=== PATIENT | female | born 1940 | race African-American/Black ===

== ENCOUNTER 2024-11-03 16:00 | Inpatient (IN) | payer OTHER, MEDICAID ==
[~2024-11-03] VITALS: Ht 162.6 cm; Wt 65.5 kg
--- NOTE | 2024-11-03 16:13 | ED.PDOC ---
History of Present Illness HPI Comments 84 y/o F, MARCO presents to the ED for CC of ALOC. EMS reports, patient experienced a fall in her bathtub x1week ago and as a result patient has grown progressively disoriented. Patient currently A&ox0 last know well x1week ago. Family members, relay change in behavior and decrease in activity. Patient is a hospice patient and has DNR order. No other symptoms or modifying factors present at this time. 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 Family History Family History: Unknown Social History Smoker: Non-Smoker Alcohol: Denies ETOH Use Drugs: Denies Drug Use Lives In: Home Unable to Obtain due to: Altered Mental Status Physical Exam General Appearance: No Apparent Distress, Normal HEENT: Normal ENT Inspection, Pharynx Normal, TMs Normal Neck: Full Range of Motion, Non-Tender, Normal, Normal Inspection Respiratory: Chest Non-Tender, Lungs Clear, No Accessory Muscle Use, No Respiratory Distress, Normal Breath Sounds Cardiovascular: No Edema, No JVD, No Murmur, No Gallop, Normal Peripheral Pul ses, Regular Rate/Rhythm Breast Exam: Deferred Gastrointestinal: No Organomegaly, Non Tender, No Pulsatile Mass, Normal Bowel Sounds, Soft Genitalia: Deferred Pelvic: Deferred Rectal: Deferred Extremities: No calf tenderness, Normal capillary refill, Normal inspection, Normal range of motion, Non-tender, No pedal edema Musculoskeletal : Apperance: Normal Neurologic: Other (SEVERLY DEMENTED) Cerebellar Function: Normal Reflexes: Normal Skin: Dry, Normal Color, Warm Lymphatic: No Adenopathy Was a procedure done? Was a procedure done?: No Differential Dx Considerations may include: STRAIN, SPRAIN, CONTUSION, FRACTURE, UTI, ELECTROLYTE IMBALANCE, HYPOGLYCEMIA, sepsis, encephalopathy X-Ray, Labs, Meds, VS Vital Signs Date Time Temp Pulse Resp B/P (MAP) Pulse Ox O2 Delivery O2 Flow Rate FiO2 11/03/24 16:50 Nasal Cannula* 2 28 11/03/24 16:13 97.3 65 18 70/54 (59) 90 97.3 11/03/24 16:07 67 Lab Test 11/03/24 18:19 11/03/24 18:01 11/03/24 18:00 Range/Units White Blood Count 11.0 H 4.4-10.8 10^3/uL Red Blood Count 5.38 H 4.0-5.20 10^6/uL Hemoglobin 12.3 12.2-16.2 g/dL Hematocrit 38.2 36.0-46.0 % Mean Corpuscular Volume 71.0 L 80.0-100.0 fL Mean Corpuscular Hemoglobin 22.9 L 28.0-32.0 pg Mean Corpuscular Hemoglobin Concent 32.3 32.0-36.0 g/dL Red Cell Distribution Width 15.3 H 11.8-14.3 % Platelet Count 241 140-450 10^3/uL Mean Platelet Volume 9.3 6.9-10.8 fL Neutrophils (%) (Auto) 84.3 H 37.0-80.0 % Lymphocytes (%) (Auto) 10.1 10.0-50.0 % Monocytes (%) (Auto) 5.2 0.0-12.0 % Eosinophils (%) (Auto) 0.1 0.0-7.0 % Basophils (%) (Auto) 0.3 0.0-2.0 % Neutrophils # (Auto) 9.2 H 1.6-8.6 10 ^3/uL Lymphocytes # (Auto) 1.1 0.4-5.4 10 ^3/uL Monocytes # (Auto) 0.6 0-1.3 10 ^3/uL Eosinophils # (Auto) 0 0-0.8 10 ^3/uL Basophils # (Auto) 0 0-0.2 10 ^3/uL Nucleated Red Blood Cells 0.0 % Sodium Level 150 H 136-145 mmol/L Potassium Level 4.7 3.5-5.1 mmol/L Chloride Level 114 H 98-107 mmol/L Carbon Dioxide Level 25 20-31 mmol/L Anion Gap 11 5-15 Blood Urea Nitrogen 177 *H 9-23 mg/dL Creatinine 2.82 H 0.550-1.02 mg/dL Glomerular Filtration Rate Calc 16 >90 mL/min BUN/Creatinine Ratio 62.8 H 10.0-20.0 Serum Glucose 178 H 74-106 mg/dL Calcium Level 8.5 L 8.7-10.4 mg/dL Troponin I High Sensitivity Pending POC Glucose 155 H 70-106 mg/dl Urine Color Yellow Yellow Urine Clarity Turbid H Clear Urine pH 5.0 5.0-9.0 Urine Specific [place] 1.021 1.001-1.035 Urine Protein Trace H Negative Urine Ketones Negative Negative Urine Blood 2+ H Negative /uL Urine Nitrite Negative Negative Urine Bilirubin Negative Negative Urine Urobilinogen 3 H Negative mg/dL Urine Leukocyte Esterase 3+ Negative /uL Urine RBC 235 0 - 4 /hpf Urine Microscopic WBC 59 H 0-5 /HPF Urine Squamous Epithelial Cells Few <5 /hpf Urine Bacteria Few H None Seen /hpf Urine Hyaline Casts Many 0 - 2 /lpf Urine Mucus Few None Seen Urine Glucose Normal Normal mg/dL Current Medications Medications (Trade) Dose Ordered Sig/Roman Route Start Time Stop Time Status Last Admin Sodium Chloride 1,650 ml @ 1,650 mls/hr ONCE ONCE IV 11/03/24 18:30 11/03/24 19:29 11/03/24 18:26 Piperacillin Sod/ Tazobactam Sod 100 ml @ 100 mls/hr ONCE ONCE IV 11/03/24 18:30 11/03/24 19:29 11/03/24 18:28 [place] [id number] Ph: [phone] DIAGNOSTIC IMAGING Diagnostic Imaging Report : [id number] Signed PATIENT: TUAN SCOTT THERESAACCT: [id number] UNIT: [id number] : 1940 LOC: ER ROOM / BED: / AGE / SEX: 84 / F ADM STATUS: REG ER SERVICE 1609 ORDERING PHYSICIAN: IZABEL POWELL MD PROCEDURE(s): CXRP - CHEST PORTABLE REASON: altered ORDER NUMBER(s): [id number], ACCESSION NUMBER(s): [id number] CHEST PORTABLE, HISTORY: altered COMPARISON: None None TECHNICAL DATA: 1 view of the chest was obtained. FINDINGS: Lines and tubes: A cardiac pacer is seen. Cardiomediastinal silhouette: normal Pulmonary vasculature: normal Lung expansion: normal Lung airspace: normal Lung interstitium: normal Pleura: normal Pneumothorax: no Bones: Unremarkable Other: no IMPRESSION: No acute intrathoracic abnormality. ATED BY: FRANCISCO CATALAN MD DICTATED DATE/TIME: 11/03/241730 SIGNED BY: FRANCISCO CATALAN MD SIGNED DATE/TIME: 11/03/241730 CC: Time of 1ST Reevaluation: 16:40 Reevaluation 1ST: Unchanged Time of 2ND Reevaluation: 19:16 Reevaluation 2ND: Unchanged Patient Education/Counseling: Diagnosis, Treatment Family Education/Counseling: No Family Present Comments The following charts were reviewed from patient's prior visits: The following tests were ordered, and results were reviewed by me: R HIP COMPLETE XRAY, R FEMUR XRAY, R KNEE 3V XRAY, R TIB FIB XRAY, CBC, BMP, CXR, EKG X3, TROPONINX2, UA, Additional Information was gathered from interviewing the following independent historians: EMS I reviewed and agreed with the following test results read by other providers: R HIP COMPLETE XRAY, R FEMUR XRAY, R KNEE 3V XRAY, R TIB FIB XRAY, I discussed treatment and results with medical personnel and: Patient AND FAMILY Comprehensive systems review obtained and negative except for what is stated in the HPI. Sepsis Sepsis Reasesment Focused Exam Sepsis focused exam: focus exam completed, time: (1915) Departure 1 Departure Time of Disposition: 19:10 Impression: Primary Impression: UTI (urinary tract infection) Qualified Codes: N30.00 - Acute cystitis without hematuria Additional Impressions: Sepsis Qualified Codes: A41.9 - Sepsis, unspecified organism Renal failure Qualified Codes: N17.9 - Acute kidney failure, unspecified Metabolic encephalopathy Dehydration Disposition: ADMITTED INPATIENT Admit to: ICU Condition: Critical Discharged With: Relative Critical Care Note Critical Care Time?: Yes (55 min-critical care time only) Critical care comment: Due to concerns for patients condition deteriorating, the care required my highest level of attention and readiness to intervene. I assessed the patient, reviewed the medical records, ordered the appropriate tests and treatments, then reassessed for results and responsiveness. I communicated with medical personnel and consultants and formulated a plan of care. Total critical care time excludes any procedures Stability Stability form required: No Heart Score Heart Score: Heart Score Response (Comments) Value History N/A 0 EKG N/A 0 Age N/A 0 Risk Factors N/A 0 Troponin N/A 0 Total 0 I personally scribed for IZABEL POWELL MD ([email or web address]) on 11/03/24 at 16:13. Electronically submitted by Radha Yen ([email or web address]). I personally scribed for IZABEL POWELL MD ([email or web address]) on 11/03/24 at 16:22. Electronically submitted by Radha Yen ([email or web address]). I personally scribed for IZABEL POWELL MD ([email or web address]) on 11/03/24 at 17:19. Electronically submitted by Radha Yen ([email or web address]). I personally scribed for IZABEL POWELL MD ([email or web address]) on 11/03/24 at 17:36. Electronically submitted by Radha Yen ([email or web address]). I personally scribed for IZABEL POWELL MD ([email or web address]) on 11/03/24 at 17:44. Electronically submitted by Radha Yen ([email or web address]). IZABEL POWELL MD Nov 03, 2024 16:13
--- NOTE | 2024-11-03 17:30 | DVH ---
XY R TIB FIB XRAY, INDICATION: injury TECHNICAL DATA: Frontal and lateral views were obtained of the right leg. COMPARISON: None FINDINGS: There is no osseous abnormality. Soft tissues are normal. IMPRESSION: No acute fracture or dislocation.
--- NOTE | 2024-11-03 17:31 | DVH ---
XY R HIP COMPLETE XRAY, INDICATION: injury TECHNICAL DATA: Frontal and frog lateral views were obtained of the right hip.] COMPARISON: None FINDINGS: The right hip is normally located. The right hip joint is normally maintained with no marginal osteop hytes. No right hip fracture is identified. The right sacroiliac joint appears normal. Calcified fi broid. IMPRESSION: No acute abnormal radiographs of the right hip.
--- NOTE | 2024-11-03 17:31 | DVH ---
XY R FEMUR XRAY, INDICATION: injury TECHNICAL DATA: Frontal and lateral views were obtained of the right femur. COMPARISON: None FINDINGS: There is no osseous abnormality. Soft tissues are normal. IMPRESSION: No acute fracture or dislocation.
--- NOTE | 2024-11-03 17:31 | DVH ---
CLINICAL INDICATION: injury TECHNIQUE: 3 radiographic views of the right knee were obtained. Comparison: None FINDINGS/IMPRESSION: There is no evidence of acute fracture or dislocation. Narrowing of the lateral compartment of the right knee and patellofemoral joint The alignment is anatomical. There is no radiopaque foreign body.
--- NOTE | 2024-11-03 17:33 | DVH ---
XY CHEST PORTABLE, HISTORY: altered COMPARISON: None None TECHNICAL DATA: 1 view of the chest was obtained. FINDINGS: Lines and tubes: A cardiac pacer is seen. Cardiomediastinal silhouette: normal Pulmonary vasculature: normal Lung expansion: normal Lung airspace: normal Lung interstitium: normal Pleura: normal Pneumothorax: no Bones: Unremarkable Other: no IMPRESSION: No acute intrathoracic abnormality.
[2024-11-03] MEDS: SODIUM CHLORIDE 0.9% 1,650 ML IV ONE (18:26)
[2024-11-03] MEDS: PIPERACILLIN-TAZO 4.5GM 100 ML IV ONE (18:28)
[2024-11-03 18:37] LABS: Basophils # (auto) 0 10 ^3/uL (0-0.2); Eosinophils # (auto) 0 10 ^3/uL (0-0.8); Eosinophils % (auto) 0.1 % (0.0-7.0); Lymphocytes # (auto) 1.1 10 ^3/uL (0.4-5.4); Monocytes # (auto) 0.6 10 ^3/uL (0-1.3); Neutrophils # (auto) 9.2 10 ^3/uL (1.6-8.6); Platelet Count (auto) 241 10^3/uL (140-450)
[2024-11-03 18:39] LABS: Basophils % (auto) 0.3 % (0.0-2.0); Hematocrit 38.2 % (36.0-46.0); Hemoglobin 12.3 g/dL (12.2-16.2); Lymphocytes % (auto) 10.1 % (10.0-50.0); Mean Corpuscular Hemoglobin 22.9 pg (28.0-32.0); Mean Corpuscular Hgb Conc. 32.3 g/dL (32.0-36.0); Monocytes % (auto) 5.2 % (0.0-12.0); Neutrophils % (auto) 84.3 % (37.0-80.0); Red Blood Cells 5.38 10^6/uL (4.0-5.20); Red Cell Distribution Width 15.3 % (11.8-14.3)
[2024-11-03 18:42] LABS: Urine Bacteria FEW /hpf (None Seen); Urine Blood 2+ /uL (Negative); Urine Clarity Turbid (Clear); Urine Color Yellow (Yellow); Urine Hyaline Cast MANY /lpf (0 - 2); Urine Mucus FEW (None Seen); Urine Protein, UAD TRACE (Negative); Urine Specific Gravity 1.021 (1.001-1.035); Urine Squamous Epithelial Cell FEW /hpf (<5); Urine Urobilinogen 3 mg/dL (Negative); Urine WBC 59 /HPF (0-5)
[2024-11-03 18:43] LABS: Anion Gap 11 (5-15); Carbon Dioxide 25 mmol/L (20-31); Chloride 114 mmol/L (98-107); Potassium 4.7 mmol/L (3.5-5.1); Sodium 150 mmol/L (136-145)
[2024-11-03 18:45] LABS: Calcium 8.5 mg/dL (8.7-10.4)
[2024-11-03 18:49] LABS: Glucose 178 mg/dL (74-106)
[2024-11-03 18:57] LABS: BUN/Creatinine Ratio 62.8 (10.0-20.0)
[2024-11-03 19:01] LABS: Blood Urea Nitrogen 177 mg/dL (9-23)
--- NOTE | 2024-11-03 19:43 | DVH ---
CLINICAL INDICATION: pain TECHNIQUE: 4 radiographic views of the left femur were obtained. Comparison: XY R FEMUR XRAY on DOS: 11/03/24 FINDINGS/IMPRESSION: There is no evidence of acute fracture or dislocation. The visualized joint space is well maintained. The alignment is anatomical. There is no radiopaque foreign body.
[2024-11-03 20:41] VITALS: PULSE 84; RESP 12; O2SAT 94
[2024-11-03] MEDS: NOREPINEPHRINE 8 MG/250ML KIT 250 ML IV PRN (22:09)
[2024-11-04] MEDS ORDERED: NITROGLYCERIN 0.4 MG SL TAB SL PRN
[2024-11-04] MEDS: D5W/SOD CHLO 0.9% 1,000 ML IV ONE (00:27)
[2024-11-04 00:49] LABS: Lactic Acid w/Reflex 2.6 mmol/L (0.4-2.0)
[2024-11-04] MEDS ORDERED: VANCOMYCIN PER PHARMACY 0 MG IV SCH (04:30)
--- NOTE | 2024-11-04 04:30 | DVHHP2 ---
History of Present Illness Reason for Visit: Generalized weakness History of Present Illness 84-year-old female presents for evaluation of generalized weakness. Patient has progressively become weaker after she had a fall a week ago. Patient is currently on hospice. Patient has had decreased oral intake and appetite. No cardiac or respiratory complaints. No neurologic focal deficits. Past Medical History Hypertension, dyslipidemia and dementia Past Surgical History Pacemaker Family History Noncontributory Smoke: No ALCOHOL: none Drugs: None Lives: with Family Review of Systems Review of Systems Unable to complete review of systems due to the patient's altered mental status. Allergies: Coded Allergies: NO KNOWN ALLERGIES (Unverified , 11/03/24) Medications Current Medications Medications Dose Ordered Sig/Roman Route Start Time Stop Time Status Last Admin Dose Admin Piperacillin Sod/ Tazobactam Sod 100 ml @ 25 mls/hr Q8HR IV 11/04/24 06:00 Norepinephrine Bitartrate 250 ml @ 3.75 mls/hr Q24H PRN IV 11/03/24 20:00 11/03/24 22:09 3.75 MLS/HR Nitroglycerin 0.4 mg Q5MINP PRN SL 11/04/24 00:00 Morphine Sulfate 2 mg Q30M PRN IV 11/04/24 00:00 Ondansetron HCl 4 mg Q4HP PRN IV 11/04/24 00:00 Exam Vital Signs Vital Signs Date Time Temp Pulse Resp B/P (MAP) Pulse Ox O2 Delivery O2 Flow Rate FiO2 11/04/24 03:00 111/67 11/04/24 03:00 73 11 99 11/03/24 22:00 98.4 98.4 11/03/24 20:41 Nasal Cannula* 2 28 Exam Gen: 84-year-old female in mild distress. Skin: Warm, dry, normal color and texture, no rash. HEENT: Normocephalic atraumatic, mucous membranes moist and pink. Neck: Cervical and supraclavicular nodes normal without enlargement, trachea is midline, thyroid gland is normal without masses. Pulmonary: Clear to auscultation and percussion bilaterally. Cardiac: Regular rate and rhythm. No murmur Abdomen: Soft, nontender, nondistended, bowel sounds present all 4 quadrants, no guarding, no rigidity, no organomegaly. Extremities: No cyanosis, clubbing, no edema Neuro: Cranial nerves II through XII grossly intact, normal affect and speech, no focal motor deficits. Labs/Xrays ORDERING PHYSICIAN: IZABEL POWELL MD PROCEDURE(s): RHIP - R HIP COMPLETE XRAY REASON: injury ORDER NUMBER(s): [id number], ACCESSION NUMBER(s): [id number] XY R HIP COMPLETE XRAY, INDICATION: injury TECHNICAL DATA: Frontal and frog lateral views were obtained of the right hip.] COMPARISON: None FINDINGS: The right hip is normally located. The right hip joint is normally maintained with no marginal osteophytes. No right hip fracture is identified. The right sacroiliac joint appears normal. Calcified fibroid. IMPRESSION: No acute abnormal radiographs of the right hip. RING PHYSICIAN: IZABEL POWELL MD PROCEDURE(s): CXRP - CHEST PORTABLE REASON: altered ORDER NUMBER(s): [id number], ACCESSION NUMBER(s): [id number] CHEST PORTABLE, HISTORY: altered COMPARISON: None None TECHNICAL DATA: 1 view of the chest was obtained. FINDINGS: Lines and tubes: A cardiac pacer is seen. Cardiomediastinal silhouette: normal Pulmonary vasculature: normal Lung expansion: normal Lung airspace: normal Lung interstitium: normal Pleura: normal Pneumothorax: no Bones: Unremarkable Other: no IMPRESSION: No acute intrathoracic abnormality. Labs Test 11/04/24 02:03 11/04/24 00:30 11/03/24 19:30 11/03/24 18:19 Range/Units Lactic Acid Level 1.6 0.4-2.0 mmol/L Sodium Level 151 H 136-145 mmol/L Troponin I High Sensitivity 19 </=34 ng/L White Blood Count 11.0 H 4.4-10.8 10^3/uL Red Blood Count 5.38 H 4.0-5.20 10^6/uL Hemoglobin 12.3 12.2-16.2 g/dL Hematocrit 38.2 36.0-46.0 % Mean Corpuscular Volume 71.0 L 80.0-100.0 fL Mean Corpuscular Hemoglobin 22.9 L 28.0-32.0 pg Mean Corpuscular Hemoglobin Concent 32.3 32.0-36.0 g/dL Red Cell Distribution Width 15.3 H 11.8-14.3 % Platelet Count 241 140-450 10^3/uL Mean Platelet Volume 9.3 6.9-10.8 fL Neutrophils (%) (Auto) 84.3 H 37.0-80.0 % Lymphocytes (%) (Auto) 10.1 10.0-50.0 % Monocytes (%) (Auto) 5.2 0.0-12.0 % Eosinophils (%) (Auto) 0.1 0.0-7.0 % Basophils (%) (Auto) 0.3 0.0-2.0 % Neutrophils # (Auto) 9.2 H 1.6-8.6 10 ^3/uL Lymphocytes # (Auto) 1.1 0.4-5.4 10 ^3/uL Monocytes # (Auto) 0.6 0-1.3 10 ^3/uL Eosinophils # (Auto) 0 0-0.8 10 ^3/uL Basophils # (Auto) 0 0-0.2 10 ^3/uL Nucleated Red Blood Cells 0.0 % Potassium Level 4.7 3.5-5.1 mmol/L Chloride Level 114 H 98-107 mmol/L Carbon Dioxide Level 25 20-31 mmol/L Anion Gap 11 5-15 Blood Urea Nitrogen 177 *H 9-23 mg/dL Creatinine 2.82 H 0.550-1.02 mg/dL Glomerular Filtration Rate Calc 16 >90 mL/min BUN/Creatinine Ratio 62.8 H 10.0-20.0 Serum Glucose 178 H 74-106 mg/dL Calcium Level 8.5 L 8.7-10.4 mg/dL Test 11/03/24 18:01 11/03/24 18:00 Range/Units POC Glucose 155 H 70-106 mg/dl Urine Color Yellow Yellow Urine Clarity Turbid H Clear Urine pH 5.0 5.0-9.0 Urine Specific [place] 1.021 1.001-1.035 Urine Protein Trace H Negative Urine Ketones Negative Negative Urine Blood 2+ H Negative /uL Urine Nitrite Negative Negative Urine Bilirubin Negative Negative Urine Urobilinogen 3 H Negative mg/dL Urine Leukocyte Esterase 3+ Negative /uL Urine RBC 235 0 - 4 /hpf Urine Microscopic WBC 59 H 0-5 /HPF Urine Squamous Epithelial Cells Few <5 /hpf Urine Bacteria Few H None Seen /hpf Urine Hyaline Casts Many 0 - 2 /lpf Urine Mucus Few None Seen Urine Glucose Normal Normal mg/dL Assessment/Plan Assessment/Plan Assessment Septic shock Acute renal failure Metabolic encephalopathy Urinary tract infection Hypernatremia Plan Admit the patient to ICU to the hospitalist Continue Levophed Rocephin/vancomycin Continue treatment per orders Total critical care time excluding procedures performed this 50 minutes. Plan discussed with: Other My Orders Orders - GENNY VALERIO Procedure Category Date Status Time Admit ADMIT 11/03/24 Transmitted 23:56 Nitroglycerin PHA 11/04/24 In Process Sublingual (Ntrostat 00:00 Morphine Sulfate PHA 11/04/24 In Process Injection 00:00 Stat Ekg For Chest NATHANIEL 11/03/24 In Process Pain 23:56 Notify Md Of Changes NATHANIEL 11/03/24 In Process From Base 23:56 Sap Hana Developer For NATHANIEL 11/03/24 In Process 24 Hours 23:56 Emergency Dysrhythmia NATHANIEL 11/03/24 In Process Protocol 23:56 Rhythm Strips Once NATHANIEL 11/03/24 In Process Every Shift 23:56 Oxygen By Nasal RT 11/03/24 Transmitted Cannula 23:56 Sodium LAB 11/04/24 Logged 12:00 Sodium LAB 11/04/24 Logged 18:00 D5w/Sod Chlo 0.9% PHA 11/04/24 In Process (D5w Ns 0.9%) 00:00 *Dr. Jamison Tirado CONS 11/03/24 Transmitted -[place] 23:58 Ondansetron Hcl PHA 11/04/24 In Process (Zofran) 00:00 Complete Blood Count LAB 11/04/24 Logged 04:00 Comprehensive LAB 11/04/24 Logged Metabolic Panel 04:00 Npo (Nothing By DIET 11/04/24 Transmitted Mouth) Diet Breakfast Condition: Unstable NATHANIEL 11/03/24 In Process 23:58 Maintain Bed Rest NATHANIEL 11/03/24 In Process 23:58 Date of Service: Nov 03, 2024 Billing Provider: GENNY VALERIO Common Visit Codes: [id number] CARE 30-74 MIN GENNY VALERIO Nov 04, 2024 04:30
[2024-11-04] MEDS: D5W/SOD CHL 0.45% 1,000 ML IV ONE (04:53)
[2024-11-04] MEDS: VANCOMYCIN 1GM/200ML PM 200 ML IV ONE (05:17)
[2024-11-04] MEDS ORDERED: PIPERACILLIN-TAZO 4.5GM 100 ML IV SCH (06:00)
[2024-11-04 06:19] LABS: Basophils # (auto) 0 10 ^3/uL (0-0.2); Eosinophils # (auto) 0 10 ^3/uL (0-0.8); Hemoglobin 11.6 g/dL (12.2-16.2); Lymphocytes # (auto) 1.1 10 ^3/uL (0.4-5.4); Mean Corpuscular Hemoglobin 22.6 pg (28.0-32.0); Monocytes # (auto) 0.8 10 ^3/uL (0-1.3); Monocytes % (auto) 5.2 % (0.0-12.0); Neutrophils # (auto) 12.8 10 ^3/uL (1.6-8.6); White Blood Cell 14.7 10^3/uL (4.4-10.8)
[2024-11-04 06:20] LABS: Basophils % (auto) 0.2 % (0.0-2.0); Eosinophils % (auto) 0.1 % (0.0-7.0); Lymphocytes % (auto) 7.2 % (10.0-50.0); Mean Corpuscular Hgb Conc. 31.4 g/dL (32.0-36.0); Mean Corpuscular Volume 71.9 fL (80.0-100.0); Neutrophils % (auto) 87.3 % (37.0-80.0); Platelet Count (auto) 231 10^3/uL (140-450); Red Blood Cells 5.15 10^6/uL (4.0-5.20); Red Cell Distribution Width 15.3 % (11.8-14.3)
[2024-11-04 06:35] LABS: Alanine Aminotransferase 27 U/L (7-40); Alkaline Phosphatase 73 U/L (46-116); Anion Gap 11 (5-15); BUN/Creatinine Ratio 69.8 (10.0-20.0); Carbon Dioxide 24 mmol/L (20-31); Potassium 4.3 mmol/L (3.5-5.1)
[2024-11-04 06:43] LABS: Albumin 3.2 g/dL (3.2-4.8); Aspartate Aminotransferase 40 U/L (13-40); Bilirubin, Total 0.2 mg/dL (0.2-1.0); Blood Urea Nitrogen 141 mg/dL (9-23); Calcium 8.6 mg/dL (8.7-10.4); Chloride 119 mmol/L (98-107); Glucose 225 mg/dL (74-106); Sodium 154 mmol/L (136-145); Total Protein 5.6 g/dL (5.7-8.2)
[2024-11-04] MEDS: cefTRIAXone 1GM/50ML D5W 50 ML IV SCH (09:30)
--- NOTE | 2024-11-04 13:04 | DVHINCON2 ---
Date of service: Nov 04, 2024 Referring Physician King Menon NP Reason for Consultation Mrs. Gallagher is a 84-year-old female with known history of Alzheimer's dementia who presented for further evaluation and management of progressive clinical decline and altered mentation worse than baseline. Most of the history was obtained through the patient's son and patient's [id number] were at bedside during my evaluation. They report that she has been on hospice services and that Mrs. Gallagher has not been able to ingest adequate amounts of fluids. They state that she developed a bedsore recently at home. Diagnostic evaluation since admission notable for hypernatremia, significant azotemia, elevated serum creatinine. She has been treated with hypotonic IV fluids. History of Present Illness Alzheimer's dementia Allergies: Coded Allergies: NO KNOWN ALLERGIES (Unverified , 11/03/24) Current Medications Current Medications Medications (Trade) Dose Ordered Sig/Roman Route PRN Reason Start Time Stop Time Status Last Admin Piperacillin Sod/ Tazobactam Sod 100 ml @ 25 mls/hr Q8HR IV 11/04/24 06:00 11/04/24 04:31 DC Norepinephrine Bitartrate 250 ml @ 3.75 mls/hr Q24H PRN IV map<65 11/03/24 20:00 11/03/24 22:09 Nitroglycerin (Ntrostat Sublingual) 0.4 mg Q5MINP PRN SL FOR CHEST PAIN 11/04/24 00:00 Morphine Sulfate 2 mg Q30M PRN IV FOR CHEST PAIN 11/04/24 00:00 Ondansetron HCl (Zofran) 4 mg Q4HP PRN IV NAUSEA / VOMITING 11/04/24 00:00 Ceftriaxone Sodium 50 ml @ 100 mls/hr DAILY@09 IV 11/04/24 09:00 11/04/24 09:30 Vancomycin HCl 0 ml @ 0 mls/hr UD IV 11/04/24 04:30 Review of Systems Unable to obtain due to patient's mental status H&P Exam Vital Signs/I&O Vital Sign Date Time Temp Pulse Resp B/P (MAP) Pulse Ox O2 Delivery O2 Flow Rate FiO2 11/04/24 10:00 89 14 118/70 (86) 89 11/04/24 08:00 97.2 97.2 11/03/24 20:41 Nasal Cannula* 2 28 Intake and Output 11/03/24 11/04/24 19:00 07:00 Intake Total 2212.5 ml Output Total 100 ml Balance 2112.5 ml Intake IV Total 2212.5 ml Output Urine Total 100 ml Physical Exam Gen: nad, supine, cachectic heent: nc/at, dry oral mucosa lungs: cta anteriorly cvs: no rub abd: soft, bowel sounds audible ext: no edema skin: no rash neuro: Somnolent Labs/Diagnostic Data Labs/Diagnostic Data Laboratory Tests Test 11/04/24 11:57 11/04/24 06:03 11/04/24 02:03 11/04/24 00:30 Range/Units Sodium Level 154 H 154 H 151 H 136-145 mmol/L White Blood Count 14.7 #H 4.4-10.8 10^3/uL Red Blood Count 5.15 4.0-5.20 10^6/uL Hemoglobin 11.6 L 12.2-16.2 g/dL Hematocrit 37.0 36.0-46.0 % Mean Corpuscular Volume 71.9 L 80.0-100.0 fL Mean Corpuscular Hemoglobin 22.6 L 28.0-32.0 pg Mean Corpuscular Hemoglobin Concent 31.4 L 32.0-36.0 g/dL Red Cell Distribution Width 15.3 H 11.8-14.3 % Platelet Count 231 140-450 10^3/uL Mean Platelet Volume 9.1 6.9-10.8 fL Neutrophils (%) (Auto) 87.3 H 37.0-80.0 % Lymphocytes (%) (Auto) 7.2 L 10.0-50.0 % Monocytes (%) (Auto) 5.2 0.0-12.0 % Eosinophils (%) (Auto) 0.1 0.0-7.0 % Basophils (%) (Auto) 0.2 0.0-2.0 % Neutrophils # (Auto) 12.8 H 1.6-8.6 10 ^3/uL Lymphocytes # (Auto) 1.1 0.4-5.4 10 ^3/uL Monocytes # (Auto) 0.8 0-1.3 10 ^3/uL Eosinophils # (Auto) 0 0-0.8 10 ^3/uL Basophils # (Auto) 0 0-0.2 10 ^3/uL Nucleated Red Blood Cells 0.0 % Potassium Level 4.3 3.5-5.1 mmol/L Chloride Level 119 H 98-107 mmol/L Carbon Dioxide Level 24 20-31 mmol/L Anion Gap 11 5-15 Blood Urea Nitrogen 141 #*H 9-23 mg/dL Creatinine 2.02 H 0.550-1.02 mg/dL Glomerular Filtration Rate Calc 24 >90 mL/min BUN/Creatinine Ratio 69.8 H 10.0-20.0 Serum Glucose 225 H 74-106 mg/dL Calcium Level 8.6 L 8.7-10.4 mg/dL Total Bilirubin 0.2 0.2-1.0 mg/dL Aspartate Amino Transferase (AST) 40 13-40 U/L Alanine Aminotransferase (ALT) 27 7-40 U/L Alkaline Phosphatase 73 46-116 U/L Total Protein 5.6 L 5.7-8.2 g/dL Albumin 3.2 3.2-4.8 g/dL Lactic Acid Level 1.6 0.4-2.0 mmol/L Test 11/03/24 23:55 11/03/24 19:30 11/03/24 18:19 11/03/24 18:01 Range/Units Lactic Acid Level 2.6 *H 0.4-2.0 mmol/L Troponin I High Sensitivity 19 20 </=34 ng/L White Blood Count 11.0 H 4.4-10.8 10^3/uL Red Blood Count 5.38 H 4.0-5.20 10^6/uL Hemoglobin 12.3 12.2-16.2 g/dL Hematocrit 38.2 36.0-46.0 % Mean Corpuscular Volume 71.0 L 80.0-100.0 fL Mean Corpuscular Hemoglobin 22.9 L 28.0-32.0 pg Mean Corpuscular Hemoglobin Concent 32.3 32.0-36.0 g/dL Red Cell Distribution Width 15.3 H 11.8-14.3 % Platelet Count 241 140-450 10^3/uL Mean Platelet Volume 9.3 6.9-10.8 fL Neutrophils (%) (Auto) 84.3 H 37.0-80.0 % Lymphocytes (%) (Auto) 10.1 10.0-50.0 % Monocytes (%) (Auto) 5.2 0.0-12.0 % Eosinophils (%) (Auto) 0.1 0.0-7.0 % Basophils (%) (Auto) 0.3 0.0-2.0 % Neutrophils # (Auto) 9.2 H 1.6-8.6 10 ^3/uL Lymphocytes # (Auto) 1.1 0.4-5.4 10 ^3/uL Monocytes # (Auto) 0.6 0-1.3 10 ^3/uL Eosinophils # (Auto) 0 0-0.8 10 ^3/uL Basophils # (Auto) 0 0-0.2 10 ^3/uL Nucleated Red Blood Cells 0.0 % Sodium Level 150 H 136-145 mmol/L Potassium Level 4.7 3.5-5.1 mmol/L Chloride Level 114 H 98-107 mmol/L Carbon Dioxide Level 25 20-31 mmol/L Anion Gap 11 5-15 Blood Urea Nitrogen 177 *H 9-23 mg/dL Creatinine 2.82 H 0.550-1.02 mg/dL Glomerular Filtration Rate Calc 16 >90 mL/min BUN/Creatinine Ratio 62.8 H 10.0-20.0 Serum Glucose 178 H 74-106 mg/dL Calcium Level 8.5 L 8.7-10.4 mg/dL POC Glucose 155 H 70-106 mg/dl Test 11/03/24 18:00 Range/Units Urine Color Yellow Yellow Urine Clarity Turbid H Clear Urine pH 5.0 5.0-9.0 Urine Specific [place] 1.021 1.001-1.035 Urine Protein Trace H Negative Urine Ketones Negative Negative Urine Blood 2+ H Negative /uL Urine Nitrite Negative Negative Urine Bilirubin Negative Negative Urine Urobilinogen 3 H Negative mg/dL Urine Leukocyte Esterase 3+ Negative /uL Urine RBC 235 0 - 4 /hpf Urine Microscopic WBC 59 H 0-5 /HPF Urine Squamous Epithelial Cells Few <5 /hpf Urine Bacteria Few H None Seen /hpf Urine Hyaline Casts Many 0 - 2 /lpf Urine Mucus Few None Seen Urine Glucose Normal Normal mg/dL Assessment IMP: 1) Hemodynamically mediated HERIBERTO/VMN, prerenal etiology 2) CKD stage III B? 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 Will continue to follow closely with you. Thank you for the consultation. Plan discussed with: Daughter, Son ARTHUR MONTENEGRO MD Nov 04, 2024 13:04
--- NOTE | 2024-11-04 13:39 | DVHPN2 ---
Reviewed: Care Plan, H&P, Labs, Medications, Previous Orders, Radiology Changes from previous H/P or p: No Changes Objective Vitals Vital Signs Date Time Temp Pulse Resp B/P (MAP) Pulse Ox O2 Delivery O2 Flow Rate FiO2 11/04/24 13:00 91 13 123/57 (79) 94 11/04/24 08:00 97.2 97.2 11/03/24 20:41 Nasal Cannula* 2 28 Intake/Output Intake and Output 11/04/24 07:00 Intake Total 2212.5 ml Output Total 100 ml Balance 2112.5 ml Intake IV Total 2212.5 ml Output Urine Total 100 ml Medications Current Medications Medications Dose Ordered Sig/Roman Route Start Time Stop Time Status Last Admin Dose Admin Norepinephrine Bitartrate 250 ml @ 3.75 mls/hr Q24H PRN IV 11/03/24 20:00 11/03/24 22:09 3.75 MLS/HR Nitroglycerin 0.4 mg Q5MINP PRN SL 11/04/24 00:00 Morphine Sulfate 2 mg Q30M PRN IV 11/04/24 00:00 Ondansetron HCl 4 mg Q4HP PRN IV 11/04/24 00:00 Ceftriaxone Sodium 50 ml @ 100 mls/hr DAILY@09 IV 11/04/24 09:00 11/04/24 09:30 100 MLS/HR Vancomycin HCl 0 ml @ 0 mls/hr UD IV 11/04/24 04:30 Laboratory Results Laboratory Tests 11/04/24 06:03 11/04/24 11:57 Chemistry Test 11/03/24 18:19 11/04/24 06:03 Calcium Level 8.5 mg/dL (8.7-10.4) L 8.6 mg/dL (8.7-10.4) L Albumin 3.2 g/dL (3.2-4.8) Total Protein 5.6 g/dL (5.7-8.2) L LFT Test 11/04/24 06:03 Alanine Aminotransferase (ALT) 27 U/L (7-40) Alkaline Phosphatase 73 U/L (46-116) Aspartate Amino Transferase (AST) 40 U/L (13-40) Total Bilirubin 0.2 mg/dL (0.2-1.0) Urinalysis Test 11/03/24 18:00 Urine Color Yellow (Yellow) Urine Clarity Turbid (Clear) H Urine pH 5.0 (5.0-9.0) Urine Specific [place] 1.021 (1.001-1.035) Urine Protein Trace (Negative) H Urine Ketones Negative (Negative) Urine Blood 2+ /uL (Negative) H Urine Nitrite Negative (Negative) Urine Bilirubin Negative (Negative) Urine Urobilinogen 3 mg/dL (Negative) H Urine Leukocyte Esterase 3+ /uL (Negative) Urine RBC 235 /hpf (0 - 4) Urine Microscopic WBC 59 /HPF (0-5) H Urine Squamous Epithelial Cells Few /hpf (<5) Urine Bacteria Few /hpf (None Seen) H Urine Hyaline Casts Many /lpf (0 - 2) Urine Mucus Few (None Seen) Urine Glucose Normal mg/dL (Normal) Labs and/or images reviewed: Labs reviewed by me, Image(s) reviewed by me Assessment/Plan Assessment/Plan Secondary to urinary tract infection: Blood cultures urine cultures Rocephin Acute generalized weakness Hypertension Hypercholesterolemia Status post pacemaker Hemodynamically mediated HERIBERTO/VMN, prerenal etiology CKD stage III B; Nephrology consult by Dr. Swift appreciated hypernatremia toxic metabolic encephalopathy Alzheimer's dementia bed-bound status History of multiple falls multiple x-rays negative, CT head negative Patient is hospice revoked Time spent 70 minutes Patient is full code Advanced care planning time 20 minutes Plan discussed with: Patient My Orders Orders - JENNIFER TONY MD Procedure Category Date Status Time Urine Bacterial VÍCTOR 11/04/24 Transmitted Culture 13:33 Date of Service: Nov 04, 2024 Billing Provider: JENNIFER TONY MD Common Visit Codes: [id number] CARE 30-74 MIN JENNIFER TONY MD Nov 04, 2024 13:39
[2024-11-04 19:15] VITALS: PULSE 84; RESP 12; O2SAT 100
[2024-11-04] MEDS: MORPHINE SULFATE INJ 2 MG/ml SYRG IV PRN (23:04)
[2024-11-04] MEDS: ONDANSETRON HCL 4 MG/2 ML VIAL IV PRN (23:05)
[2024-11-05] VITALS (7 sets, daily range): BP systolic 102–135; BP diastolic 63–73; PULSE 67–87; RESP 16–95; TEMP 98–98.6; O2SAT 93–98
[2024-11-05 05:24] LABS: Basophils # (auto) 0 10 ^3/uL (0-0.2); Basophils % (auto) 0.3 % (0.0-2.0); Eosinophils # (auto) 0 10 ^3/uL (0-0.8); Eosinophils % (auto) 0.1 % (0.0-7.0); Hematocrit 37.2 % (36.0-46.0); Lymphocytes # (auto) 1.2 10 ^3/uL (0.4-5.4); Lymphocytes % (auto) 7.1 % (10.0-50.0); Mean Corpuscular Hemoglobin 22.4 pg (28.0-32.0); Mean Corpuscular Hgb Conc. 32.1 g/dL (32.0-36.0); Mean Corpuscular Volume 69.7 fL (80.0-100.0); Monocytes # (auto) 1.2 10 ^3/uL (0-1.3); Monocytes % (auto) 6.8 % (0.0-12.0); Neutrophils # (auto) 14.5 10 ^3/uL (1.6-8.6); Neutrophils % (auto) 85.7 % (37.0-80.0); Nucleated Red Blood Cells % 0.1 %; Platelet Count (auto) 219 10^3/uL (140-450); Red Blood Cells 5.34 10^6/uL (4.0-5.20)
[2024-11-05 05:30] LABS: Anion Gap 10 (5-15); Carbon Dioxide 27 mmol/L (20-31)
[2024-11-05 05:35] LABS: BUN/Creatinine Ratio 77.9 (10.0-20.0)
[2024-11-05 05:37] LABS: Chloride 121 mmol/L (98-107); Glucose 170 mg/dL (74-106); Sodium 158 mmol/L (136-145)
[2024-11-05 05:38] LABS: Blood Urea Nitrogen 113 mg/dL (9-23); Creatine Kinase IFCC 629 U/L (34-145)
[2024-11-05 05:48] LABS: Platelet Estimate Adequate
[2024-11-05] MEDS: MORPHINE SULFATE INJ 2 MG/ml SYRG IV PRN (06:04)
[2024-11-05] MEDS: SODIUM CHLORIDE 0.9% 1,000 ML IV ONE (07:39)
[2024-11-05] MEDS: cefTRIAXone 1GM/50ML D5W 50 ML IV SCH (09:00)
--- NOTE | 2024-11-05 09:27 | ECG ---
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
[2024-11-05] MEDS ORDERED: LINEZOLID 600MG/300ML 300 ML IV SCH (10:00)
--- NOTE | 2024-11-05 11:56 | DVHPN2 ---
Progress Note Date Seen: Nov 05, 2024 Medical Necessity Reason Pt with a Central, PICC or Fol: Yes The following are medically ne: Dick Catheter Reason for dick catheter: Strict I&O Subjective Patient reports: No new complaints Review of Systems: HEENT:Normal, CVS:Normal, RESPIRATORY:Normal, GI:Normal, :Normal, MSK:Normal, NEURO:Normal Objective vital signs Vital Sign Date Time Temp Pulse Resp B/P (MAP) Pulse Ox O2 Delivery O2 Flow Rate FiO2 11/05/24 08:12 75 11/05/24 07:37 16 100/71 11/05/24 07:30 97.4 97 97.4 11/05/24 07:30 Room Air* 0 21 Total Intake and Output 11/04/24 11/04/24 11/05/24 15:00 23:00 07:00 Intake Total 650 ml 450 ml 525 ml Output Total 100 ml Balance 550 ml 450 ml 525 ml medications Current Medications Medications Dose Ordered Sig/Roman Route Start Time Stop Time Status Last Admin Dose Admin Norepinephrine Bitartrate 250 ml @ 3.75 mls/hr Q24H PRN IV 11/03/24 20:00 11/03/24 22:09 3.75 MLS/HR Nitroglycerin 0.4 mg Q5MINP PRN SL 11/04/24 00:00 Morphine Sulfate 2 mg Q30M PRN IV 11/04/24 00:00 11/05/24 01:03 2 MG Ondansetron HCl 4 mg Q4HP PRN IV 11/04/24 00:00 11/05/24 06:02 4 MG Ceftriaxone Sodium 50 ml @ 100 mls/hr DAILY@09 IV 11/04/24 09:00 11/05/24 10:58 100 MLS/HR Vancomycin HCl 0 ml @ 0 mls/hr UD IV 11/04/24 04:30 Morphine Sulfate 2 mg Q6HPRN PRN IV 11/04/24 15:15 11/05/24 06:42 2 MG Linezolid 300 ml @ 150 mls/hr Q12HR IV 11/05/24 10:00 UNV Ceftriaxone Sodium 50 ml @ 100 mls/hr DAILY@09 IV 11/05/24 09:00 UNV Dextrose 1,000 ml @ 60 mls/hr [id number] IV 11/05/24 12:00 UNV Examination: GENERAL:Normal, HEENT:Normal, NECK:Normal, LUNGS:Normal, CVS:Normal, ABDOMEN:Normal, MSK:Normal, MSK:Abnormal (decub ulcer), SKIN:Normal, NEURO:Normal, :Normal laboratory and microbiology Laboratory Tests 11/05/24 05:13 Test 11/05/24 05:13 Range/Units Serum Glucose 170 H 74-106 mg/dL Microbiology Date/Time Source Procedure Growth Status 11/03/24 19:30 Blood Blood Culture - Preliminary NO GROWTH AFTER 24 HOURS OF INCUBATION. Resulted Problem List/Assessment/Plan Problem List/Assessment/Plan #1 septic shock with uti: iv antibiotics, ivf #2 hypernatremia: ivf #3 encephalopathy: metabolic #4 acute renal failure ?vasomotor nephropathy #5 dementia #6 s/p pacer advance care planning- full code- time spent 19mins Plan discussed with: Patient, Other (daugher in law) My Orders My Orders Orders - GENNY HERCULES MD Procedure Category Date Status Time * Swallow Request ST 11/05/24 Transmitted 11:49 D5w 5% (Dextrose 5%) PHA 11/05/24 Logged 12:00 Urine Bacterial VÍCTOR 11/05/24 Logged Culture 11:49 Basic Metabolic Panel LAB 11/06/24 Verified 06:00 Complete Blood Count LAB 11/06/24 Verified 06:00 Vitamin B12 LAB 11/06/24 Verified 06:00 Thyroid Stimulating LAB 11/06/24 Verified Hormone 05:00 Chest Portable XY 11/06/24 Logged 06:00 Date of Service: Nov 05, 2024 Billing Provider: GENNY HERCULES MD Common Visit Codes: [id number] INP/OBS CARE(HIGH) Secondary Visit Codes: [id number] CARE PLAN 30 MINUTES GENNY HERCULES MD Nov 05, 2024 11:56
[2024-11-05] MEDS ORDERED: D5W 5% 1,000 ML IV SCH (12:00)
[2024-11-05] MEDS: D5W 5% 1,000 ML IV SCH (12:00)
--- NOTE | 2024-11-05 12:48 | DVHPN2 ---
Progress Note Date Seen: Nov 05, 2024 Medical Necessity Reason Pt with a Central, PICC or Fol: Yes The following are medically ne: Dick Catheter Reason for dick catheter: Strict I&O Subjective Patient reports: Other (Nonverbal due to dementia family at bedside) Objective vital signs Vital Sign Date Time Temp Pulse Resp B/P (MAP) Pulse Ox O2 Delivery O2 Flow Rate FiO2 11/05/24 11:54 98.0 73 95 102/73 (83) 95 98.0 11/05/24 07:30 Room Air* 0 21 Total Intake and Output 11/04/24 11/04/24 11/05/24 15:00 23:00 07:00 Intake Total 650 ml 450 ml 525 ml Output Total 100 ml Balance 550 ml 450 ml 525 ml medications Current Medications Medications Dose Ordered Sig/Roman Route Start Time Stop Time Status Last Admin Dose Admin Nitroglycerin 0.4 mg Q5MINP PRN SL 11/04/24 00:00 Morphine Sulfate 2 mg Q30M PRN IV 11/04/24 00:00 11/05/24 01:03 2 MG Ondansetron HCl 4 mg Q4HP PRN IV 11/04/24 00:00 11/05/24 06:02 4 MG Ceftriaxone Sodium 50 ml @ 100 mls/hr DAILY@09 IV 11/04/24 09:00 11/05/24 10:58 100 MLS/HR Vancomycin HCl 0 ml @ 0 mls/hr UD IV 11/04/24 04:30 Morphine Sulfate 2 mg Q6HPRN PRN IV 11/04/24 15:15 11/05/24 06:42 2 MG Linezolid 300 ml @ 150 mls/hr Q12HR IV 11/05/24 10:00 UNV Ceftriaxone Sodium 50 ml @ 100 mls/hr DAILY@09 IV 11/05/24 09:00 UNV Dextrose 1,000 ml @ 60 mls/hr [id number] IV 11/05/24 12:00 UNV Dextrose 1,000 ml @ 75 mls/hr [id number] IV 11/05/24 12:00 UNV Examination: GENERAL:Abnormal, SKIN:Abnormal laboratory and microbiology Laboratory Tests 11/05/24 05:13 Test 11/05/24 05:13 Range/Units Serum Glucose 170 H 74-106 mg/dL Microbiology Date/Time Source Procedure Growth Status 11/03/24 19:30 Blood Blood Culture - Preliminary NO GROWTH AFTER 24 HOURS OF INCUBATION. Resulted Problem List/Assessment/Plan Problem List/Assessment/Plan Acute kidney injury prerenal etiology in the setting of volume depletion CKD baseline unspecified unknown Hypernatremia due to free water loss Sepsis secondary to multiple source including sacral ulcer and urinary tract infection Alzheimer's dementia Protein calorie malnutrition Hypotonic fluid IV Replace electrolytes as needed Currently has a Dick monitoring urinary output Avoid hypotension No emergent indication for dialysis at this time as slow improvement and patient has poor baseline not a candidate for outpatient treatment Patient pending swallow study and evaluation per primary medical team in terms of goals of care and nutrition. Plan discussed with: Daughter My Orders My Orders Orders - SIM VAN MD Procedure Category Date Status Time Basic Metabolic Panel LAB 11/06/24 Verified 04:00 Complete Blood Count LAB 11/06/24 Verified 04:00 D5w 5% (Dextrose 5%) PHA 11/05/24 Logged 12:00 SIM VAN MD Nov 05, 2024 12:48
[2024-11-05] MEDS: VANCOMYCIN 1GM/200ML PM 200 ML IV ONE (18:31)
[2024-11-06] VITALS (7 sets, daily range): BP systolic 114–142; BP diastolic 62–109; PULSE 74–93; RESP 14–17; TEMP 97.9–99.6; O2SAT 91–94
--- NOTE | 2024-11-06 07:32 | DVH ---
EXAM: XR Chest, 1 View CLINICAL INDICATION: HTN TECHNIQUE: Frontal view of the chest. COMPARISON: XY CHEST PORTABLE on DOS: 11/03/24 FINDINGS: LUNGS AND PLEURAL SPACES: Mild pulmonary congestion. No consolidation. No pneumothorax. HEART: Unremarkable. No cardiomegaly. MEDIASTINUM: Unremarkable. Normal mediastinal contour. BONES/JOINTS: Unremarkable. No acute fracture. TUBES, LINES AND DEVICES: Left-sided cardiac pacemaker. OTHER FINDINGS: . IMPRESSION: Mild pulmonary congestion.
--- NOTE | 2024-11-06 09:45 | DVHPN2 ---
Progress Note Date Seen: Nov 06, 2024 Medical Necessity Reason Pt with a Central, PICC or Fol: Yes The following are medically ne: Dick Catheter Reason for dick catheter: Strict I&O Subjective Patient reports: Other Review of Systems: Deferred Objective vital signs Vital Sign Date Time Temp Pulse Resp B/P (MAP) Pulse Ox O2 Delivery O2 Flow Rate FiO2 11/06/24 08:00 Room Air* 0 21 11/06/24 05:00 97.9 77 16 114/95 (101) 91 97.9 Total Intake and Output 11/05/24 11/05/24 11/06/24 15:00 23:00 07:00 Intake Total 0 ml 0 ml Output Total 800 ml 550 ml Balance -800 ml -550 ml medications Current Medications Medications Dose Ordered Sig/Roman Route Start Time Stop Time Status Last Admin Dose Admin Nitroglycerin 0.4 mg Q5MINP PRN SL 11/04/24 00:00 Morphine Sulfate 2 mg Q30M PRN IV 11/04/24 00:00 11/05/24 01:03 2 MG Ondansetron HCl 4 mg Q4HP PRN IV 11/04/24 00:00 11/05/24 06:02 4 MG Vancomycin HCl 0 ml @ 0 mls/hr UD IV 11/04/24 04:30 Morphine Sulfate 2 mg Q6HPRN PRN IV 11/04/24 15:15 11/05/24 06:42 2 MG Linezolid 300 ml @ 150 mls/hr Q12HR IV 11/05/24 10:00 Hold Ceftriaxone Sodium 50 ml @ 100 mls/hr DAILY@09 IV 11/05/24 09:00 11/06/24 08:38 100 MLS/HR Dextrose 1,000 ml @ 75 mls/hr [id number] IV 11/05/24 12:00 11/06/24 01:21 75 MLS/HR Examination: GENERAL:Abnormal, CVS:Normal, SKIN:Abnormal, NEURO:Abnormal laboratory and microbiology Laboratory Tests 11/05/24 05:13 Test 11/05/24 05:13 Range/Units Serum Glucose 170 H 74-106 mg/dL Microbiology Date/Time Source Procedure Growth Status 11/03/24 19:30 Blood Blood Culture - Preliminary NO GROWTH AFTER 48 HOURS OF INCUBATION. Resulted Problem List/Assessment/Plan Problem List/Assessment/Plan Acute kidney injury prerenal etiology in the setting of volume depletion CKD baseline unspecified unknown Hypernatremia due to free water loss Sepsis secondary to multiple source including sacral ulcer and urinary tract infection Alzheimer's dementia Protein calorie malnutrition Hypotonic fluid IV D5W Replace electrolytes as needed Currently has a Dick monitoring urinary output Avoid hypotension Megha resolving no indication for dialysis. Continue hypotonic fluid Plan discussed with: Other My Orders My Orders Orders - SIM VAN MD Procedure Category Date Status Time Basic Metabolic Panel LAB 11/06/24 Logged 04:00 Complete Blood Count LAB 11/06/24 Logged 04:00 SIM VAN MD Nov 06, 2024 09:45
--- NOTE | 2024-11-06 11:32 | DVHPN2 ---
Progress Note Date Seen: Nov 06, 2024 Medical Necessity Reason Pt with a Central, PICC or Fol: Yes The following are medically ne: Dick Catheter Reason for dick catheter: Strict I&O Subjective Patient reports: No new complaints Review of Systems: HEENT:Normal, CVS:Normal, RESPIRATORY:Normal, GI:Normal, :Normal, MSK:Normal, NEURO:Normal Objective vital signs Vital Sign Date Time Temp Pulse Resp B/P (MAP) Pulse Ox O2 Delivery O2 Flow Rate FiO2 11/06/24 11:22 77 18 114/95 11/06/24 08:00 Room Air* 0 21 11/06/24 05:00 97.9 91 97.9 Total Intake and Output 11/05/24 11/05/24 11/06/24 15:00 23:00 07:00 Intake Total 0 ml 0 ml Output Total 800 ml 550 ml Balance -800 ml -550 ml medications Current Medications Medications Dose Ordered Sig/Roman Route Start Time Stop Time Status Last Admin Dose Admin Nitroglycerin 0.4 mg Q5MINP PRN SL 11/04/24 00:00 Morphine Sulfate 2 mg Q30M PRN IV 11/04/24 00:00 11/05/24 01:03 2 MG Ondansetron HCl 4 mg Q4HP PRN IV 11/04/24 00:00 11/05/24 06:02 4 MG Vancomycin HCl 0 ml @ 0 mls/hr UD IV 11/04/24 04:30 Morphine Sulfate 2 mg Q6HPRN PRN IV 11/04/24 15:15 11/06/24 11:22 2 MG Linezolid 300 ml @ 150 mls/hr Q12HR IV 11/05/24 10:00 Hold Ceftriaxone Sodium 50 ml @ 100 mls/hr DAILY@09 IV 11/05/24 09:00 11/06/24 08:38 100 MLS/HR Dextrose 1,000 ml @ 75 mls/hr [id number] IV 11/05/24 12:00 11/06/24 01:21 75 MLS/HR Examination: GENERAL:Normal, HEENT:Normal, NECK:Normal, LUNGS:Normal, CVS:Normal, ABDOMEN:Normal, MSK:Normal, SKIN:Normal, NEURO:Normal, NEURO:Abnormal (encephalopathy), :Normal laboratory and microbiology Laboratory Tests 11/05/24 05:13 Test 11/05/24 05:13 Range/Units Serum Glucose 170 H 74-106 mg/dL Microbiology Date/Time Source Procedure Growth Status 11/03/24 19:30 Blood Blood Culture - Preliminary NO GROWTH AFTER 48 HOURS OF INCUBATION. Resulted Problem List/Assessment/Plan Problem List/Assessment/Plan #1 septic shock with uti: iv antibiotics, ivf #2 hypernatremia: ivf #3 encephalopathy: metabolic #4 acute renal failure ?vasomotor nephropathy #5 dementia #6 s/p pacer advance care planning- full code- time spent 19mins Plan discussed with: Patient, Other (daugher in law) My Orders My Orders Orders - GENNY HERCULES MD Procedure Category Date Status Time * Swallow Request ST 11/05/24 Transmitted 11:49 D5w 5% (Dextrose 5%) PHA 11/05/24 In Process 12:00 Urine Bacterial VÍCTOR 11/05/24 Logged Culture 11:49 Vitamin B12 LAB 11/06/24 Logged 06:00 Thyroid Stimulating LAB 11/06/24 Logged Hormone 05:00 Chest Portable XY 11/06/24 Resulted 06:00 Pureed DIET 11/05/24 Transmitted Dinner Apply Barrier Cream NATHANIEL 11/05/24 In Process 15:15 * Dietary Consult CONS 11/05/24 Transmitted 17:51 Date of Service: Nov 06, 2024 Billing Provider: GENNY HERCULES MD Common Visit Codes: [id number] INP/OBS CARE(HIGH) GENNY HERCULES MD Nov 06, 2024 11:32
[2024-11-06 15:07] LABS: Protein, Urine 81.6 mg/dL (1-14)
[2024-11-06 15:10] LABS: Creatinine, Urine 58.4 mg/dL (30.0-125.0)
[2024-11-06 16:22] LABS: Potassium 3.5 mmol/L (3.5-5.1)
[2024-11-06 16:23] LABS: Anion Gap 12 (5-15); Calcium 9.1 mg/dL (8.7-10.4); Carbon Dioxide 24 mmol/L (20-31)
[2024-11-06 16:26] LABS: Chloride 122 mmol/L (98-107); Sodium 158 mmol/L (136-145)
[2024-11-06 16:28] LABS: BUN/Creatinine Ratio 54.5 (10.0-20.0)
[2024-11-06 16:29] LABS: Blood Urea Nitrogen 60 mg/dL (9-23); Glucose 162 mg/dL (74-106)
[2024-11-06 19:28] LABS: Basophils # (auto) 0 10 ^3/uL (0-0.2); Eosinophils # (auto) 0 10 ^3/uL (0-0.8); Eosinophils % (auto) 0.2 % (0.0-7.0); Hemoglobin 11.7 g/dL (12.2-16.2); Lymphocytes # (auto) 1.4 10 ^3/uL (0.4-5.4); Nucleated Red Blood Cells % 0.1 %; Red Cell Distribution Width 15.4 % (11.8-14.3)
[2024-11-06 19:29] LABS: Basophils % (auto) 0.1 % (0.0-2.0); Hematocrit 37.8 % (36.0-46.0); Lymphocytes % (auto) 9.5 % (10.0-50.0); Mean Corpuscular Hemoglobin 22.3 pg (28.0-32.0); Mean Corpuscular Volume 71.9 fL (80.0-100.0); Monocytes # (auto) 0.7 10 ^3/uL (0-1.3); Monocytes % (auto) 4.5 % (0.0-12.0); Neutrophils # (auto) 12.9 10 ^3/uL (1.6-8.6); Neutrophils % (auto) 85.7 % (37.0-80.0); Platelet Count (auto) 278 10^3/uL (140-450); Red Blood Cells 5.26 10^6/uL (4.0-5.20)
[2024-11-06] MEDS: Ensure HIGH Protein Chocolate 8oz Bottle PO SCH (20:00)
[2024-11-07] VITALS (7 sets, daily range): BP systolic 109–128; BP diastolic 64–82; PULSE 16–99; RESP 14–18; TEMP 97.9–98.7; O2SAT 91–99
[2024-11-07] MEDS: VANCOMYCIN 1GM/200ML PM 200 ML IV ONE (03:47)
--- NOTE | 2024-11-07 11:07 | DVHPN2 ---
Progress Note Date Seen: Nov 07, 2024 Medical Necessity Reason Pt with a Central, PICC or Fol: Yes The following are medically ne: Dick Catheter Reason for dick catheter: Strict I&O Subjective Patient reports: No new complaints Review of Systems: HEENT:Normal, CVS:Normal, RESPIRATORY:Normal, GI:Normal, :Normal, MSK:Normal, NEURO:Normal Objective vital signs Vital Sign Date Time Temp Pulse Resp B/P (MAP) Pulse Ox O2 Delivery O2 Flow Rate FiO2 11/07/24 08:48 98.6 91 16 121/76 (91) 92 98.6 11/07/24 08:07 Room Air* 0 21 Total Intake and Output 11/06/24 11/06/24 11/07/24 15:00 23:00 07:00 Intake Total 520 ml 450 ml Output Total 275 ml 100 ml Balance 245 ml 350 ml medications Current Medications Medications Dose Ordered Sig/Roman Route Start Time Stop Time Status Last Admin Dose Admin Nitroglycerin 0.4 mg Q5MINP PRN SL 11/04/24 00:00 Morphine Sulfate 2 mg Q30M PRN IV 11/04/24 00:00 11/05/24 01:03 2 MG Ondansetron HCl 4 mg Q4HP PRN IV 11/04/24 00:00 11/05/24 06:02 4 MG Vancomycin HCl 0 ml @ 0 mls/hr UD IV 11/04/24 04:30 Morphine Sulfate 2 mg Q6HPRN PRN IV 11/04/24 15:15 11/06/24 11:22 2 MG Linezolid 300 ml @ 150 mls/hr Q12HR IV 11/05/24 10:00 Hold Ceftriaxone Sodium 50 ml @ 100 mls/hr DAILY@09 IV 11/05/24 09:00 11/07/24 08:37 100 MLS/HR Dextrose 1,000 ml @ 75 mls/hr [id number] IV 11/05/24 12:00 11/06/24 01:21 75 MLS/HR Enteral Nutritional Formula 240 ml BIDWM PO 11/06/24 18:00 11/07/24 08:00 240 ML Examination: GENERAL:Normal, HEENT:Normal, NECK:Normal, LUNGS:Normal, CVS:Normal, ABDOMEN:Normal, MSK:Normal, SKIN:Normal, NEURO:Normal, :Normal laboratory and microbiology Laboratory Tests 11/06/24 19:03 11/06/24 15:28 Test 11/06/24 15:28 Range/Units Serum Glucose 162 H 74-106 mg/dL Microbiology Date/Time Source Procedure Growth Status 11/05/24 14:10 Blood Blood Culture - Preliminary NO GROWTH AFTER 24 HOURS OF INCUBATION. Resulted Problem List/Assessment/Plan Problem List/Assessment/Plan #1 septic shock with uti: iv antibiotics, ivf #2 hypernatremia: ivf #3 encephalopathy: metabolic, repeat bmp #4 acute renal failure ?vasomotor nephropathy #5 dementia #6 s/p pacer advance care planning- full code- time spent 19mins Plan discussed with: Patient My Orders My Orders Orders - GENNY HERCULES MD Procedure Category Date Status Time Nutritional PHA 11/06/24 In Process Supplements (Ensure 18:00 Pt Request For Service PT 11/06/24 Logged 11:26 Basic Metabolic Panel LAB 11/07/24 Logged 06:00 Complete Blood Count LAB 11/07/24 Logged 06:00 Notify Provider NOTICE 11/06/24 Transmitted Malnutrition 12:02 Nutritional NOURISH 11/06/24 Transmitted Supplements 12:02 Increase Calorie NOURISH 11/06/24 Transmitted Intake 12:02 * Wound Consult CONS 11/06/24 Transmitted D5w 5% PHA 11/07/24 Verified 11:15 Basic Metabolic Panel LAB 11/08/24 Verified 06:00 Complete Blood Count LAB 11/08/24 Verified 06:00 Dietary Evaluation Review Recommendations by RD: Increase Calorie Intake, Protein Supplementation, PPN/TPN Comments: 1) Consider PN if access is available 2) Glucerna 240ml QID 3) Yash 1 pk daily, MVI w/ minerals 1 tab daily, VitC 500mg BID, Zince sulfate 220mg daily x 10 days 4) If a NGT is in place, consider Glucerna 1.2Cal @ 60ml/hr. Start @ 10ml/hr, increase 10ml/hr Q4H until goal is reached. water flush 100ml Q4H. 5) Continue current plan of care Expected Outcomes/Goals: wound healing to improve adequate energy & protein intake fu 2-3 days Food and Nutrition Intake (Sev: <50% est energy req 5days Body Fat Depletion (Severe): Mod to Severe Depletion Muscle Mass (Severe): Mod to Severe Depletion Protein Calorie Malnutrition: Severe Is there a minimum of two crit: Yes Date of Service: Nov 07, 2024 Billing Provider: GENNY HERCULES MD Common Visit Codes: [id number] INP/OBS CARE(HIGH) GENNY HERCULES MD Nov 07, 2024 11:07
[2024-11-07] MEDS: D5W 5% 1,000 ML IV SCH (11:15)
[2024-11-07 13:45] LABS: Basophils # (auto) 0.1 10 ^3/uL (0-0.2); Basophils % (auto) 0.7 % (0.0-2.0); Eosinophils # (auto) 0.1 10 ^3/uL (0-0.8); Eosinophils % (auto) 0.4 % (0.0-7.0); Hematocrit 37.9 % (36.0-46.0); Hemoglobin 12.1 g/dL (12.2-16.2); Lymphocytes # (auto) 1.4 10 ^3/uL (0.4-5.4); Lymphocytes % (auto) 10.9 % (10.0-50.0); Mean Corpuscular Hemoglobin 22.2 pg (28.0-32.0); Mean Corpuscular Hgb Conc. 31.9 g/dL (32.0-36.0); Mean Corpuscular Volume 69.5 fL (80.0-100.0); Monocytes # (auto) 0.4 10 ^3/uL (0-1.3); Monocytes % (auto) 3.1 % (0.0-12.0); Neutrophils # (auto) 11.2 10 ^3/uL (1.6-8.6); Neutrophils % (auto) 84.9 % (37.0-80.0); Nucleated Red Blood Cells % 0.1 %; Platelet Count (auto) 283 10^3/uL (140-450); Red Blood Cells 5.45 10^6/uL (4.0-5.20); Red Cell Distribution Width 14.9 % (11.8-14.3); White Blood Cell 13.2 10^3/uL (4.4-10.8)
[2024-11-07 13:55] LABS: Anion Gap 11 (5-15); Carbon Dioxide 24 mmol/L (20-31); Chloride 120 mmol/L (98-107); Potassium 3.2 mmol/L (3.5-5.1); Sodium 155 mmol/L (136-145)
[2024-11-07 13:56] LABS: Calcium 8.7 mg/dL (8.7-10.4)
[2024-11-07 14:00] LABS: BUN/Creatinine Ratio 55.7 (10.0-20.0)
[2024-11-07 14:02] LABS: Blood Urea Nitrogen 44 mg/dL (9-23); Glucose 188 mg/dL (74-106)
--- NOTE | 2024-11-07 16:31 | DVHPN2 ---
Progress Note Date Seen: Nov 07, 2024 Medical Necessity Reason Pt with a Central, PICC or Fol: Yes The following are medically ne: Dick Catheter Reason for dick catheter: Strict I&O Subjective Review of Systems: Deferred Objective vital signs Vital Sign Date Time Temp Pulse Resp B/P (MAP) Pulse Ox O2 Delivery O2 Flow Rate FiO2 11/07/24 13:30 97.9 58 16 113/64 (80) 91 97.9 11/07/24 08:07 Room Air* 0 21 Total Intake and Output 11/06/24 11/06/24 11/07/24 15:00 23:00 07:00 Intake Total 520 ml 450 ml Output Total 275 ml 100 ml Balance 245 ml 350 ml medications Current Medications Medications Dose Ordered Sig/Roman Route Start Time Stop Time Status Last Admin Dose Admin Nitroglycerin 0.4 mg Q5MINP PRN SL 11/04/24 00:00 Morphine Sulfate 2 mg Q30M PRN IV 11/04/24 00:00 11/05/24 01:03 2 MG Ondansetron HCl 4 mg Q4HP PRN IV 11/04/24 00:00 11/05/24 06:02 4 MG Vancomycin HCl 0 ml @ 0 mls/hr UD IV 11/04/24 04:30 Morphine Sulfate 2 mg Q6HPRN PRN IV 11/04/24 15:15 11/06/24 11:22 2 MG Ceftriaxone Sodium 50 ml @ 100 mls/hr DAILY@09 IV 11/05/24 09:00 11/07/24 08:37 100 MLS/HR Enteral Nutritional Formula 240 ml BIDWM PO 11/06/24 18:00 11/07/24 08:00 240 ML Dextrose 1,000 ml @ 75 mls/hr [id number] IV 11/07/24 11:15 Vancomycin HCl 1000 mg/Sodium Chloride 250 ml @ 166.667 mls/hr Q24H IV 11/08/24 05:00 Examination: GENERAL:Abnormal, CVS:Normal, SKIN:Abnormal laboratory and microbiology Laboratory Tests 11/07/24 13:04 Test 11/07/24 13:04 Range/Units Serum Glucose 188 H 74-106 mg/dL Microbiology Date/Time Source Procedure Growth Status 11/06/24 11:45 Urine - [place] Urine Culture - Preliminary Resulted 11/05/24 14:10 Blood Blood Culture - Preliminary NO GROWTH AFTER 48 HOURS OF INCUBATION. Resulted Problem List/Assessment/Plan Problem List/Assessment/Plan Acute kidney injury prerenal etiology in the setting of volume depletion CKD baseline unspecified unknown Hypernatremia due to free water loss Sepsis secondary to multiple source including sacral ulcer and urinary tract infection Alzheimer's dementia Protein calorie malnutrition hypokalemia Hypotonic fluid IV D5W Replace electrolytes as needed Currently has a Dick monitoring urinary output Avoid hypotension Megha resolving no indication for dialysis. Continue hypotonic fluid no new recs from renal will sign off Plan discussed with: Patient Dietary Evaluation Review Recommendations by RD: Increase Calorie Intake, Protein Supplementation, PPN/TPN Comments: 1) Consider PN if access is available 2) Glucerna 240ml QID 3) Yash 1 pk daily, MVI w/ minerals 1 tab daily, VitC 500mg BID, Zince sulfate 220mg daily x 10 days 4) If a NGT is in place, consider Glucerna 1.2Cal @ 60ml/hr. Start @ 10ml/hr, increase 10ml/hr Q4H until goal is reached. water flush 100ml Q4H. 5) Continue current plan of care Expected Outcomes/Goals: wound healing to improve adequate energy & protein intake fu 2-3 days Food and Nutrition Intake (Sev: <50% est energy req 5days Body Fat Depletion (Severe): Mod to Severe Depletion Muscle Mass (Severe): Mod to Severe Depletion Protein Calorie Malnutrition: Severe Is there a minimum of two crit: Yes SIM VAN MD Nov 07, 2024 16:31
[2024-11-07] MEDS: POTASSIUM CHL 20MEQ/50ML 0 ML IV ONE (21:39)
[2024-11-07] MEDS: POTASSIUM CHLORIDE 20 MEQ, LIDOCAINE 1% (LOCAL ANESTH.) 2 ML in SODIUM CHL 0.9% 100 ML IV ONE (22:31)
[2024-11-08] VITALS (7 sets, daily range): BP systolic 130–160; BP diastolic 72–97; PULSE 61–91; RESP 16–20; TEMP 98.2–98.4; O2SAT 96–99
[2024-11-08] MEDS ORDERED: VANCOMYCIN 1,000 MG in SODIUM CHL 0.9% 250 ML IV SCH (05:00)
[2024-11-08] MEDS: VANCOMYCIN 1GM/200ML PM 0 ML IV ONE (05:18)
[2024-11-08 09:42] LABS: Eosinophils # (auto) 0.1 10 ^3/uL (0-0.8); Eosinophils % (auto) 1.1 % (0.0-7.0); Lymphocytes # (auto) 2.1 10 ^3/uL (0.4-5.4); Mean Corpuscular Hgb Conc. 31.2 g/dL (32.0-36.0); Monocytes # (auto) 0.5 10 ^3/uL (0-1.3); Nucleated Red Blood Cells % 0.1 %; White Blood Cell 12.1 10^3/uL (4.4-10.8)
[2024-11-08 09:43] LABS: Basophils # (auto) 0.1 10 ^3/uL (0-0.2); Basophils % (auto) 0.8 % (0.0-2.0); Hematocrit 40.1 % (36.0-46.0); Hemoglobin 12.5 g/dL (12.2-16.2); Lymphocytes % (auto) 16.9 % (10.0-50.0); Mean Corpuscular Hemoglobin 22.2 pg (28.0-32.0); Mean Corpuscular Volume 71.3 fL (80.0-100.0); Monocytes % (auto) 4.4 % (0.0-12.0); Neutrophils # (auto) 9.3 10 ^3/uL (1.6-8.6); Neutrophils % (auto) 76.8 % (37.0-80.0); Platelet Count (auto) 285 10^3/uL (140-450); Red Blood Cells 5.63 10^6/uL (4.0-5.20); Red Cell Distribution Width 15.2 % (11.8-14.3)
[2024-11-08 10:03] LABS: Anion Gap 8 (5-15); Calcium 8.8 mg/dL (8.7-10.4); Carbon Dioxide 25 mmol/L (20-31)
[2024-11-08 10:10] LABS: Blood Urea Nitrogen 27 mg/dL (9-23); Chloride 116 mmol/L (98-107); Glucose 131 mg/dL (74-106); Potassium 3.4 mmol/L (3.5-5.1); Sodium 149 mmol/L (136-145)
--- NOTE | 2024-11-08 14:12 | DVHPN2 ---
Progress Note Date Seen: Nov 08, 2024 Medical Necessity Reason Pt with a Central, PICC or Fol: Yes The following are medically ne: Dick Catheter Reason for dick catheter: Strict I&O Subjective Patient reports: No new complaints Review of Systems: HEENT:Normal, CVS:Normal, RESPIRATORY:Normal, GI:Normal, :Normal, MSK:Normal, NEURO:Normal Objective vital signs Vital Sign Date Time Temp Pulse Resp B/P (MAP) Pulse Ox O2 Delivery O2 Flow Rate FiO2 11/08/24 12:56 81 20 142/73 (96) 97 11/08/24 09:21 98.4 98.4 11/08/24 08:00 Room Air* 0 21 Total Intake and Output 11/07/24 11/07/24 11/08/24 15:00 23:00 07:00 Intake Total 957 ml 1092 ml Output Total 450 ml 400 ml Balance 507 ml 692 ml medications Current Medications Medications Dose Ordered Sig/Roman Route Start Time Stop Time Status Last Admin Dose Admin Nitroglycerin 0.4 mg Q5MINP PRN SL 11/04/24 00:00 Morphine Sulfate 2 mg Q30M PRN IV 11/04/24 00:00 11/05/24 01:03 2 MG Ondansetron HCl 4 mg Q4HP PRN IV 11/04/24 00:00 11/05/24 06:02 4 MG Vancomycin HCl 0 ml @ 0 mls/hr UD IV 11/04/24 04:30 Morphine Sulfate 2 mg Q6HPRN PRN IV 11/04/24 15:15 11/06/24 11:22 2 MG Ceftriaxone Sodium 50 ml @ 100 mls/hr DAILY@09 IV 11/05/24 09:00 11/08/24 09:37 100 MLS/HR Enteral Nutritional Formula 240 ml BIDWM PO 11/06/24 18:00 11/08/24 08:00 240 ML Dextrose 1,000 ml @ 75 mls/hr [id number] IV 11/07/24 11:15 11/07/24 22:36 75 MLS/HR Vancomycin HCl 1000 mg/Sodium Chloride 250 ml @ 166.667 mls/hr Q24H IV 11/08/24 05:00 Examination: GENERAL:Normal, HEENT:Normal, NECK:Normal, LUNGS:Normal, CVS:Normal, ABDOMEN:Normal, MSK:Normal, SKIN:Normal, NEURO:Normal, :Normal laboratory and microbiology Laboratory Tests 11/08/24 09:20 Test 11/08/24 09:20 Range/Units Serum Glucose 131 H 74-106 mg/dL Microbiology Date/Time Source Procedure Growth Status 11/06/24 11:45 Urine - [place] Urine Culture - Preliminary Resulted 11/05/24 14:10 Blood Blood Culture - Preliminary NO GROWTH AFTER 48 HOURS OF INCUBATION. Resulted Problem List/Assessment/Plan Problem List/Assessment/Plan #1 septic shock with uti: iv antibiotics, IVF #2 hypernatremia: ivf #3 encephalopathy: metabolic, repeat bmp #4 acute renal failure ?vasomotor nephropathy #5 dementia #6 s/p pacer advance care planning- full code- time spent 19mins Plan discussed with: Patient, Son My Orders My Orders Orders - GENNY HERCULES MD Procedure Category Date Status Time Insert Midline ORDERS 11/07/24 Transmitted 17:21 D5w 5% PHA 11/08/24 Verified 14:15 Morphine Sulfate PHA 11/08/24 Verified Injection 14:15 Potassium Chl Robbie PHA 11/08/24 Verified KCL 14:15 * Cnc Applications Engineer CONS 11/08/24 Verified Consult Basic Metabolic Panel LAB 11/09/24 Verified 06:00 Dietary Evaluation Review Recommendations by RD: Increase Calorie Intake, Protein Supplementation, PPN/TPN Comments: 1) Consider PN if access is available 2) Glucerna 240ml QID 3) Yash 1 pk daily, MVI w/ minerals 1 tab daily, VitC 500mg BID, Zince sulfate 220mg daily x 10 days 4) If a NGT is in place, consider Glucerna 1.2Cal @ 60ml/hr. Start @ 10ml/hr, increase 10ml/hr Q4H until goal is reached. water flush 100ml Q4H. 5) Continue current plan of care Expected Outcomes/Goals: wound healing to improve adequate energy & protein intake fu 2-3 days Food and Nutrition Intake (Sev: <50% est energy req 5days Body Fat Depletion (Severe): Mod to Severe Depletion Muscle Mass (Severe): Mod to Severe Depletion Protein Calorie Malnutrition: Severe Is there a minimum of two crit: Yes Date of Service: Nov 08, 2024 Billing Provider: GENNY HERCULES MD Common Visit Codes: [id number] INP/OBS CARE(HIGH) GENNY HERCULES MD Nov 08, 2024 14:11
[2024-11-08] MEDS: POTASSIUM CHLORIDE 20 MEQ, LIDOCAINE 1% (LOCAL ANESTH.) 2 ML in SODIUM CHL 0.9% 100 ML IV ONE (15:05)
[2024-11-08] MEDS: D5W 5% 1,000 ML IV SCH (15:18)
[2024-11-09] MEDS: MORPHINE SULFATE INJ 2 MG/ml SYRG IV PRN (00:35)
[2024-11-09 01:00] VITALS: BP 157/83; PULSE 68; RESP 17; TEMP 98.9; O2SAT 96
[2024-11-09 05:00] VITALS: BP 134/93; PULSE 57; RESP 17; TEMP 98.4; O2SAT 96
[2024-11-09 08:00] VITALS: PULSE 75
[2024-11-09 12:09] LABS: Anion Gap 8 (5-15); Carbon Dioxide 24 mmol/L (20-31); Sodium 142 mmol/L (136-145)
[2024-11-09 12:11] LABS: Calcium 8.4 mg/dL (8.7-10.4); Chloride 110 mmol/L (98-107); Potassium 3.4 mmol/L (3.5-5.1)
[2024-11-09 12:15] LABS: BUN/Creatinine Ratio 32.1 (10.0-20.0); Blood Urea Nitrogen 17 mg/dL (9-23)
[2024-11-09 12:18] LABS: Glucose 113 mg/dL (74-106)
--- NOTE | 2024-11-09 13:14 | DVHPN2 ---
Subjective Denies any symptoms at this time. Reviewed: Care Plan, H&P, Labs, Medications, Previous Orders, Radiology Changes from previous H/P or p: No Changes General: Per HPI Objective Vitals Vital Signs Date Time Temp Pulse Resp B/P (MAP) Pulse Ox O2 Delivery O2 Flow Rate FiO2 11/09/24 08:00 Room Air* 0 21 11/09/24 08:00 75 11/09/24 05:00 98.4 17 134/93 (107) 96 98.4 Intake/Output Intake and Output 11/09/24 07:00 Intake Total 1307 ml Output Total 925 ml Balance 382 ml Intake Oral 1257 ml IV Total 50 ml Output Urine Total 925 ml # Bowel Movements 5 General Appearance: Alert, Oriented X3, Cooperative, No acute distress HEENT: Atraumatic, PERRLA Lungs: Clear to auscultation, Normal air movement Cardiovascular: Normal S1, Normal S2 Skin: Wounds (See nurse notes and pictures) Psych/Mental Status: Mental status NL, Mood NL Medications Current Medications Medications Dose Ordered Sig/Roman Route Start Time Stop Time Status Last Admin Dose Admin Nitroglycerin 0.4 mg Q5MINP PRN SL 11/04/24 00:00 Morphine Sulfate 2 mg Q30M PRN IV 11/04/24 00:00 11/05/24 01:03 2 MG Ondansetron HCl 4 mg Q4HP PRN IV 11/04/24 00:00 11/05/24 06:02 4 MG Ceftriaxone Sodium 50 ml @ 100 mls/hr DAILY@09 IV 11/05/24 09:00 11/09/24 08:23 100 MLS/HR Enteral Nutritional Formula 240 ml BIDWM PO 11/06/24 18:00 11/09/24 08:23 240 ML Dextrose 1,000 ml @ 50 mls/hr Q20H IV 11/08/24 14:15 11/09/24 11:30 50 MLS/HR Morphine Sulfate 1 mg Q6HPRN PRN IV 11/08/24 14:15 11/09/24 00:35 1 MG Laboratory Results Laboratory Tests 11/08/24 09:20 11/09/24 10:45 Chemistry Test 11/09/24 10:45 Calcium Level 8.4 mg/dL (8.7-10.4) L Urinalysis Test 11/03/24 18:00 11/06/24 11:45 Urine Color Yellow (Yellow) Urine Clarity Turbid (Clear) H Urine pH 5.0 (5.0-9.0) Urine Specific [place] 1.021 (1.001-1.035) Urine Protein Trace (Negative) H Urine Ketones Negative (Negative) Urine Blood 2+ /uL (Negative) H Urine Nitrite Negative (Negative) Urine Bilirubin Negative (Negative) Urine Urobilinogen 3 mg/dL (Negative) H Urine Leukocyte Esterase 3+ /uL (Negative) Urine RBC 235 /hpf (0 - 4) Urine Microscopic WBC 59 /HPF (0-5) H Urine Squamous Epithelial Cells Few /hpf (<5) Urine Bacteria Few /hpf (None Seen) H Urine Hyaline Casts Many /lpf (0 - 2) Urine Mucus Few (None Seen) Urine Glucose Normal mg/dL (Normal) Urine Creatinine 58.40 mg/dL (30.0-125.0) Urine Sodium 24 mmol/L (40-220) L Urine Total Protein 81.6 mg/dL (1-14) H Microbiology Microbiology Date/Time Source Procedure Growth Status 11/06/24 11:45 Urine - [place] Urine Culture - Preliminary Resulted 11/05/24 14:10 Blood Blood Culture - Preliminary NO GROWTH AFTER 72 HOURS OF INCUBATION. Resulted Labs and/or images reviewed: Labs reviewed by me, Image(s) reviewed by me Assessment/Plan Assessment/Plan Impression: -septic shock -complicated cystitis -hypernatremia -metabolic encephalopathy -acute renal failure, acute kidney injury with vasomotor nephropathy -dementia -history of pacemaker implant Plan: -patient given adequate IV hydration with improvement with renal function as well as sodium now being 140 -potassium replacement -continue antibiotic therapy per hospice provider -HI planning for today back with hospice services. Total time spent with patient discussing and formulating plan of care: 35 minutes. This medical document was created using an electronic medical record system with [employer] dictation system. Although this document has been carefully reviewed, there may still be some phonetic and typographical errors. These areas are purely typographical due to imperfections of the software programs, and do not reflect any compromise in the patient's medical care. Plan discussed with: Patient, Other (RN) My Orders Orders - BERTRAND TALBOT SCRAP CRANE OPERATOR Procedure Category Date Status Time Potassium Effervesent PHA 11/09/24 Logged Tab (Umm-Wilner/Ef) 13:15 Date of Service: Nov 09, 2024 Billing Provider: BERTRAND TALBOT NP Common Visit Codes: [id number] INP/OBS CARE(HIGH) BERTRAND TALBOT NP Nov 09, 2024 13:14
[2024-11-09] MEDS: POTASSIUM EFFERVESENT TAB 25 MEQ PO ONE (13:38)
== END 2024-11-09 16:11 | disposition hospice, home (50) | DRG 871 ==
LOC: EDBD 16:00 → ER 16:00 → OVERFLOW 23:56 → TELE-WESTW 11-05 09:11
PROVIDERS: ADMIT Nurse Practitioner Acute Care; ATTEND Nurse Practitioner Acute Care
PROC: 05JY3ZZ Inspection of Upper Vein, Percutaneous Approach (ICD-10-PCS; principal; 2024-11-03)
PROC: 06JY3ZZ Inspection of Lower Vein, Percutaneous Approach (ICD-10-PCS; 2024-11-03)
DX: A41.9 Sepsis, unspecified organism (principal); G92.8 Other toxic encephalopathy; N17.0 Acute kidney failure with tubular necrosis; R65.21 Severe sepsis with septic shock; E87.0 Hyperosmolality and hypernatremia; E46 Unspecified protein-calorie malnutrition; E78.00 Pure hypercholesterolemia, unspecified; Z66 Do not resuscitate; Z51.5 Encounter for palliative care; G30.9 Alzheimer's disease, unspecified; I12.9 Hypertensive chronic kidney disease with stage 1 through stage 4 chronic kidney disease, or unspecified chronic kidney disease; N18.32 Chronic kidney disease, stage 3b; N30.90 Cystitis, unspecified without hematuria; E86.0 Dehydration; L98.419 Non-pressure chronic ulcer of buttock with unspecified severity; E86.9 Volume depletion, unspecified; E87.6 Hypokalemia; F02.80 Dementia in other diseases classified elsewhere, unspecified severity, without behavioral disturbance, psychotic disturbance, mood disturbance, and anxiety; Z74.01 Bed confinement status; Z95.0 Presence of cardiac pacemaker; Z68.20 Body mass index [BMI] 20.0-20.9, adult
CPT/HCPCS: 36415; 71045; 73502; 73562; 73590; 80048; 80053; 80202; 81001; 82550; 82570; 82607; 82962; 83605; 84156; 84295; 84300; 84443; 84484; 85025; 87040; 87086; 92610; 93005; 96365; 96366; 97163; 99291; G0378; J2003; J2405; J2543

== ENCOUNTER 2025-03-04 19:19 | Inpatient (IN) | payer OTHER, MEDICAID ==
[~2025-03-04] VITALS: Ht 162.6 cm; Wt 69.5 kg
--- NOTE | 2025-03-04 19:30 | ED.PDOC ---
History of Present Illness HPI Comments 84 year old female presents to the ED via EMS with a chief complaint of generalized weakness. Per EMS, patient is coming from home, is bed bound, unable to walk but is usually able to move extremities. For the past few days, patient has been weak, not able to move extremities, is also experiencing dysphagia. EMS noticed an ulcer on coccyx region measuring approximately 7 cm, she has been on hospice care twice. She is a poor historian, does not answer questions. PMHx Dementia, HTN, HLD. No other symptoms or modifying factors present at this time. 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 History: Unknown Family History Family History: Unknown Social History Smoker: Non-Smoker Alcohol: Denies ETOH Use Drugs: Denies Drug Use Lives In: Home Constitutional: reports: weakness; denies: chills, diaphoresis, fatigue, fever, malaise, sweats, others EENTM: denies: blurred vision, double vision, ear bleeding, ear discharge, ear drainage, ear pain, ear ringing, eye pain, eye redness, hearing loss, mouth pain, mouth swelling, nasal discharge, nose bleeding, nose congestion, nose pain, photophobia, tearing, throat pain, throat swelling, voice changes, others Respiratory: denies: cough, hemoptysis, orthopnea, SOB at rest, shortness of breath, SOB with excertion, stridor, wheezing, others Cardiovascular: denies: chest pain, dizzy spells, diaphoresis, Dyspnea on exertion, edema, irregular heart beat, left arm pain, lightheadedness, palpitations, PND, syncope, others Gastrointestinal: reports: dysphagia; denies: abdomen distended, abdominal pain, blood streaked bowels, constipated, diarrhea, difficulty swallowing, hematemesis, melena, nausea, poor appetite, poor fluid intake, rectal bleeding, rectal pain, vomiting, others Genitourinary: denies: abnormal vagina bleeding, burning, dyspareunia, dysuria, flank pain, frequency, hematuria, incontinence, pain, , vagina discharge, urgency, others Neurological: reports: weakness; denies: dizziness, fainting, headache, left sided numbness, left sided weakness, numbness, paresthesia, pre-existing deficit, right sided numbness, right sided weakness, seizure, speech problems, tingling, tremors, others Musculoskeletal: denies: back pain, gout, joint pain, joint swelling, muscle pain, muscle stiffness, neck pain, others Integumetry: denies: bruises, change in color, change in hair/nails, dryness, laceration, lesions, lumps, rash, wounds, others Allergic/Immunocompromised: denies: Difficulty Healing, Frequent Infections, Hives, Itching, others Hematologic/Lymphatic: denies: anemia, blood clots, easy bleeding, easy bruising, swollen glands, others Endocrine: denies: excessive hunger, excessive sweating, excessive thirst, excessive urination, flushing, intolerance to cold, intolerance to heat, unexplained weight gain, unexplained weight loss, others Psychiatric: denies: anxiety, bipolar disorder, depression, hopeless, panic disorder, schizophrenia, sleepless, suicidal, others All Other Systems: Reviewed and Negative Physical Exam General Appearance: Normal HEENT: Normal ENT Inspection, Pharynx Normal, TMs Normal Neck: Full Range of Motion, Non-Tender, Normal, Normal Inspection Respiratory: Chest Non-Tender, Lungs Clear, No Accessory Muscle Use, No Respir atory Distress, Normal Breath Sounds Cardiovascular: No Edema, No JVD, No Murmur, No Gallop, Normal Peripheral Pulses, Regular Rate/Rhythm Breast Exam: Deferred Gastrointestinal: No Organomegaly, Non Tender, No Pulsatile Mass, Normal Bowel Sounds, Soft Genitalia: Deferred Pelvic: Deferred Rectal: Deferred Extremities: No calf tenderness, Non-tender, No pedal edema Musculoskeletal : Location: NOT DONE Apperance: Normal Neurologic: NOT DONE Cerebellar Function: Normal Reflexes: Normal Skin: Dry, Wounds (To wounds noted on the coccyx with, largest wound measures 7 x 7 cm wide, definitely measurable, appears to be to the bone. Foul odor. Sloughing) Lymphatic: No Adenopathy Was a procedure done? Was a procedure done?: No Differential Dx Considerations may include: Sepsis, hyponatremia, hyperkalemia, altered mental status, dementia, Alzheimer's, chronic wound X-Ray, Labs, Meds, VS Vital Signs Date Time Temp Pulse Resp B/P (MAP) Pulse Ox O2 Delivery O2 Flow Rate FiO2 03/04/25 21:14 97.3 102 28 99 97.3 03/04/25 19:30 97.3 60 16 133/102 100 97.3 03/04/25 19:21 115 Lab Test 03/04/25 20:02 Range/Units White Blood Count 8.2 4.4-10.8 10^3/uL Red Blood Count 6.69 H 4.0-5.20 10^6/uL Hemoglobin 14.4 12.2-16.2 g/dL Hematocrit 46.2 H 36.0-46.0 % Mean Corpuscular Volume 69.1 L 80.0-100.0 fL Mean Corpuscular Hemoglobin 21.6 L 28.0-32.0 pg Mean Corpuscular Hemoglobin Concent 31.3 L 32.0-36.0 g/dL Red Cell Distribution Width 16.7 H 11.8-14.3 % Platelet Count 234 140-450 10^3/uL Mean Platelet Volume 9.2 6.9-10.8 fL Neutrophils (%) (Auto) 73.4 37.0-80.0 % Lymphocytes (%) (Auto) 21.5 10.0-50.0 % Monocytes (%) (Auto) 4.9 0.0-12.0 % Eosinophils (%) (Auto) 0.0 0.0-7.0 % Basophils (%) (Auto) 0.2 0.0-2.0 % Neutrophils # (Auto) 6.0 1.6-8.6 10 ^3/uL Lymphocytes # (Auto) 1.8 0.4-5.4 10 ^3/uL Monocytes # (Auto) 0.4 0-1.3 10 ^3/uL Eosinophils # (Auto) 0 0-0.8 10 ^3/uL Basophils # (Auto) 0 0-0.2 10 ^3/uL Nucleated Red Blood Cells 0.3 % Sodium Level 173 *H 136-145 mmol/L Potassium Level 3.5 3.5-5.1 mmol/L Chloride Level 132 H 98-107 mmol/L Carbon Dioxide Level 25 20-31 mmol/L Anion Gap 16 H 5-15 Blood Urea Nitrogen 56 H 9-23 mg/dL Creatinine 1.17 H 0.550-1.02 mg/dL Glomerular Filtration Rate Calc 46 >90 mL/min BUN/Creatinine Ratio 47.9 H 10.0-20.0 Serum Glucose 115 H 74-106 mg/dL Lactic Acid Level 1.9 0.4-2.0 mmol/L Calcium Level 9.6 8.7-10.4 mg/dL Total Bilirubin 0.4 0.2-1.0 mg/dL Aspartate Amino Transferase (AST) 47 H 13-40 U/L Alanine Aminotransferase (ALT) 21 7-40 U/L Alkaline Phosphatase 65 46-116 U/L Total Protein 7.3 5.7-8.2 g/dL Albumin 3.9 3.2-4.8 g/dL Current Medications Medications (Trade) Dose Ordered Sig/Roman Route Start Time Stop Time Status Last Admin Sodium Chloride 1,000 ml @ 1,000 mls/hr Q1H ONCE IV 03/04/25 21:00 03/04/25 21:59 DC 03/04/25 21:22 X-Ray, Labs, Meds, VS Comment Imaging was reviewed by this provider, there is no obvious pathological or acute disease process. Pending radiology review Labs were reviewed by this provider, elevated sodium, signs of severe dehydration Patient be given and has bolus, Concerns of possible urinary tract infection, blood cultures were obtained patient will be started on vancomycin Vital signs reviewed by this provider, clinically stable Time of 1ST Reevaluation: 19:55 Reevaluation 1ST: Unchanged Patient Education/Counseling: Diagnosis, Treatment, Other Family Education/Counseling: No Family Present SEPSIS Sepsis Screen Physician Orders Chest Portable (03/04/25 19:34) Urinalysis (03/04/25 19:34) Drug Screen (03/04/25 19:34) Blood Culture (03/04/25 19:34) Electrocardigram (03/04/25 19:57) Vital Signs Date Time Temp Pulse Resp B/P (MAP) Pulse Ox O2 Delivery O2 Flow Rate FiO2 03/04/25 21:14 97.3 102 28 99 97.3 03/04/25 19:30 97.3 60 16 133/102 100 97.3 03/04/25 19:21 115 Laboratory Tests Test 03/04/25 20:02 Lactic Acid Level 1.9 mmol/L (0.4-2.0) White Blood Count 8.2 10^3/uL (4.4-10.8) Medications Medications Dose Ordered Sig/Roman Route Start Time Stop Time Status Last Admin Dose Admin Sodium Chloride 1,000 ml @ 1,000 mls/hr Q1H ONCE IV 03/04/25 21:00 03/04/25 21:59 DC 03/04/25 21:22 Departure 1 Departure Time of Disposition: 22:06 Impression: Primary Impression: Dehydration Additional Impressions: Metabolic encephalopathy Hypernatremia Renal failure Qualified Codes: N17.9 - Acute kidney failure, unspecified; N18.30 - Chronic kidney disease, stage 3 unspecified Decubitus ulcer of back, stage 4 Disposition: ADMITTED INPATIENT Condition: Stable e-Prescriptions No Active Prescriptions or Reported Meds Discharged With: Self Critical Care Note Critical Care Time?: No Stability Stability form required: No Heart Score Heart Score: Heart Score Response (Comments) Value History N/A 0 EKG N/A 0 Age N/A 0 Risk Factors N/A 0 Troponin N/A 0 Total 0 I personally scribed for JAMESON IBRAHIM ([email or web address]) on 03/04/25 at 19:30. Electronically submitted by Jackelin Humphries ([email or web address]). JAMESON IBRAHIM Mar 04, 2025 19:30
[2025-03-04 20:21] LABS: Hematocrit 46.2 % (36.0-46.0); Hemoglobin 14.4 g/dL (12.2-16.2); Mean Corpuscular Hemoglobin 21.6 pg (28.0-32.0); Mean Corpuscular Volume 69.1 fL (80.0-100.0); Nucleated Red Blood Cells % 0.3 %
[2025-03-04 20:31] LABS: Alanine Aminotransferase 21 U/L (7-40); Alkaline Phosphatase 65 U/L (46-116); Anion Gap 16 (5-15); BUN/Creatinine Ratio 47.9 (10.0-20.0); Calcium 9.6 mg/dL (8.7-10.4); Carbon Dioxide 25 mmol/L (20-31); Potassium 3.5 mmol/L (3.5-5.1); Total Protein 7.3 g/dL (5.7-8.2)
[2025-03-04 20:32] LABS: Albumin 3.9 g/dL (3.2-4.8); Bilirubin, Total 0.4 mg/dL (0.2-1.0); Blood Urea Nitrogen 56 mg/dL (9-23); Chloride 132 mmol/L (98-107); Glucose 115 mg/dL (74-106)
[2025-03-04 20:35] LABS: Sodium 173 mmol/L (136-145)
--- NOTE | 2025-03-04 21:00 | DVH ---
CHEST RADIOGRAPH Indication: aloc Technique: Single frontal view of the chest was obtained Comparison: XY CHEST PORTABLE on DOS: 11/06/24, XY CHEST PORTABLE on DOS: 11/03/24 FINDINGS: Lines and Tubes: None. Left-sided approach Biventricular lead AICD satisfactory position. Lungs: No focal consolidation. Pleura: No effusion. No pneumothorax. Cardiomediastinal contours: Unremarkable Bones: No acute osseous abnormality. IMPRESSION: No acute cardiopulmonary disease.
[2025-03-04] MEDS: SODIUM CHLORIDE 0.9% 1,000 ML IV ONE (21:22)
[2025-03-04 22:04] VITALS: PULSE 102; RESP 24; O2SAT 98
[2025-03-04] MEDS ORDERED: VANCOMYCIN 1GM/200ML PM 200 ML IV ONE (22:30)
[2025-03-04 22:43] LABS: Urine Amorphous Crystal FEW /hpf (None Seen); Urine Protein, UAD 1+ (Negative)
[2025-03-04 22:47] LABS: Opiate Scree,Urine Neg (NEGATIVE)
[2025-03-04 22:49] LABS: Amphetamine Screen, Urine Neg (NEGATIVE); Barbiturate Scree,Urine Neg (NEGATIVE); Benzodiazephine Screen, Urine Neg (NEGATIVE); Cannabinoid Screen, Urine Neg (NEGATIVE); Cocaine Screen, Urine Neg (NEGATIVE); Phencyclidine Screen, Urine Neg (NEGATIVE)
[2025-03-04] MEDS: VANCOMYCIN 1GM/200ML PM 250 ML IV ONE (22:56)
[2025-03-04] MEDS: VANCOMYCIN 1GM/250ML KIT 250 ML IV ONE (22:56)
[2025-03-04] MEDS ORDERED: hydrALAZINE HCL 20 MG/ML VL IV PRN (23:45)
[2025-03-04] MEDS: D5W/SOD CHL 0.45% 1,000 ML IV SCH (23:45)
[2025-03-04] MEDS ORDERED: NITROGLYCERIN 0.4 MG SL TAB SL PRN (23:45)
--- NOTE | 2025-03-05 | DVHHP2 ---
History of Present Illness Reason for Visit: Altered mental status History of Present Illness 84-year-old female presents for evaluation of altered mental status. Patient is currently on hospice due to dementia. Per daughters who are at the bedside patient has been having decreased appetite over the past two days and not drin jodi water either. Today patient became more altered so they brought her in for evaluation. Past Medical History Dyslipidemia, hypertension, dementia Past Surgical History Pacemaker Family History Noncontributory Smoke: No ALCOHOL: none Drugs: None Lives: with Family Review of Systems Review of Systems Unable to complete review of systems due to the patient's altered mental status. Allergies: Coded Allergies: NO KNOWN ALLERGIES (Unverified , 11/03/24) Medications Current Medications Medications Dose Ordered Sig/Roman Route Start Time Stop Time Status Last Admin Dose Admin Hydralazine HCl 10 mg Q6HP PRN IV 03/04/25 23:45 UNV Dextrose/Sodium Chloride 1,000 ml @ 85 mls/hr [id number] IV 03/04/25 23:45 UNV Ondansetron HCl 4 mg Q4HP PRN IV 03/04/25 23:45 UNV Enoxaparin Sodium 30 mg DAILY SC 03/05/25 10:00 UNV Nitroglycerin 0.4 mg Q5MINP PRN SL 03/04/25 23:45 UNV Morphine Sulfate 2 mg Q30M PRN IV 03/04/25 23:45 UNV Exam Vital Signs Vital Signs Date Time Temp Pulse Resp B/P (MAP) Pulse Ox O2 Delivery O2 Flow Rate FiO2 03/04/25 22:20 99 27 150/123 (132) 99 03/04/25 22:04 Nasal Cannula* 2 28 03/04/25 21:14 97.3 97.3 Exam Gen: 84-year-old female in moderate distress Skin: Warm, dry, normal color and texture, no rash. HEENT: Normocephalic atraumatic, mucous membranes moist and pink. Neck: Cervical and supraclavicular nodes normal without enlargement, trachea is midline, thyroid gland is normal without masses. Pulmonary: Clear to auscultation and percussion bilaterally. Cardiac: Regular rate and rhythm. No murmur Abdomen: Soft, nontender, nondistended, bowel sounds present all 4 quadrants, no guarding, no rigidity, no organomegaly. Extremities: No cyanosis, clubbing, no edema Neuro: Lethargic Labs/Xrays ORDERING PHYSICIAN: JAMESON IBRAHIM PROCEDURE(s): CXRP - CHEST PORTABLE REASON: aloc ORDER NUMBER(s): [id number], ACCESSION NUMBER(s): [id number] CHEST RADIOGRAPH Indication: aloc Technique: Single frontal view of the chest was obtained Comparison: XY CHEST PORTABLE on DOS: 11/06/24, XY CHEST PORTABLE on DOS: 11/03/24 FINDINGS: Lines and Tubes: None. Left-sided approach Biventricular lead AICD satisfactory position. Lungs: No focal consolidation. Pleura: No effusion. No pneumothorax. Cardiomediastinal contours: Unremarkable Bones: No acute osseous abnormality. IMPRESSION: No acute cardiopulmonary disease. Labs Test 03/04/25 20:55 03/04/25 20:02 Range/Units Urine Color Yellow Yellow Urine Clarity Turbid H Clear Urine pH 5.0 5.0-9.0 Urine Specific [place] 1.031 1.001-1.035 Urine Protein 1+ H Negative Urine Ketones Negative Negative Urine Blood Negative Negative /uL Urine Nitrite Negative Negative Urine Bilirubin Negative Negative Urine Urobilinogen Normal Negative mg/dL Urine Leukocyte Esterase Negative Negative /uL Urine RBC 3 0 - 4 /hpf Urine Microscopic WBC < 1 0-5 /HPF Urine Squamous Epithelial Cells Mod <5 /hpf Urine Amorphous Crystals Few None Seen /hpf Urine Bacteria Few H None Seen /hpf Urine Hyaline Casts Few 0 - 2 /lpf Urine Mucus Few None Seen Urine Glucose Normal Normal mg/dL Urine Opiates Screen Neg NEGATIVE Urine Fentanyl Screen Neg NEGATIVE Urine Barbiturates Screen Neg NEGATIVE Urine Phencyclidine Screen Neg NEGATIVE Urine Amphetamines Screen Neg NEGATIVE Urine Benzodiazepines Screen Neg NEGATIVE Urine Cocaine Screen Neg NEGATIVE Urine Cannabinoids Screen Neg NEGATIVE White Blood Count 8.2 4.4-10.8 10^3/uL Red Blood Count 6.69 H 4.0-5.20 10^6/uL Hemoglobin 14.4 12.2-16.2 g/dL Hematocrit 46.2 H 36.0-46.0 % Mean Corpuscular Volume 69.1 L 80.0-100.0 fL Mean Corpuscular Hemoglobin 21.6 L 28.0-32.0 pg Mean Corpuscular Hemoglobin Concent 31.3 L 32.0-36.0 g/dL Red Cell Distribution Width 16.7 H 11.8-14.3 % Platelet Count 234 140-450 10^3/uL Mean Platelet Volume 9.2 6.9-10.8 fL Neutrophils (%) (Auto) 73.4 37.0-80.0 % Lymphocytes (%) (Auto) 21.5 10.0-50.0 % Monocytes (%) (Auto) 4.9 0.0-12.0 % Eosinophils (%) (Auto) 0.0 0.0-7.0 % Basophils (%) (Auto) 0.2 0.0-2.0 % Neutrophils # (Auto) 6.0 1.6-8.6 10 ^3/uL Lymphocytes # (Auto) 1.8 0.4-5.4 10 ^3/uL Monocytes # (Auto) 0.4 0-1.3 10 ^3/uL Eosinophils # (Auto) 0 0-0.8 10 ^3/uL Basophils # (Auto) 0 0-0.2 10 ^3/uL Nucleated Red Blood Cells 0.3 % Sodium Level 173 *H 136-145 mmol/L Potassium Level 3.5 3.5-5.1 mmol/L Chloride Level 132 H 98-107 mmol/L Carbon Dioxide Level 25 20-31 mmol/L Anion Gap 16 H 5-15 Blood Urea Nitrogen 56 H 9-23 mg/dL Creatinine 1.17 H 0.550-1.02 mg/dL Glomerular Filtration Rate Calc 46 >90 mL/min BUN/Creatinine Ratio 47.9 H 10.0-20.0 Serum Glucose 115 H 74-106 mg/dL Lactic Acid Level 1.9 0.4-2.0 mmol/L Calcium Level 9.6 8.7-10.4 mg/dL Total Bilirubin 0.4 0.2-1.0 mg/dL Aspartate Amino Transferase (AST) 47 H 13-40 U/L Alanine Aminotransferase (ALT) 21 7-40 U/L Alkaline Phosphatase 65 46-116 U/L Total Protein 7.3 5.7-8.2 g/dL Albumin 3.9 3.2-4.8 g/dL SEPSIS Sepsis Screen Date sepsis recognized/suspect: Mar 04, 2025 Time Sepsis recognized/suspect: 2221 Recent Procedure: No On Antibiotic Therapy: No Respiratory Rate >20: Yes Heart Rate >90: Yes Temp<36 C (96.8 F) or >38.3 C: No SBP <90 or MAP <65 mmHG: No New Acute Mental Status Change: Yes Is the patient on CPAP, BIPAP,: No Physician Orders Chest Portable (03/04/25 19:34) Blood Culture (03/04/25 19:34) Electrocardigram (03/04/25 19:57) * Wound Consult (03/04/25 ) Vancomycin 1gm/200ml Pm (03/04/25 22:45) Hydralazine Injection (Apresoline Inject (03/04/25 23:45) D5w/Sod Chl 0.45% (D5w 1/2ns) (03/04/25 23:45) Sodium (03/05/25 12:00) Sodium (03/05/25 18:00) Basic Metabolic Panel (03/05/25 04:00) Ct Head Cva (03/04/25 23:43) Admit (03/04/25 23:43) Ondansetron Hcl (Zofran) (03/04/25 23:45) Complete Blood Count (03/05/25 04:00) Npo (Nothing By Mouth) Diet (03/05/25 Breakfast) Condition: Fair (03/04/25 23:43) Enoxaparin Sodium (Lovenox) (03/05/25 10:00) Maintain Bed Rest (03/04/25 23:43) Sequential Compression Device (03/04/25 ) Nitroglycerin Sublingual (Ntrostat Subli (03/04/25 23:45) Morphine Sulfate Injection (03/04/25 23:45) Stat Ekg For Chest Pain (03/04/25 23:43) Notify Md Of Changes From Base (03/04/25 23:43) Senior Economist For 24 Hours (03/04/25 23:43) Emergency Dysrhythmia Protocol (03/04/25 23:43) Rhythm Strips Once Every Shift (03/04/25 23:43) Oxygen By Nasal Cannula (03/04/25 23:43) *[facility] (03/04/25 23:43) Vital Signs Date Time Temp Pulse Resp B/P (MAP) Pulse Ox O2 Delivery O2 Flow Rate FiO2 03/04/25 22:20 99 27 150/123 (132) 99 03/04/25 22:04 102 24 98 Nasal Cannula* 2 28 03/04/25 21:14 97.3 102 28 99 97.3 03/04/25 19:30 97.3 60 16 133/102 100 97.3 03/04/25 19:21 115 Laboratory Tests Test 03/04/25 20:02 Lactic Acid Level 1.9 mmol/L (0.4-2.0) White Blood Count 8.2 10^3/uL (4.4-10.8) Medications Medications Dose Ordered Sig/Roman Route Start Time Stop Time Status Last Admin Dose Admin Sodium Chloride 1,000 ml @ 1,000 mls/hr Q1H ONCE IV 03/04/25 21:00 03/04/25 21:59 DC 03/04/25 21:22 1,000 MLS/HR Vancomycin HCl 250 ml @ 200 mls/hr ONCE ONCE IV 03/04/25 22:45 03/04/25 23:59 03/04/25 22:56 200 MLS/HR Assessment/Plan Assessment/Plan Assessment Metabolic encephalopathy Hypernatremia Acute kidney injury Dementia Hypertension Plan Admit the patient to telemetry to the hospitalist Maintenance IV fluids Q.6 hours sodium checks Nephrology consultation Wound consult Continue treatment per orders. Plan discussed with: Daughter My Orders Orders - GENNY VALERIO AGACNP Procedure Category Date Status Time Hydralazine Injection PHA 03/04/25 Logged (Apresoline Inject 23:45 D5w/Sod Chl 0.45% PHA 03/04/25 Logged (D5w 1/2ns) 23:45 Sodium LAB 03/05/25 Verified 12:00 Sodium LAB 03/05/25 Verified 18:00 Basic Metabolic Panel LAB 03/05/25 Verified 04:[address] 03/04/25 Logged 23:43 Admit ADMIT 03/04/25 Transmitted 23:43 Ondansetron Hcl PHA 03/04/25 Logged (Zofran) 23:45 Complete Blood Count LAB 03/05/25 Verified 04:00 Npo (Nothing By DIET 03/05/25 Transmitted Mouth) Diet Breakfast Condition: Fair NATHANIEL 03/04/25 In Process 23:43 Enoxaparin Sodium PHA 03/05/25 Logged (Lovenox) 10:00 Maintain Bed Rest [facility] 03/04/25 In Process 23:43 Sequential [facility] 03/04/25 In Process Compression Device Nitroglycerin [facility] 03/04/25 Logged Sublingual (Ntrostat 23:45 Morphine Sulfate [facility] 03/04/25 Logged Injection 23:45 Stat Ekg For Chest [facility] 03/04/25 In Process Pain 23:43 Notify Md Of Changes [facility] 03/04/25 In Process From Base 23:43 Senior Economist For [facility] 03/04/25 In Process 24 Hours 23:43 Emergency Dysrhythmia [facility] 03/04/25 In Process Protocol 23:43 Rhythm Strips Once [facility] 03/04/25 In Process Every Shift 23:43 Oxygen By Nasal RT 03/04/25 Transmitted Cannula 23:43 *[facility] CONS 03/04/25 Transmitted -[place] 23:43 Date of Service: Mar 04, 2025 Billing Provider: GENNY VALERIO Common Visit Codes: [id number] INP/OBS CARE (MOD) GENNY VALERIO Mar 05, 2025 00:00
--- NOTE | 2025-03-05 01:09 | DVH ---
EXAM: CT STROKE CTH INDICATION: AMS TECHNIQUE: CT of the head without intravenous contrast. Radiation Dose Information: CT Dose: CTDI volume is 51.98 mGy. Dose-length product is 833.44 mGy*cm The dose indicators for CT are the volume Computed Tomography (CT) Dose Index (CTDIvol) and the Dose Length Product (DLP), and are measured in units of mGy and mGy-cm, respectively. These indicators are not patient dose, but values generated from the CT scanner acquisition factors. The report includes radiation exposure data for exposures received during this examination. COMPARISON: None FINDINGS: Evaluation is degraded by motion artifact. No acute territorial infarct, intracranial hemorrhage, or mass effect. There is central greater than cortical cerebral atrophy with prominence of the ventricles and sulci. Patchy periventricular and sub cortical white matter hypoattenuation is nonspecific but may be related to small vessel ischemic dise ase. The orbits are normal. The paranasal sinuses and mastoid air cells are clear. The osseous structures are unremarkable. IMPRESSION: 1. No acute territorial infarct, intracranial hemorrhage, or mass effect. 2. Central greater than cortical cerebral atrophy. Chronic microvascular changes. 3. If clinical symptoms persist, MRI may be beneficial in further evaluation. Critical Result: Stroke Alert Findings discussed with MERRY Ruvalcaba at 03/05/2025 01:06 AM, and acknowledged receipt and understandin g of the findings.
--- NOTE | 2025-03-05 02:25 | ECG ---
[facility] Test Date: 2025-03-04 Test Time: 19:21:56 Pat Name: TUAN SCOTT Department: [facility] ED Room: [address] [place] [address] Gender: F Deputy Register Of Deeds: BREONNA : 1940 Requested By: JAMESON IBRAHIM Order Number: [id number] Reading MD: Rk Orta Measurements Intervals [place] Rate: 115 P: 103 VA: 168 QRS: 132 QRSD: 135 T: -65 QT: 379 QTc: 525 Interpretive Statements Ventricular-paced complexes No further analysis attempted due to paced rhythm Electronically Signed On 03-05-2025 22:58:47 PDT by Rk Orta Please click the below link to view image of tracing.
[2025-03-05 04:29] LABS: Hematocrit 43.8 % (36.0-46.0); Hemoglobin 13.6 g/dL (12.2-16.2); Mean Corpuscular Hemoglobin 21.6 pg (28.0-32.0); Mean Corpuscular Volume 69.5 fL (80.0-100.0); Nucleated Red Blood Cells % 0.2 %
[2025-03-05 04:36] LABS: Anion Gap 15 (5-15); Carbon Dioxide 23 mmol/L (20-31)
[2025-03-05 04:37] LABS: Calcium 9.1 mg/dL (8.7-10.4)
[2025-03-05 04:41] LABS: Chloride 132 mmol/L (98-107); Potassium 3.2 mmol/L (3.5-5.1)
[2025-03-05 04:42] LABS: BUN/Creatinine Ratio 62.4 (10.0-20.0)
[2025-03-05 04:44] LABS: Blood Urea Nitrogen 58 mg/dL (9-23); Glucose 135 mg/dL (74-106); Sodium 170 mmol/L (136-145)
[2025-03-05] MEDS: MORPHINE SULFATE INJ 2 MG/ml SYRG IV PRN ×2 (05:09→12:07)
[2025-03-05] MEDS: AMIODARONE BOLUS KIT 100 ML IV ONE ×2 (05:18→05:30)
[2025-03-05] MEDS: AMIODARONE 360mg/200mL PREMIX 200 ML IV ONE ×3 (05:20→08:30)
[2025-03-05] MEDS: LIDOCAINE HCL 100 MG/5ML (2%) SYRG INJ IV ONE ×2 (06:00→06:30)
[2025-03-05 06:10] VITALS: PULSE 165; RESP 29; O2SAT 98
--- NOTE | 2025-03-05 06:28 | ECG ---
[facility] Test Date: 2025-03-05 Test Time: 06:18:37 Pat Name: TUAN SCOTT Department: [facility] ED Room: [address] [place] [address] Gender: F Medicine Assistant: BREONNA : 1940 Requested By: JAMESON IBRAHIM Order Number: [id number] Reading MD: Rk Orta Measurements Intervals [place] Rate: 90 P: -77 MN: 164 QRS: 53 QRSD: 136 T: -85 QT: 429 QTc: 525 Interpretive Statements Atrial-sensed ventricular-paced complexes No further analysis attempted due to paced rhythm Electronically Signed On 03-05-2025 23:00:01 PDT by Rk rOta Please click the below link to view image of tracing.
--- NOTE | 2025-03-05 06:28 | ECG ---
[facility] Test Date: 2025-03-05 Test Time: 05:12:38 Pat Name: TUAN SCOTT Department: Room: [address] [place] [address] Gender: F Trim Installer: GEORGETTE : 1940 Requested By: JAMESON IBRAHIM Order Number: [id number] Reading MD: Rk Orta Measurements Intervals [place] Rate: 207 P: 0 ID: 0 QRS: -75 QRSD: 134 T: 141 QT: 311 QTc: 578 Interpretive Statements Wide-QRS tachycardia Nonspecific IVCD with LAD Electronically Signed On 03-05-2025 22:59:49 PDT by Rk Orta Please click the below link to view image of tracing.
[2025-03-05] MEDS: DIGOXIN (250MCG/ML) 2 ML AMPULE IV ONE (06:45)
[2025-03-05] MEDS: POTASSIUM CHL 20MEQ/100ML 100 ML IV ONE ×3 (07:03→09:10)
[2025-03-05] MEDS: D5W 5% 1,000 ML IV SCH (07:45)
[2025-03-05] MEDS ORDERED: LIDOCAINE 4MG/ML IV SOLN 500 ML IV SCH (07:45)
[2025-03-05] MEDS: MAGNESIUM SULFATE 1GM/100ML 100 ML IV ONE ×3 (08:00→12:00)
[2025-03-05] MEDS: NOREPINEPHRINE 8 MG/250ML KIT 250 ML IV SCH (08:15)
[2025-03-05] MEDS: ENOXAPARIN SOD 30 MG/0.3 ML SYRINGE SC SCH (10:00)
[2025-03-05] MEDS: PANTOPRAZOLE 40 MG/10 ML VIAL INJ IV ONE (10:45)
[2025-03-05] MEDS ORDERED: VANCOMYCIN PER PHARMACY 0 MG IV SCH (10:45)
--- NOTE | 2025-03-05 11:24 | DVHINCON2 ---
MICKY SNYDER [facility] 03/05/25 1124: Date Seen: Mar 05, 2025 Referring Physician BAO Fitzgerald Reason for Consultation V-tach History of Present Illness This is an 84-year-old female who presented to the emergency room via EMS with a chief complaint of generalized weakness. At time of assessment the patient was found nonverbal and obtunded. Information obtained from records which state the patient presented from home with family complaining of increased weakness, dysphagia, and poor appetite. It appears she is bed-bound and was on hospice care. During admission in the emergency room, the patient sustained multiple ventricular tachycardia rhythm events for which she was medicated with amiodarone IV, lidocaine IV, and digoxin IV. At time of assessment, the patient was in an amiodarone drip only. Significant medical history includes end-stage dilated cardiomyopathy, status post biventricular ICD ([employer], implant date September 28, 2017), hypertension, and dementia. Past Medical History Past medical history reviewed. No other significant than mentioned above. Past Surgical History Bi-V ICD implantation (September 28, 2017) Family History Family history reviewed. Social History Lives at home recent hospice care. Allergies: Coded Allergies: NO KNOWN ALLERGIES (Unverified , 11/03/24) Home Meds No Active Prescriptions or Reported Meds Home Meds Home medications reviewed. Current Medications Current Medications Medications (Trade) Dose Ordered Sig/Roman Route PRN Reason Start Time Stop Time Status Last Admin Hydralazine HCl (Apresoline Injection) 10 mg Q6HP PRN IV SBP>150 03/04/25 23:45 03/05/25 10:53 DC Dextrose/Sodium Chloride 1,000 ml @ 85 mls/hr [id number] IV 03/04/25 23:45 03/05/25 08:06 DC 03/04/25 23:45 Ondansetron HCl (Zofran) 4 mg Q4HP PRN IV NAUSEA / VOMITING 03/04/25 23:45 Enoxaparin Sodium (Lovenox) 30 mg DAILY SC 03/05/25 10:00 03/05/25 10:00 Nitroglycerin (Ntrostat Sublingual) 0.4 mg Q5MINP PRN SL FOR CHEST PAIN 03/04/25 23:45 03/05/25 10:53 DC Morphine Sulfate 2 mg Q30M PRN IV FOR CHEST PAIN 03/04/25 23:45 03/05/25 10:53 DC 03/05/25 05:09 Morphine Sulfate 1 mg Q4HP PRN IV SEVERE PAIN (7-10 PAIN SCALE) 03/05/25 04:30 Dextrose 1,000 ml @ 100 mls/hr Q10H IV 03/05/25 07:45 03/05/25 07:45 Lidocaine HCl 500 ml @ 15 mls/hr Q24H IV 03/05/25 07:45 03/05/25 10:53 DC Norepinephrine Bitartrate 250 ml @ 3.75 mls/hr Q24H IV 03/05/25 08:15 Vancomycin HCl 0 ml @ 0 mls/hr UD IV 03/05/25 10:45 Piperacillin Sod/ Tazobactam Sod 100 ml @ 25 mls/hr Q8HR IV 03/05/25 14:00 UNV Pantoprazole Sodium (Protonix) 40 mg DAILY IV 03/06/25 10:00 Review of Systems Constitutional: Generalized weakness Ears, Nose, & Throat: No symptom reported Eyes: No symptom reported Neurological: No symptoms reported Pulmonary/Respiratory: No symptom reported Cardiovascular: No symptom reported Gastrointestinal: No symptom reported Genitourinary: No symptom reported Musculoskeletal: No symptom reported Skin: No symptom reported Psychiatric: No symptom reported Endocrine: No symptom reported Hemotologic/Lymphatic: No symptom reported Vital Signs Vital Signs Date Time Temp Pulse Resp B/P (MAP) Pulse Ox O2 Delivery O2 Flow Rate FiO2 03/05/25 08:25 76 12 126/92 (103) 100 03/05/25 07:44 97.9 97.9 03/05/25 06:10 Nasal Cannula* 3 32 Physical Exam General Appearance: Obtunded. Cachectic. Withdrawn. Nonverbal Head Exam: Normal inspection Neck Exam: Normal inspection. Non-tender. Normal alignment Pulmonary/Respiratory: Clear bilateral breath sounds Cardiovascular/Chest: Regular rate and rhythm. S1, S2. AV paced rhythm. No murmurs. No JVD. Peripheral Pulses: 2+ Radial (R). 2+ Radial (L). 2+ Pedal (R). 2+ Pedal (L) Abdominal Exam: Normal bowel sounds Ankle Exam: Negative ankle edema Lower extremities: Negative lower extremity edema Neuro/Mental Status: Obtunded. Withdrawn. Nonverbal Thoughts/Psych: Unable to assess at this time Appearance: Withdrawn Skin Exam: Reported sacral wound, see wound care documentation Labs/Diagnostic Data Labs Test 03/05/25 03:53 03/04/25 20:55 03/04/25 20:02 Range/Units White Blood Count 8.7 4.4-10.8 10^3/uL Red Blood Count 6.30 H 4.0-5.20 10^6/uL Hemoglobin 13.6 12.2-16.2 g/dL Hematocrit 43.8 36.0-46.0 % Mean Corpuscular Volume 69.5 L 80.0-100.0 fL Mean Corpuscular Hemoglobin 21.6 L 28.0-32.0 pg Mean Corpuscular Hemoglobin Concent 31.1 L 32.0-36.0 g/dL Red Cell Distribution Width 16.6 H 11.8-14.3 % Platelet Count 210 140-450 10^3/uL Mean Platelet Volume 8.9 6.9-10.8 fL Neutrophils (%) (Auto) 78.0 37.0-80.0 % Lymphocytes (%) (Auto) 17.1 10.0-50.0 % Monocytes (%) (Auto) 4.7 0.0-12.0 % Eosinophils (%) (Auto) 0.0 0.0-7.0 % Basophils (%) (Auto) 0.2 0.0-2.0 % Neutrophils # (Auto) 6.8 1.6-8.6 10 ^3/uL Lymphocytes # (Auto) 1.5 0.4-5.4 10 ^3/uL Monocytes # (Auto) 0.4 0-1.3 10 ^3/uL Eosinophils # (Auto) 0 0-0.8 10 ^3/uL Basophils # (Auto) 0 0-0.2 10 ^3/uL Nucleated Red Blood Cells 0.2 % Sodium Level 170 *H 136-145 mmol/L Potassium Level 3.2 L 3.5-5.1 mmol/L Chloride Level 132 H 98-107 mmol/L Carbon Dioxide Level 23 20-31 mmol/L Anion Gap 15 5-15 Blood Urea Nitrogen 58 H 9-23 mg/dL Creatinine 0.93 0.550-1.02 mg/dL Glomerular Filtration Rate Calc 61 >90 mL/min BUN/Creatinine Ratio 62.4 H 10.0-20.0 Serum Glucose 135 H 74-106 mg/dL Calcium Level 9.1 8.7-10.4 mg/dL Urine Color Yellow Yellow Urine Clarity Turbid H Clear Urine pH 5.0 5.0-9.0 Urine Specific [place] 1.031 1.001-1.035 Urine Protein 1+ H Negative Urine Ketones Negative Negative Urine Blood Negative Negative /uL Urine Nitrite Negative Negative Urine Bilirubin Negative Negative Urine Urobilinogen Normal Negative mg/dL Urine Leukocyte Esterase Negative Negative /uL Urine RBC 3 0 - 4 /hpf Urine Microscopic WBC < 1 0-5 /HPF Urine Squamous Epithelial Cells Mod <5 /hpf Urine Amorphous Crystals Few None Seen /hpf Urine Bacteria Few H None Seen /hpf Urine Hyaline Casts Few 0 - 2 /lpf Urine Mucus Few None Seen Urine Glucose Normal Normal mg/dL Urine Opiates Screen Neg NEGATIVE Urine Fentanyl Screen Neg NEGATIVE Urine Barbiturates Screen Neg NEGATIVE Urine Phencyclidine Screen Neg NEGATIVE Urine Amphetamines Screen Neg NEGATIVE Urine Benzodiazepines Screen Neg NEGATIVE Urine Cocaine Screen Neg NEGATIVE Urine Cannabinoids Screen Neg NEGATIVE Lactic Acid Level 1.9 0.4-2.0 mmol/L Total Bilirubin 0.4 0.2-1.0 mg/dL Aspartate Amino Transferase (AST) 47 H 13-40 U/L Alanine Aminotransferase (ALT) 21 7-40 U/L Alkaline Phosphatase 65 46-116 U/L Total Protein 7.3 5.7-8.2 g/dL Albumin 3.9 3.2-4.8 g/dL Assessment End-stage dilated cardiomyopathy, NYHA Class IV Presence of Bi-Ventricular ICD ([employer]) 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 Rowell) Bi-Ventricular ICD interrogation completed revealing multiple sustained V-tach events x 13 since 03/03/2025 with delivered shock therapy at 41J including multiple shocks during admission today. Agree with antiarrhythmic therapy, amiodarone per pharmacy protocol. Transition to oral therapy when appropriate. Initiate beta-hetal if able to tolerate. Replete electrolytes as necessary, K>4 and Mg>2. Hypernatremia treatment per primary care team. Suggest discussing goals of care with family, if decision is to continue to reestablish hospice care consider deactivating ICD device. Very poor prognosis. Cardiology will continue care on as needed basis. Kindly call with any questions or concerns. Thank you for allowing us to participate in this patient's care. Critical care time: 45 min. This medical document was created using an electronic medical record system with voice recognition software and computerized dictation system. Although this document has been carefully reviewed, there might still be some phonetic and typographical errors. Occasional wrong-word or ``sound-alike substitutions may have occurred due to the inherent limitations of voice recognition software. These areas are purely typographical due to imperfections of the software programs and do not reflect any compromise in the patient's medical care. Please read the chart carefully and recognize, using context, where these substitutions have occurred. 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
[2025-03-05] MEDS ORDERED: AMIODARONE 360mg/200mL PREMIX 200 ML IV SCH (11:30)
--- NOTE | 2025-03-05 11:37 | DVHINCON2 ---
Date of service: Mar 05, 2025 Reason for Consultation HERIBERTO History of Present Illness 84-year-old female past medical history of congestive heart failure, dementia. Per family at bedside patient is on home hospice. Patient was brought to the hospital due to weakness. Patient was found to be severely tachycardic in SVT with a heart rate greater than 150. Nephrology consulted due to elevated sodium level. Patient appears to be dry malnourished with decreased muscle tone. Cardiology at bedside interrogation patient's ICD. Allergies: Coded Allergies: NO KNOWN ALLERGIES (Unverified , 11/03/24) Home Meds No Active Prescriptions or Reported Meds Current Medications Current Medications Medications (Trade) Dose Ordered Sig/Roman Route PRN Reason Start Time Stop Time Status Last Admin Hydralazine HCl (Apresoline Injection) 10 mg Q6HP PRN IV SBP>150 03/04/25 23:45 03/05/25 10:53 DC Dextrose/Sodium Chloride 1,000 ml @ 85 mls/hr [id number] IV 03/04/25 23:45 03/05/25 08:06 DC 03/04/25 23:45 Ondansetron HCl (Zofran) 4 mg Q4HP PRN IV NAUSEA / VOMITING 03/04/25 23:45 Enoxaparin Sodium (Lovenox) 30 mg DAILY SC 03/05/25 10:00 03/05/25 10:00 Nitroglycerin (Ntrostat Sublingual) 0.4 mg Q5MINP PRN SL FOR CHEST PAIN 03/04/25 23:45 03/05/25 10:53 DC Morphine Sulfate 2 mg Q30M PRN IV FOR CHEST PAIN 03/04/25 23:45 03/05/25 10:53 DC 03/05/25 05:09 Morphine Sulfate 1 mg Q4HP PRN IV SEVERE PAIN (7-10 PAIN SCALE) 03/05/25 04:30 Dextrose 1,000 ml @ 100 mls/hr Q10H IV 03/05/25 07:45 03/05/25 07:45 Lidocaine HCl 500 ml @ 15 mls/hr Q24H IV 03/05/25 07:45 03/05/25 10:53 DC Norepinephrine Bitartrate 250 ml @ 3.75 mls/hr Q24H IV 03/05/25 08:15 Vancomycin HCl 0 ml @ 0 mls/hr UD IV 03/05/25 10:45 Piperacillin Sod/ Tazobactam Sod 100 ml @ 25 mls/hr Q8HR IV 03/05/25 14:00 UNV Pantoprazole Sodium (Protonix) 40 mg DAILY IV 03/06/25 10:00 Review of Systems weakness H&P Exam Vital Signs/I&O Vital Sign Date Time Temp Pulse Resp B/P (MAP) Pulse Ox O2 Delivery O2 Flow Rate FiO2 03/05/25 08:25 76 12 126/92 (103) 100 03/05/25 07:44 97.9 97.9 03/05/25 06:10 Nasal Cannula* 3 32 l Intake and Output 03/04/25 03/05/25 19:00 07:00 Intake Total 133.33 ml Balance 133.33 ml Intake IV Total 133.33 ml Physical Exam Elderly female Nonverbal but alert Decreased muscle tone Sinus tachycardia No pitting edema Sacral decubitus ulcers Palacios catheter Labs/Diagnostic Data Labs/Diagnostic Data Laboratory Tests Test 03/05/25 03:53 03/04/25 20:55 03/04/25 20:02 Range/Units White Blood Count 8.7 8.2 4.4-10.8 10^3/uL Red Blood Count 6.30 H 6.69 H 4.0-5.20 10^6/uL Hemoglobin 13.6 14.4 12.2-16.2 g/dL Hematocrit 43.8 46.2 H 36.0-46.0 % Mean Corpuscular Volume 69.5 L 69.1 L 80.0-100.0 fL Mean Corpuscular Hemoglobin 21.6 L 21.6 L 28.0-32.0 pg Mean Corpuscular Hemoglobin Concent 31.1 L 31.3 L 32.0-36.0 g/dL Red Cell Distribution Width 16.6 H 16.7 H 11.8-14.3 % Platelet Count 210 234 140-450 10^3/uL Mean Platelet Volume 8.9 9.2 6.9-10.8 fL Neutrophils (%) (Auto) 78.0 73.4 37.0-80.0 % Lymphocytes (%) (Auto) 17.1 21.5 10.0-50.0 % Monocytes (%) (Auto) 4.7 4.9 0.0-12.0 % Eosinophils (%) (Auto) 0.0 0.0 0.0-7.0 % Basophils (%) (Auto) 0.2 0.2 0.0-2.0 % Neutrophils # (Auto) 6.8 6.0 1.6-8.6 10 ^3/uL Lymphocytes # (Auto) 1.5 1.8 0.4-5.4 10 ^3/uL Monocytes # (Auto) 0.4 0.4 0-1.3 10 ^3/uL Eosinophils # (Auto) 0 0 0-0.8 10 ^3/uL Basophils # (Auto) 0 0 0-0.2 10 ^3/uL Nucleated Red Blood Cells 0.2 0.3 % Sodium Level 170 *H 173 *H 136-145 mmol/L Potassium Level 3.2 L 3.5 3.5-5.1 mmol/L Chloride Level 132 H 132 H 98-107 mmol/L Carbon Dioxide Level 23 25 20-31 mmol/L Anion Gap 15 16 H 5-15 Blood Urea Nitrogen 58 H 56 H 9-23 mg/dL Creatinine 0.93 1.17 H 0.550-1.02 mg/dL Glomerular Filtration Rate Calc 61 46 >90 mL/min BUN/Creatinine Ratio 62.4 H 47.9 H 10.0-20.0 Serum Glucose 135 H 115 H 74-106 mg/dL Calcium Level 9.1 9.6 8.7-10.4 mg/dL Urine Color Yellow Yellow Urine Clarity Turbid H Clear Urine pH 5.0 5.0-9.0 Urine Specific [place] 1.031 1.001-1.035 Urine Protein 1+ H Negative Urine Ketones Negative Negative Urine Blood Negative Negative /uL Urine Nitrite Negative Negative Urine Bilirubin Negative Negative Urine Urobilinogen Normal Negative mg/dL Urine Leukocyte Esterase Negative Negative /uL Urine RBC 3 0 - 4 /hpf Urine Microscopic WBC < 1 0-5 /HPF Urine Squamous Epithelial Cells Mod <5 /hpf Urine Amorphous Crystals Few None Seen /hpf Urine Bacteria Few H None Seen /hpf Urine Hyaline Casts Few 0 - 2 /lpf Urine Mucus Few None Seen Urine Glucose Normal Normal mg/dL Urine Opiates Screen Neg NEGATIVE Urine Fentanyl Screen Neg NEGATIVE Urine Barbiturates Screen Neg NEGATIVE Urine Phencyclidine Screen Neg NEGATIVE Urine Amphetamines Screen Neg NEGATIVE Urine Benzodiazepines Screen Neg NEGATIVE Urine Cocaine Screen Neg NEGATIVE Urine Cannabinoids Screen Neg NEGATIVE Lactic Acid Level 1.9 0.4-2.0 mmol/L Total Bilirubin 0.4 0.2-1.0 mg/dL Aspartate Amino Transferase (AST) 47 H 13-40 U/L Alanine Aminotransferase (ALT) 21 7-40 U/L Alkaline Phosphatase 65 46-116 U/L Total Protein 7.3 5.7-8.2 g/dL Albumin 3.9 3.2-4.8 g/dL Assessment Acute kidney injury in the setting of volume depletion SVT Hypernatremia Hypokalemia renal function improving Continue with D5W at a rate of 100 cc/hour Monitor fluid balance is Avoid hypotension wound care Cardiology on the case for rate control Potassium replacement IV Per primary team at bedside patient was originally hospice primary team we will determine goals of care Plan discussed with: Daughter SIM VAN MD Mar 05, 2025 11:37
--- NOTE | 2025-03-05 11:39 | DVHPNRES ---
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 Patient recently had a urinary tract infection which was treated. On arrival to the ER patient was tachycardic with the ECG showing ventricular paced rhythm with a LVH , LBBB. Patient was on hospice care and has been bed-bound. Early in the morning today patient went into wide complex ventricular tachycardia she was started on amiodarone was given lidocaine and digoxin and she converted back into sinus ventricular paced rhythm and rate was controlled. Patient was found to have grade 4 sacral ulcer. 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 Is not responsive to verbal commands but responds to calling her name out. No apparent respiratory distress on nasal cannula at 2 L/min. Objective vital signs Vital Sign Date Time Temp Pulse Resp B/P (MAP) Pulse Ox O2 Delivery O2 Flow Rate FiO2 03/05/25 08:25 76 12 126/92 (103) 100 03/05/25 07:44 97.9 97.9 03/05/25 06:10 Nasal Cannula* 3 32 Total Intake and Output 03/04/25 03/04/25 03/05/25 15:00 23:00 07:00 Intake Total 133.33 ml Balance 133.33 ml medications Current Medications Medications Dose Ordered Sig/Roman Route Start Time Stop Time Status Last Admin Dose Admin Ondansetron HCl 4 mg Q4HP PRN IV 03/04/25 23:45 Enoxaparin Sodium 30 mg DAILY SC 03/05/25 10:00 03/05/25 10:00 30 MG Morphine Sulfate 1 mg Q4HP PRN IV 03/05/25 04:30 Dextrose 1,000 ml @ 100 mls/hr Q10H IV 03/05/25 07:45 03/05/25 07:45 100 MLS/HR Norepinephrine Bitartrate 250 ml @ 3.75 mls/hr Q24H IV 03/05/25 08:15 Vancomycin HCl 0 ml @ 0 mls/hr UD IV 03/05/25 10:45 Piperacillin Sod/ Tazobactam Sod 100 ml @ 25 mls/hr Q8HR IV 03/05/25 14:00 UNV Pantoprazole Sodium 40 mg DAILY IV 03/06/25 10:00 Examination Gen - no pallor, no icterus, no cyanosis, no extremity edema . Skin - Patients skin is warm and dry. HEENT - normocephalic, atraumatic, moist mucous membranes. Neck - no LAD, no JVD Pulmonary - B/L equal air entry with diminished breath sounds on the right, no rales, no wheezing, no stridor. cardiovascular - regular S1,S2 heard, no added sounds, no murmurs heard. peripheral pulses normal radial 2+, pedal 1+. GI - soft abdomen. Bowel sounds normoactive Neurological - Patient is nonresponsive to verbal commands but only wakes up motor responses or verbal response. laboratory and microbiology Laboratory Tests 03/05/25 03:53 Test 03/05/25 03:53 Range/Units Serum Glucose 135 H 74-106 mg/dL Problem List/Assessment/Plan Problem List/Assessment/Plan Neurology Acute metabolic encephalopathy likely due to hypernatremia/sepsis/dehydration - IV fluids - CT head shows central greater than cortical cerebral atrophy, chronic microvascular changes Respiratory Chest x-ray bilaterally shows hyperinflated lungs, cardiomegaly Cardiovascular Wide complex Ventricular tachycardia s/p conversion End-stage dilated cardiomyopathy Heart failure with reduced ejection fraction Vyvdxwey-bi-gcbxsz LVH Moderate mitral and tricuspid regurgitation Atwap-pn-wykfshps pericardial effusion, no tamponade - echo done showed LVEF less than 10% - on amiodarone drip - IV fluids - monitor urine output - AICD interrogation done, report pending Infectious disease Sepsis likely due to sacral wound Grade 4 sacral wound - wound cultures pending - blood cultures pending - on vancomycin and Zosyn Nephrology HERIBERTO on CKD likely due to VMN Hypernatremia Hypokalemia - D5W at 100 mL/hr - potassium replaced PUD prophylaxis: Protonix DVT prophylaxis: Enoxaparin NPO currently Goals of care discussed with the patient's family at bedside including rmlbuyre-ue-ykp. Long dw family about poor prognosis Code status: Full code Critical care time spent excluding procedures: 81 minutes Case discussed with Dr. Hercules Plan discussed with: Other (Taldjfnf-st-lmg, MERRY Ray) My Orders My Orders Orders - DOUGLAS ARREOLA Procedure Category Date Status Time Wound Culture W/ Gs VÍCTOR 03/05/25 Uncollected 10:31 Respiratory Culture VÍCTOR 03/05/25 Uncollected W/ Gs 10:31 Urine Bacterial VÍCTOR 03/05/25 Uncollected Culture 10:31 Vancomycin Per PHA 03/05/25 In Process Pharmacy 10:45 Piperacillin-Tazob PHA 03/05/25 Logged 3.375gm (Zosyn 3.375g 14:00 Complete Blood Count LAB 03/05/25 Logged 12:00 Lactic Acid W/ Reflex LAB 03/05/25 Logged Order 12:00 Rapid Influenza A&B LAB 03/05/25 Logged 10:31 Covid19 Antigen Regine LAB 03/05/25 Logged PTPTT LAB 03/05/25 Logged 12:00 Pantoprazole PHA 03/06/25 In Process (Protonix) 10:00 Vancomycin,Random LAB 03/06/25 Verified 04:00 Npo (Nothing By DIET 03/05/25 Transmitted Mouth) Diet Lunch Date of Service: Mar 05, 2025 Billing Provider: GENNY HERCULES MD Common Visit Codes: 88504-ZITKBOOI CARE 30-74 MIN, 27146-UUKYPATY CARE-EACH +30MIN DOUGLAS ARREOLA Mar 05, 2025 11:39 GENNY HERCULES MD Mar 06, 2025 13:40
--- NOTE | 2025-03-05 11:51 | DVHSR ---
APPROVED REPORT EXAM: Two-dimensional and M-mode echocardiogram with Doppler and color Doppler. Blood Pressure: 125/97 mmHg INDICATION Vtach, SVT RISK FACTORS Height: 65, Weight: 89 DIMENSIONS LVDd4.5 (3.8-5.7cm)LA (2D)4.2 (1.9-4.0cm)Aortic Root3.3 (2.0-3.7cm) LVDs4.4 (2.5-4.0cm)LA (MM) (1.9-4.0cm)Aortic Cusp Exc1.2 (1.5-2.0cm) EF (%) 5.0 (55-70%)Rt. Atrium3.3 (1.9-4.0cm)Asc. Aorta3.3 cm Mitral Valve MitralMitral Stenosis E wave0.90m/sMV Mean GR.mmHg A wave0.52m/sMV Peak GR.99mmHg E/A ratio1.72D MVAcm2 DECEL [id number] 1/2 Timems Aortic Valve Aortic ValveAortic Stenosis V10.57m/Mumtaz Mean GR.2mmHg V20.99m/Mumtaz Peak GR.4mmHg LVOT Diameter2.1 (1.8-2.4cm)Doppler AVA1.99cm2 AI P 1/2 Dubz300.38ms Tricuspid Valve TR Velocity3.14m/s [id number] Conclusion lvef <10% by visual estimate end stage dilated LV moderate to severe LVH RV dysfunction, pacing lead in RV biatrial enlargement moderate mitral regurg mild aortic regurg moderat tricuspid regurg small to moderate pericardial effusion adjacent to RV, small pocket of fluid, no tamponade
[2025-03-05] MEDS: ONDANSETRON HCL 4 MG/2 ML VIAL IV PRN (12:06)
[2025-03-05 12:40] VITALS: PULSE 62; RESP 20; O2SAT 100
[2025-03-05 13:10] LABS: Hemoglobin 13.0 g/dL (12.2-16.2); Mean Corpuscular Hemoglobin 21.5 pg (28.0-32.0); Nucleated Red Blood Cells % 0.4 %
[2025-03-05 13:13] LABS: Hematocrit 43.0 % (36.0-46.0); Mean Corpuscular Volume 71.0 fL (80.0-100.0)
[2025-03-05 13:23] LABS: Potassium 3.8 mmol/L (3.5-5.1)
[2025-03-05 13:24] LABS: Anion Gap 14 (5-15); Carbon Dioxide 21 mmol/L (20-31)
[2025-03-05 13:25] LABS: Calcium 8.9 mg/dL (8.7-10.4)
[2025-03-05 13:26] LABS: INR 1.23 (0.9-1.15); Partial Thromboplastin Time 24.4 SEC (24.5-34.5); Prothrombin Time 12.8 sec (9.3-11.8)
[2025-03-05 13:28] LABS: Chloride 131 mmol/L (98-107); Sodium 166 mmol/L (136-145)
[2025-03-05 13:30] LABS: BUN/Creatinine Ratio 37.5 (10.0-20.0); Blood Urea Nitrogen 39 mg/dL (9-23); Glucose 203 mg/dL (74-106); Magnesium 3.5 mg/dL (1.6-2.6)
[2025-03-05 13:53] LABS: COVID19 ANTIGEN SOFIA FIA NEGATIVE (NEGATIVE)
[2025-03-05] MEDS: AMIODARONE 360mg/200mL PREMIX 200 ML IV SCH (14:30)
[2025-03-05] MEDS: PIPERACILLIN-TAZOB 3.375GM 100 ML IV SCH (16:17)
--- NOTE | 2025-03-05 19:35 | DVH ---
CLINICAL HISTORY: right sided diminished breath sounds pneumo TECHNIQUE: Single view of the chest was obtained. COMPARISON: XY CHEST PORTABLE on DOS: 03/04/25, XY CHEST PORTABLE on DOS: 11/06/24, XY CHEST PORTABLE o n DOS: 11/03/24 FINDINGS: There is a 3 lead left chest wall pacing device. The heart is mildly enlarged and pulmonary vasculatu re appears normal. The heart size and pulmonary vasculature are normal. The lungs are clear. IMPRESSION: NO ACUTE CARDIOPULMONARY PROCESS.
[2025-03-05 20:01] VITALS: PULSE 60; RESP 20; O2SAT 95
[2025-03-05 22:15] VITALS: RESP 20; O2SAT 98
[2025-03-06] VITALS (62 sets, daily range): BP systolic 125–158; BP diastolic 77–106; PULSE 60–65; RESP 0–24; TEMP 96.4–97.8; O2SAT 96–100
[2025-03-06 00:49] LABS: Anion Gap 11 (5-15); Carbon Dioxide 22 mmol/L (20-31); Chloride 127 mmol/L (98-107); Potassium 3.4 mmol/L (3.5-5.1); Sodium 160 mmol/L (136-145)
[2025-03-06 00:50] LABS: Calcium 8.4 mg/dL (8.7-10.4)
[2025-03-06 00:54] LABS: BUN/Creatinine Ratio 50.0 (10.0-20.0)
[2025-03-06 00:58] LABS: Blood Urea Nitrogen 46 mg/dL (9-23); Glucose 205 mg/dL (74-106)
[2025-03-06 04:58] LABS: Hemoglobin 12.2 g/dL (12.2-16.2)
[2025-03-06 05:00] LABS: Hematocrit 38.8 % (36.0-46.0); Mean Corpuscular Hemoglobin 21.7 pg (28.0-32.0); Mean Corpuscular Volume 68.8 fL (80.0-100.0); Nucleated Red Blood Cells % 0.4 %
[2025-03-06 05:07] LABS: Potassium 3.6 mmol/L (3.5-5.1)
[2025-03-06 05:08] LABS: Anion Gap 10 (5-15); Carbon Dioxide 23 mmol/L (20-31)
[2025-03-06 05:09] LABS: Calcium 8.5 mg/dL (8.7-10.4); Chloride 124 mmol/L (98-107); Sodium 157 mmol/L (136-145)
[2025-03-06 05:13] LABS: BUN/Creatinine Ratio 39.1 (10.0-20.0); Blood Urea Nitrogen 43 mg/dL (9-23); Glucose 203 mg/dL (74-106)
[2025-03-06 05:36] LABS: Magnesium 3.3 mg/dL (1.6-2.6)
--- NOTE | 2025-03-06 07:33 | DVH ---
CHEST RADIOGRAPH Indication:ENTERIC TUBE PLACEMENT Technique: Single frontal view of the chest was obtained COMPARISON: 03/05/2025 FINDINGS: Lines and Tubes: New Enteric catheter courses below the level of the diaphragm and terminates just di stal to the level of the gastroesophageal junction. Left anterior chest wall cardiac pacing device no marianne. Lungs: Clear Pleura: No effusion. No pneumothorax. Cardiomediastinal contours: Cardiomegaly. Bones: Unremarkable IMPRESSION: 1. No acute disease. 2. Cardiomegaly. 3. Enteric catheter tip just distal to the level of the gastroesophageal junction.
[2025-03-06] MEDS: D5W 5% 1,000 ML IV SCH (07:45)
[2025-03-06] MEDS: LACTULOSE 20Gm/30ML SOLN PO SCH (09:40)
[2025-03-06] MEDS: PANTOPRAZOLE 40 MG/10 ML VIAL INJ IV SCH (09:40)
[2025-03-06] MEDS: VANCOMYCIN 1GM/250ML KIT 250 ML IV ONE (13:03)
--- NOTE | 2025-03-06 13:05 | DVHPN2 ---
Progress Note Date Seen: Mar 06, 2025 Medical Necessity Reason Pt with a Central, PICC or Fol: Yes The following are medically ne: Palacios Catheter Subjective Changes from previous H/P or p: No Changes Review of Systems: Deferred Objective vital signs Vital Sign Date Time Temp Pulse Resp B/P (MAP) Pulse Ox O2 Delivery O2 Flow Rate FiO2 03/06/25 12:15 64 19 153/96 (115) 100 03/06/25 12:00 97.8 97.8 03/06/25 12:00 Nasal Cannula* 3 32 Total Intake and Output 03/05/25 03/05/25 03/06/25 15:00 23:00 07:00 Intake Total 1099.98 ml 1064.946 ml 568.64 ml Output Total 650 ml Balance 1099.98 ml 1064.946 ml -81.36 ml medications Current Medications Medications Dose Ordered Sig/Rmoan Route Start Time Stop Time Status Last Admin Dose Admin Ondansetron HCl 4 mg Q4HP PRN IV 03/04/25 23:45 03/05/25 18:02 4 MG Enoxaparin Sodium 30 mg DAILY SC 03/05/25 10:00 03/06/25 09:40 30 MG Morphine Sulfate 1 mg Q4HP PRN IV 03/05/25 04:30 03/05/25 18:01 1 MG Norepinephrine Bitartrate 250 ml @ 3.75 mls/hr Q24H IV 03/05/25 08:15 Vancomycin HCl 0 ml @ 0 mls/hr UD IV 03/05/25 10:45 Piperacillin Sod/ Tazobactam Sod 100 ml @ 25 mls/hr Q8HR IV 03/05/25 14:00 03/06/25 05:17 25 MLS/HR Pantoprazole Sodium 40 mg DAILY IV 03/06/25 10:00 03/06/25 09:40 40 MG Lactulose 30 ml BID PO 03/06/25 10:00 03/06/25 09:40 30 ML Dextrose 1,000 ml @ 60 mls/hr [id number] IV 03/06/25 07:45 03/06/25 07:45 60 MLS/HR Examination: GENERAL:Abnormal, LUNGS:Abnormal, CVS:Abnormal, NEURO:Abnormal laboratory and microbiology Laboratory Tests 03/06/25 04:25 Test 03/06/25 04:25 Range/Units Serum Glucose 203 H 74-106 mg/dL Microbiology Date/Time Source Procedure Growth Status 03/05/25 09:57 Sacrum Gram Stain Pending Resulted 03/05/25 09:57 Sacrum Wound Culture - Preliminary Resulted 03/04/25 20:02 Blood Blood Culture - Preliminary NO GROWTH AFTER 24 HOURS OF INCUBATION. Resulted Problem List/Assessment/Plan Problem List/Assessment/Plan Acute kidney injury in the setting of volume depletion SVT Dilated cardiomyopathy EF < 10% Hypernatremia Hypokalemia renal function improving reduce D5W at a rate of 60 cc/hour , convert to free water over 24 hr period in q 4 hr dosing via NGT after tube feeding is started Monitor fluid balance Avoid hypotension wound care Cardiology on the case for rate control Potassium replacement IV Per primary team at bedside patient was originally hospice primary team we will determine goals of care Plan discussed with: Other (nurse) My Orders My Orders Orders - SIM VAN MD Procedure Category Date Status Time D5w 5% (Dextrose 5%) PHA 03/06/25 In Process 07:45 Total Time (mins): 26 SIM VAN MD Mar 06, 2025 13:05
[2025-03-06] MEDS: AMIODARONE HCL 200 MG TAB GT ONE (13:57)
[2025-03-06] MEDS: FREE WATER GT SCH (13:57)
--- NOTE | 2025-03-06 16:48 | DVHPNRES ---
Progress Note Date Seen: Mar 06, 2025 Resident Creating Document: DOUGLAS ARREOLA RESIDENT Medical Necessity Reason Pt with a Central, PICC or Fol: Yes The following are medically ne: Palacios Catheter Subjective Review of Systems Patient seen and examined at the bedside. Is not responsive to verbal commands but responds to calling her name out. No apparent respiratory distress on nasal cannula at 2 L/min. Objective vital signs Vital Sign Date Time Temp Pulse Resp B/P (MAP) Pulse Ox O2 Delivery O2 Flow Rate FiO2 03/06/25 16:01 96.4 96.4 03/06/25 16:00 62 03/06/25 16:00 17 100 Nasal Cannula* 3 32 Total Intake and Output 03/05/25 03/05/25 03/06/25 15:00 23:00 07:00 Intake Total 1099.98 ml 1064.946 ml 568.64 ml Output Total 650 ml Balance 1099.98 ml 1064.946 ml -81.36 ml medications Current Medications Medications Dose Ordered Sig/Roman Route Start Time Stop Time Status Last Admin Dose Admin Ondansetron HCl 4 mg Q4HP PRN IV 03/04/25 23:45 03/05/25 18:02 4 MG Enoxaparin Sodium 30 mg DAILY SC 03/05/25 10:00 03/06/25 09:40 30 MG Morphine Sulfate 1 mg Q4HP PRN IV 03/05/25 04:30 03/05/25 18:01 1 MG Norepinephrine Bitartrate 250 ml @ 3.75 mls/hr Q24H IV 03/05/25 08:15 Vancomycin HCl 0 ml @ 0 mls/hr UD IV 03/05/25 10:45 Piperacillin Sod/ Tazobactam Sod 100 ml @ 25 mls/hr Q8HR IV 03/05/25 14:00 03/06/25 13:57 25 MLS/HR Pantoprazole Sodium 40 mg DAILY IV 03/06/25 10:00 03/06/25 09:40 40 MG Lactulose 30 ml BID PO 03/06/25 10:00 03/06/25 09:40 30 ML Amiodarone HCl 200 mg Q12HR GT 03/06/25 22:00 Purified Water 100 ml Q4HR GT 03/06/25 14:00 03/06/25 13:57 100 ML Examination Gen - no pallor, no icterus, no cyanosis, no extremity edema . Skin - Patients skin is warm and dry. HEENT - normocephalic, atraumatic, moist mucous membranes. Neck - no LAD, no JVD Pulmonary - B/L equal air entry with diminished breath sounds on the right, no rales, no wheezing, no stridor. cardiovascular - regular S1,S2 heard, no added sounds, no murmurs heard. peripheral pulses normal radial 2+, pedal 1+. GI - soft abdomen. Bowel sounds normoactive Neurological - Patient is nonresponsive to verbal commands but only wakes up motor responses or verbal response. laboratory and microbiology Laboratory Tests 03/06/25 04:25 Test 03/06/25 04:25 Range/Units Serum Glucose 203 H 74-106 mg/dL Microbiology Date/Time Source Procedure Growth Status 03/05/25 09:57 Sacrum Gram Stain - Final Resulted 03/05/25 09:57 Sacrum Wound Culture - Preliminary Resulted 03/04/25 20:02 Blood Blood Culture - Preliminary NO GROWTH AFTER 24 HOURS OF INCUBATION. Resulted Problem List/Assessment/Plan Problem List/Assessment/Plan Neurology Acute metabolic encephalopathy likely due to hypernatremia/sepsis/dehydration - IV fluids - CT head shows central greater than cortical cerebral atrophy, chronic microvascular changes Respiratory Chest x-ray bilaterally shows hyperinflated lungs, cardiomegaly Cardiovascular Wide complex Ventricular tachycardia s/p conversion End-stage dilated cardiomyopathy Heart failure with reduced ejection fraction Diinmaby-xu-nacyqc LVH Moderate mitral and tricuspid regurgitation Yoszu-rd-ozydfmwk pericardial effusion, no tamponade - echo done showed LVEF less than 10% - on amiodarone 200mg bid - monitor urine output - AICD interrogation done, report pending Infectious disease Sepsis likely due to sacral wound Grade 4 sacral wound - wound cultures preliminary showing growth of Staph aureus, Enterococcus species - blood cultures pending - on vancomycin and Zosyn Nephrology HERIBERTO on CKD likely due to VMN Hypernatremia Hypokalemia - D5W at 60 mL/hr - free water via GT - potassium replaced PUD prophylaxis: Protonix DVT prophylaxis: Enoxaparin NPO currently Goals of care discussed with the patient's family at bedside . Code status: Full code Critical care time spent excluding procedures: 64 minutes Case discussed with Dr. Hercules Plan discussed with: Other (MERRY Carrasco) My Orders My Orders Orders - DOUGLAS ARREOLA Procedure Category Date Status Time Creatinine LAB 03/07/25 Verified 04:00 Vancomycin,Random LAB 03/07/25 Verified 04:00 * Dietary Consult CONS 03/06/25 Transmitted 11:52 Cleanse Wound With NATHANIEL 03/06/25 In Process Wound Clean 10:08 Amiodarone Tablet PHA 03/06/25 In Process (Cordarone Tablet) 22:00 Free Water PHA 03/06/25 In Process 14:00 Lactulose Oral PHA 03/07/25 Logged 10:00 Nutritional PHA 03/06/25 Transmitted Supplements (Jevity 16:45 Sodium LAB 03/06/25 Transmitted 17:00 Date of Service: Mar 06, 2025 Billing Provider: GENNY HERCULES MD Common Visit Codes: 99949-[id number] CARE 30-74 MIN DOUGLAS ARREOLA RESIDENT Mar 06, 2025 16:48 GENNY HERCULES MD Mar 07, 2025 11:33
[2025-03-06 19:51] LABS: Magnesium 2.9 mg/dL (1.6-2.6); Potassium 3.1 mmol/L (3.5-5.1)
[2025-03-06] MEDS: AMIODARONE HCL 200 MG TAB GT SCH (22:41)
[2025-03-07] VITALS (7 sets, daily range): BP systolic 109–128; BP diastolic 74–87; PULSE 59–64; RESP 14–20; TEMP 97.5–98.8; O2SAT 97–100
[2025-03-07] MEDS ORDERED: MEMA1TAB5 PO (00:23)
[2025-03-07] MEDS ORDERED: SENN-58 PO (00:23)
[2025-03-07] MEDS ORDERED: DOCU-94 PO (00:23)
[2025-03-07] MEDS: LACTULOSE 20Gm/30ML SOLN PO SCH (09:18)
[2025-03-07] MEDS: FREE WATER GT SCH (10:00)
[2025-03-07 11:51] LABS: Nucleated Red Blood Cells % 0.3 %
[2025-03-07 11:55] LABS: Hematocrit 40.9 % (36.0-46.0); Hemoglobin 12.5 g/dL (12.2-16.2); Mean Corpuscular Hemoglobin 21.4 pg (28.0-32.0); Mean Corpuscular Volume 69.8 fL (80.0-100.0)
[2025-03-07] MEDS: POTASSIUM EFFERVESENT TAB 25 MEQ GT ONE (11:58)
[2025-03-07 12:02] LABS: Alanine Aminotransferase 11 U/L (7-40); Alkaline Phosphatase 58 U/L (46-116); Anion Gap 11 (5-15); BUN/Creatinine Ratio 28.3 (10.0-20.0); Carbon Dioxide 21 mmol/L (20-31); Glucose 92 mg/dL (74-106)
[2025-03-07 12:03] LABS: Albumin 3.0 g/dL (3.2-4.8); Blood Urea Nitrogen 26 mg/dL (9-23); Calcium 8.4 mg/dL (8.7-10.4); Chloride 122 mmol/L (98-107); Magnesium 3.0 mg/dL (1.6-2.6); Potassium 3.3 mmol/L (3.5-5.1); Sodium 154 mmol/L (136-145); Total Protein 5.6 g/dL (5.7-8.2)
[2025-03-07 12:05] LABS: Bilirubin, Total 0.3 mg/dL (0.2-1.0)
--- NOTE | 2025-03-07 13:48 | ECG ---
[facility] Test Date: 2025-03-05 Test Time: 07:37:05 Pat Name: TUAN SCOTT [facility] Patient [id number] Room: [facility]9T A Gender: F Repairer: obinna : 1940 Requested By: JAMESON IBRAHIM Order Number: [id number] Reading MD: Rk Orta Measurements Intervals [place] Rate: 89 P: 89 [place]: 177 QRS: -75 QRSD: 117 T: 99 QT: 400 QTc: 487 Interpretive Statements Atrial-sensed ventricular-paced complexes No further analysis attempted due to paced rhythm Electronically Signed On 03-12-2025 13:27:56 PDT by Rk Orta Please click the below link to view image of tracing.
--- NOTE | 2025-03-07 14:03 | ECG ---
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
--- NOTE | 2025-03-07 14:03 | ECG ---
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
--- NOTE | 2025-03-07 14:20 | DVHPN2 ---
Progress Note Date Seen: Mar 07, 2025 Medical Necessity Reason Pt with a Central, PICC or Fol: Yes The following are medically ne: Palacios Catheter Subjective Review of Systems: Deferred Objective vital signs Vital Sign Date Time Temp Pulse Resp B/P (MAP) Pulse Ox O2 Delivery O2 Flow Rate FiO2 03/07/25 13:24 66 14 125/93 03/07/25 09:00 98.8 100 98.8 03/06/25 20:50 Room Air* 0 21 Total Intake and Output 03/06/25 03/06/25 03/07/25 15:00 23:00 07:00 Intake Total 794 ml 260 ml 100 ml Output Total 300 ml 200 ml Balance 794 ml -40 ml -100 ml medications Current Medications Medications Dose Ordered Sig/Roman Route Start Time Stop Time Status Last Admin Dose Admin Ondansetron HCl 4 mg Q4HP PRN IV 03/04/25 23:45 03/05/25 18:02 4 MG Enoxaparin Sodium 30 mg DAILY SC 03/05/25 10:00 03/07/25 09:19 30 MG Morphine Sulfate 1 mg Q4HP PRN IV 03/05/25 04:30 03/07/25 13:24 1 MG Vancomycin HCl 0 ml @ 0 mls/hr UD IV 03/05/25 10:45 Piperacillin Sod/ Tazobactam Sod 100 ml @ 25 mls/hr Q8HR IV 03/05/25 14:00 03/07/25 13:25 25 MLS/HR Pantoprazole Sodium 40 mg DAILY IV 03/06/25 10:00 03/07/25 09:18 40 MG Enteral Nutritional Formula 1,000 ml 30ML/HR GT 03/06/25 16:45 Purified Water 250 ml Q4HR GT 03/07/25 10:00 03/07/25 13:25 250 ML Amiodarone HCl 200 mg Q12HR NG 03/07/25 22:00 Lactulose 30 ml DAILY NG 03/08/25 10:00 Examination: GENERAL:Abnormal, LUNGS:Abnormal, CVS:Abnormal, NEURO:Abnormal laboratory and microbiology Laboratory Tests 03/07/25 10:45 Test 03/07/25 10:45 Range/Units Serum Glucose 92 74-106 mg/dL Microbiology Date/Time Source Procedure Growth Status 03/05/25 09:57 Sacrum Gram Stain - Final Resulted 03/05/25 09:57 Wound Culture - Preliminary Staphylococcus aureus Enterococcus faecalis Resulted 03/04/25 20:02 Blood Blood Culture - Preliminary NO GROWTH AFTER 48 HOURS OF INCUBATION. Resulted Problem List/Assessment/Plan Problem List/Assessment/Plan Acute kidney injury in the setting of volume depletion SVT Dilated cardiomyopathy EF < 10% Hypernatremia Hypokalemia renal function improving continue free water replace potassium IV convert to free water over 24 hr period in q 4 hr dosing via NGT after tube feeding is started Monitor fluid balance Avoid hypotension wound care Cardiology on the case for rate control Potassium replacement IV Per primary team at bedside patient was originally hospice primary team we will determine goals of care Plan discussed with: Other (nurse) Total Time (mins): 33 SIM VAN MD Mar 07, 2025 14:20
[2025-03-07] MEDS: VANCOMYCIN 1GM/250ML KIT 250 ML IV ONE (15:58)
--- NOTE | 2025-03-07 17:36 | DVHPNRES ---
Progress Note Date Seen: Mar 07, 2025 Resident Creating Document: DOUGLAS ARREOLA RESIDENT Medical Necessity Reason Pt with a Central, PICC or Fol: Yes The following are medically ne: Palacios Catheter Subjective Review of Systems Patient seen and examined at the bedside. Is not responsive to verbal commands but responds to calling her name out. No apparent respiratory distress on room air. Objective vital signs Vital Sign Date Time Temp Pulse Resp B/P (MAP) Pulse Ox O2 Delivery O2 Flow Rate FiO2 03/07/25 17:18 97.5 60 20 109/74 (86) 97 97.5 03/06/25 20:50 Room Air* 0 21 Total Intake and Output 03/06/25 03/06/25 03/07/25 15:00 23:00 07:00 Intake Total 794 ml 260 ml 100 ml Output Total 300 ml 200 ml Balance 794 ml -40 ml -100 ml medications Current Medications Medications Dose Ordered Sig/Roman Route Start Time Stop Time Status Last Admin Dose Admin Ondansetron HCl 4 mg Q4HP PRN IV 03/04/25 23:45 03/05/25 18:02 4 MG Enoxaparin Sodium 30 mg DAILY SC 03/05/25 10:00 03/07/25 09:19 30 MG Morphine Sulfate 1 mg Q4HP PRN IV 03/05/25 04:30 03/07/25 13:24 1 MG Vancomycin HCl 0 ml @ 0 mls/hr UD IV 03/05/25 10:45 Piperacillin Sod/ Tazobactam Sod 100 ml @ 25 mls/hr Q8HR IV 03/05/25 14:00 03/07/25 13:25 25 MLS/HR Pantoprazole Sodium 40 mg DAILY IV 03/06/25 10:00 03/07/25 09:18 40 MG Enteral Nutritional Formula 1,000 ml 30ML/HR GT 03/06/25 16:45 Purified Water 250 ml Q4HR GT 03/07/25 10:00 03/07/25 13:25 250 ML Amiodarone HCl 200 mg Q12HR NG 03/07/25 22:00 Lactulose 30 ml DAILY NG 03/08/25 10:00 Examination Gen - no pallor, no icterus, no cyanosis, no extremity edema . Skin - Patients skin is warm and dry. HEENT - normocephalic, atraumatic, moist mucous membranes. Neck - no LAD, no JVD Pulmonary - B/L equal air entry with diminished breath sounds on the right, no rales, no wheezing, no stridor. cardiovascular - regular S1,S2 heard, no added sounds, no murmurs heard. peripheral pulses normal radial 2+, pedal 1+. GI - soft abdomen. Bowel sounds normoactive Neurological - Patient is nonresponsive to verbal commands but only wakes up motor responses or verbal response. laboratory and microbiology Laboratory Tests 03/07/25 10:45 Test 03/07/25 10:45 Range/Units Serum Glucose 92 74-106 mg/dL Microbiology Date/Time Source Procedure Growth Status 03/05/25 09:57 Sacrum Gram Stain - Final Resulted 03/05/25 09:57 Wound Culture - Preliminary Staphylococcus aureus Enterococcus faecalis Resulted 03/04/25 20:02 Blood Blood Culture - Preliminary NO GROWTH AFTER 48 HOURS OF INCUBATION. Resulted Problem List/Assessment/Plan Problem List/Assessment/Plan Neurology Acute on chronic metabolic encephalopathy likely due to hypernatremia/sepsis/dehydration - CT head shows central greater than cortical cerebral atrophy, chronic microvascular changes Respiratory Chest x-ray bilaterally shows hyperinflated lungs, cardiomegaly Cardiovascular Wide complex Ventricular tachycardia s/p conversion End-stage dilated cardiomyopathy Heart failure with reduced ejection fraction [id number] LVH Moderate mitral and tricuspid regurgitation [id number] pericardial effusion, no tamponade - echo done showed LVEF less than 10% - on amiodarone 200mg bid - monitor urine output - AICD interrogation done, report pending Infectious disease Sepsis likely due to sacral wound Grade 4 sacral wound - wound cultures preliminary showing growth of Staph aureus, Enterococcus species - blood cultures pending - on vancomycin and Zosyn Nephrology HERIBERTO on CKD likely due to VMN Hypernatremia, improving Hypokalemia - free water via GT - potassium replaced PUD prophylaxis: Protonix DVT prophylaxis: Enoxaparin Feeding via NG tube Goals of care discussed with the patient's [id number]. Code status: Full code- time spent was 21 mins time spent excluding procedures: 41 minutes Case discussed with Dr. Hercules Plan discussed with: Other ([id number]) My Orders My Orders Orders - DOUGLAS ARREOLA RESIDENT Procedure Category Date Status Time Free Water PHA 03/07/25 In Process 10:00 Amiodarone Tablet PHA 03/07/25 In Process (Cordarone Tablet) 22:00 Lactulose Oral PHA 03/08/25 In Process 10:00 Sodium LAB 03/07/25 Logged 16:00 Vancomycin,Random LAB 03/08/25 Verified 04:00 Creatinine LAB 03/08/25 Verified 04:00 Notify Provider NOTICE 03/07/25 Transmitted Malnutrition 14:34 Tube Feeding NOURISH 03/07/25 Transmitted 14:34 Increase Calorie NOURISH 03/07/25 Transmitted Intake 14:34 Dietary Evaluation Review Recommendations by RD: Increase Calorie Intake, Protein Supplementation Comments: Pt meets criteria for Severe Protein-Calorie Malnutrition in the setting of chronic illness based on weight loss 6kg/11% in 4 months, moderate fat depletion, and moderate muscle wasting. Nutrition Recommendation 1) TF Jevity @ 60ml/hr x 24hr (goal). Water flush 100ml Q4H if allowed, adjust PRN. TF at goal volume provides 1728 kcal, 80gm protein, 1162ml free water 2) Yash 1 pk BID 3) Vitamin C 500mg BID, zinc sulfate 220mg x 10 days, MVI w/ minerals 1 tab daily 4) Monitor NPO status, TF tolerance, lab values, weight trend, and I/O Expected Outcomes/Goals: To gain/maintain weight Wound to improve Lab values to improve Fu 2-3 days Interpretation of weight loss: >10% in 6 months Body Fat Depletion (Severe): Mod to Severe Depletion Muscle Mass (Severe): Mod to Severe Depletion Protein Calorie Malnutrition: Severe Is there a minimum of two crit: Yes Date of Service: Mar 07, 2025 Billing Provider: GENNY HERCULES MD Common Visit Codes: 67597-[id number] INP/OBS CARE(HIGH) Secondary Visit Codes: 16332-ZICHUHOD CARE PLAN 30 MINUTES DOUGLAS ARREOLA RESIDENT Mar 07, 2025 17:36 GENNY HERCULES MD Mar 09, 2025 11:54
[2025-03-07] MEDS: AMIODARONE HCL 200 MG TAB NG SCH (21:48)
[2025-03-08] VITALS (9 sets, daily range): BP systolic 100–137; BP diastolic 66–83; PULSE 58–65; RESP 16–18; TEMP 96.5–98.4; O2SAT 99–100
[2025-03-08 05:56] LABS: Hematocrit 34.8 % (36.0-46.0); Hemoglobin 11.1 g/dL (12.2-16.2); Mean Corpuscular Hemoglobin 21.6 pg (28.0-32.0); Mean Corpuscular Volume 67.8 fL (80.0-100.0); Nucleated Red Blood Cells % 0.1 %
[2025-03-08 06:14] LABS: Anion Gap 11 (5-15); Potassium 3.6 mmol/L (3.5-5.1)
[2025-03-08 06:20] LABS: BUN/Creatinine Ratio 22.9 (10.0-20.0); Blood Urea Nitrogen 22 mg/dL (9-23)
[2025-03-08 06:33] LABS: Calcium 7.8 mg/dL (8.7-10.4); Carbon Dioxide 19 mmol/L (20-31); Chloride 123 mmol/L (98-107); Glucose 173 mg/dL (74-106); Sodium 153 mmol/L (136-145)
[2025-03-08] MEDS: LACTULOSE 20Gm/30ML SOLN NG SCH (09:11)
--- NOTE | 2025-03-08 10:56 | DVHPN2 ---
Progress Note Date Seen: Mar 08, 2025 Medical Necessity Reason Pt with a Central, PICC or Fol: Yes The following are medically ne: Palacios Catheter Subjective Patient reports: No new complaints Other Systems: Patient seen and examined by myself today in follow-up Objective vital signs Vital Sign Date Time Temp Pulse Resp B/P (MAP) Pulse Ox O2 Delivery O2 Flow Rate FiO2 03/08/25 05:00 97.4 60 17 107/66 (80) 100 97.4 03/07/25 20:00 Nasal Cannula* 3 32 Total Intake and Output 03/07/25 03/07/25 03/08/25 15:00 23:00 07:00 Intake Total 100 ml 350 ml 100 ml Output Total 200 ml 151 ml Balance 100 ml 150 ml -51 ml medications Current Medications Medications Dose Ordered Sig/Roman Route Start Time Stop Time Status Last Admin Dose Admin Ondansetron HCl 4 mg Q4HP PRN IV 03/04/25 23:45 03/05/25 18:02 4 MG Enoxaparin Sodium 30 mg DAILY SC 03/05/25 10:00 03/08/25 09:11 30 MG Morphine Sulfate 1 mg Q4HP PRN IV 03/05/25 04:30 03/07/25 13:24 1 MG Vancomycin HCl 0 ml @ 0 mls/hr UD IV 03/05/25 10:45 Piperacillin Sod/ Tazobactam Sod 100 ml @ 25 mls/hr Q8HR IV 03/05/25 14:00 03/08/25 05:51 25 MLS/HR Pantoprazole Sodium 40 mg DAILY IV 03/06/25 10:00 03/08/25 09:11 40 MG Enteral Nutritional Formula 1,000 ml 30ML/HR GT 03/06/25 16:45 Purified Water 250 ml Q4HR GT 03/07/25 10:00 03/08/25 09:26 250 ML Amiodarone HCl 200 mg Q12HR NG 03/07/25 22:00 03/08/25 09:11 200 MG Lactulose 30 ml DAILY NG 03/08/25 10:00 03/08/25 09:11 30 ML Examination: LUNGS:Normal, CVS:Normal, MSK:Normal laboratory and microbiology Laboratory Tests 03/08/25 05:20 Test 03/08/25 05:20 Range/Units Serum Glucose 173 H 74-106 mg/dL Microbiology Date/Time Source Procedure Growth Status 03/05/25 09:57 Sacrum Gram Stain - Final Resulted 03/05/25 09:57 Wound Culture - Preliminary Staphylococcus aureus Enterococcus faecalis Resulted 03/04/25 20:02 Blood Blood Culture - Preliminary NO GROWTH AFTER 72 HOURS OF INCUBATION. Resulted Problem List/Assessment/Plan Problem List/Assessment/Plan Acute kidney injury in the setting of volume depletion SVT Dilated cardiomyopathy EF < 10% Hypernatremia due to dehydration Hypokalemia Recommendation renal function is improving Strict I&Os IVF D5W 100 cc/hour Avoid hypotension wound care Cardiology on the case for rate control Potassium replacement IV We will continue to follow up Plan discussed with: Patient My Orders My Orders Orders - RADHA JO MD Procedure Category Date Status Time D5w 5% (Dextrose 5%) PHA 03/08/25 Logged 11:00 Urine Sodium LAB 03/08/25 Transmitted 10:54 Urine LAB 03/08/25 Transmitted Protein/Creatinine Urine Creatinine LAB 03/08/25 Transmitted 10:54 Urinalysis LAB 03/08/25 Transmitted 10:54 Osmolality Urine LAB 03/08/25 Transmitted 10:54 Magnesium LAB 03/08/25 Transmitted 10:54 Dietary Evaluation Review Recommendations by RD: Increase Calorie Intake, Protein Supplementation Comments: Pt meets criteria for Severe Protein-Calorie Malnutrition in the setting of chronic illness based on weight loss 6kg/11% in 4 months, moderate fat depletion, and moderate muscle wasting. Nutrition Recommendation 1) TF Jevity @ 60ml/hr x 24hr (goal). Water flush 100ml Q4H if allowed, adjust PRN. TF at goal volume provides 1728 kcal, 80gm protein, 1162ml free water 2) Yash 1 pk BID 3) Vitamin C 500mg BID, zinc sulfate 220mg x 10 days, MVI w/ minerals 1 tab daily 4) Monitor NPO status, TF tolerance, lab values, weight trend, and I/O Expected Outcomes/Goals: To gain/maintain weight Wound to improve Lab values to improve Fu 2-3 days Interpretation of weight loss: >10% in 6 months Body Fat Depletion (Severe): Mod to Severe Depletion Muscle Mass (Severe): Mod to Severe Depletion Protein Calorie Malnutrition: Severe Is there a minimum of two crit: Yes RADHA JO MD Mar 08, 2025 10:56
[2025-03-08 12:18] LABS: Urine Budding Yeast MODERATE /hpf (None Seen); Urine Protein, UAD 1+ (Negative); Urine WBC Clumps PRESENT /hpf (None Seen)
[2025-03-08] MEDS: D5W 5% 1,000 ML IV SCH (12:45)
[2025-03-08] MEDS: Jevity 1.2 Cal/Fiber 1 Liter GT SCH (12:48)
--- NOTE | 2025-03-08 14:40 | DVHPNRES ---
Progress Note Date Seen: Mar 08, 2025 Resident Creating Document: DOUGLAS ARREOLA RESIDENT Medical Necessity Reason Pt with a Central, PICC or Fol: Yes The following are medically ne: Palacios Catheter Subjective Review of Systems Patient seen and examined at the bedside. Is not responsive to verbal commands but responds to calling her name out. No apparent respiratory distress on room air. Objective vital signs Vital Sign Date Time Temp Pulse Resp B/P (MAP) Pulse Ox O2 Delivery O2 Flow Rate FiO2 03/08/25 13:00 97.0 59 16 116/75 (89) 99 97.0 03/08/25 08:00 Nasal Cannula* 3 32 Total Intake and Output 03/07/25 03/07/25 03/08/25 15:00 23:00 07:00 Intake Total 100 ml 350 ml 100 ml Output Total 200 ml 151 ml Balance 100 ml 150 ml -51 ml medications Current Medications Medications Dose Ordered Sig/Roman Route Start Time Stop Time Status Last Admin Dose Admin Ondansetron HCl 4 mg Q4HP PRN IV 03/04/25 23:45 03/05/25 18:02 4 MG Enoxaparin Sodium 30 mg DAILY SC 03/05/25 10:00 03/08/25 09:11 30 MG Morphine Sulfate 1 mg Q4HP PRN IV 03/05/25 04:30 03/07/25 13:24 1 MG Vancomycin HCl 0 ml @ 0 mls/hr UD IV 03/05/25 10:45 Piperacillin Sod/ Tazobactam Sod 100 ml @ 25 mls/hr Q8HR IV 03/05/25 14:00 03/08/25 05:51 25 MLS/HR Pantoprazole Sodium 40 mg DAILY IV 03/06/25 10:00 03/08/25 09:11 40 MG Enteral Nutritional Formula 1,000 ml 30ML/HR GT 03/06/25 16:45 03/08/25 12:48 1,000 ML Purified Water 250 ml Q4HR GT 03/07/25 10:00 03/08/25 09:26 250 ML Amiodarone HCl 200 mg Q12HR NG 03/07/25 22:00 03/08/25 09:11 200 MG Lactulose 30 ml DAILY NG 03/08/25 10:00 03/08/25 09:11 30 ML Dextrose 1,000 ml @ 100 mls/hr Q10H IV 03/08/25 11:00 03/08/25 12:45 100 MLS/HR Examination Gen - no pallor, no icterus, no cyanosis, no extremity edema . Skin - Patients skin is warm and dry. HEENT - normocephalic, atraumatic, moist mucous membranes. Neck - no LAD, no JVD Pulmonary - B/L equal air entry with diminished breath sounds on the right, no rales, no wheezing, no stridor. cardiovascular - regular S1,S2 heard, no added sounds, no murmurs heard. peripheral pulses normal radial 2+, pedal 1+. GI - soft abdomen. Bowel sounds normoactive Neurological - Patient is nonresponsive to verbal commands but only wakes up motor responses or verbal response. laboratory and microbiology Laboratory Tests 03/08/25 05:20 Test 03/08/25 05:20 Range/Units Serum Glucose 173 H 74-106 mg/dL Microbiology Date/Time Source Procedure Growth Status 03/05/25 09:57 Sacrum Gram Stain - Final Complete 03/05/25 09:57 Wound Culture - Final Staphylococcus aureus Enterococcus faecalis Pseudomonas aeruginosa Complete 03/04/25 20:02 Blood Blood Culture - Preliminary NO GROWTH AFTER 72 HOURS OF INCUBATION. Resulted Problem List/Assessment/Plan Problem List/Assessment/Plan Neurology Acute on chronic metabolic encephalopathy likely due to hypernatremia/sepsis/dehydration - CT head shows central greater than cortical cerebral atrophy, chronic microvascular changes Respiratory Chest x-ray bilaterally shows hyperinflated lungs, cardiomegaly Cardiovascular Wide complex Ventricular tachycardia s/p conversion End-stage dilated cardiomyopathy Heart failure with reduced ejection fraction [id number] LVH Moderate mitral and tricuspid regurgitation Zmrkw-pp-poaipxed pericardial effusion, no tamponade - echo done showed LVEF less than 10% - on amiodarone 200mg bid - monitor urine output - AICD interrogation done, report revealing multiple sustained V-tach events x 13 since 03/03/2025 with delivered shock therapy at 41J including multiple shocks during admission today Infectious disease Sepsis likely due to sacral wound Grade 4 sacral wound - wound cultures preliminary showing growth of Staph aureus, Enterococcus species - blood cultures pending - on vancomycin and Zosyn Nephrology 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 They want to take patient on hospice and will decide further during the weekend Code status: Full code time spent excluding procedures: 38 minutes Case discussed with Dr. Bernabe Plan discussed with: Other (pastor- daughter in law, MERRY Doll) My Orders My Orders Orders - DOUGLAS ARREOLA Procedure Category Date Status Time Complete Blood Count LAB 03/09/25 Verified 04:00 Creatinine LAB 03/09/25 Verified 04:00 Vancomycin,Random LAB 03/09/25 Verified 04:00 Vancomycin Per NATHANIEL 03/08/25 In Process Pharm[facility] 09:42 Dietary Evaluation Review Recommendations by RD: Increase Calorie Intake, Protein Supplementation Comments: Pt meets criteria for Severe Protein-Calorie Malnutrition in the setting of chronic illness based on weight loss 6kg/11% in 4 months, moderate fat depletion, and moderate muscle wasting. Nutrition Recommendation 1) TF Jevity @ 60ml/hr x 24hr (goal). Water flush 100ml Q4H if allowed, adjust PRN. TF at goal volume provides 1728 kcal, 80gm protein, 1162ml free water 2) Yash 1 pk BID 3) Vitamin C 500mg BID, zinc sulfate 220mg x 10 days, MVI w/ minerals 1 tab daily 4) Monitor NPO status, TF tolerance, lab values, weight trend, and I/O Expected Outcomes/Goals: To gain/maintain weight Wound to improve Lab values to improve Fu 2-3 days Interpretation of weight loss: >10% in 6 months Body Fat Depletion (Severe): Mod to Severe Depletion Muscle Mass (Severe): Mod to Severe Depletion Protein Calorie Malnutrition: Severe Is there a minimum of two crit: Yes DOUGLAS ARREOLA RESIDENT Mar 08, 2025 14:40
[2025-03-09] VITALS (9 sets, daily range): BP systolic 115–130; BP diastolic 70–86; PULSE 59–63; RESP 14–18; TEMP 96.5–97.8; O2SAT 96–100
[2025-03-09 09:02] LABS: Hematocrit 36.6 % (36.0-46.0); Hemoglobin 11.3 g/dL (12.2-16.2); Mean Corpuscular Hemoglobin 21.3 pg (28.0-32.0); Mean Corpuscular Volume 69.0 fL (80.0-100.0); Nucleated Red Blood Cells % 0.1 %
[2025-03-09 09:09] LABS: Anion Gap 9 (5-15); Carbon Dioxide 21 mmol/L (20-31); Potassium 3.6 mmol/L (3.5-5.1)
[2025-03-09 09:11] LABS: Calcium 7.5 mg/dL (8.7-10.4); Chloride 117 mmol/L (98-107); Sodium 147 mmol/L (136-145)
[2025-03-09 09:15] LABS: BUN/Creatinine Ratio 21.7 (10.0-20.0); Blood Urea Nitrogen 15 mg/dL (9-23)
[2025-03-09 09:23] LABS: Glucose 127 mg/dL (74-106)
--- NOTE | 2025-03-09 10:10 | DVHPN2 ---
Progress Note Date Seen: Mar 09, 2025 Medical Necessity Reason Pt with a Central, PICC or Fol: Yes The following are medically ne: Palacios Catheter Subjective Patient reports: No new complaints Other Systems: Patient seen and examined by myself today in follow-up Objective vital signs Vital Sign Date Time Temp Pulse Resp B/P (MAP) Pulse Ox O2 Delivery O2 Flow Rate FiO2 03/09/25 09:00 97.1 61 16 130/80 (97) 99 97.1 03/08/25 20:01 Nasal Cannula* 3 32 Total Intake and Output 03/08/25 03/08/25 03/09/25 15:00 23:00 07:00 Intake Total 100 ml 1660 ml 1020 ml Output Total 450 ml 250 ml Balance 100 ml 1210 ml 770 ml medications Current Medications Medications Dose Ordered Sig/Roman Route Start Time Stop Time Status Last Admin Dose Admin Ondansetron HCl 4 mg Q4HP PRN IV 03/04/25 23:45 03/05/25 18:02 4 MG Enoxaparin Sodium 30 mg DAILY SC 03/05/25 10:00 03/08/25 09:11 30 MG Morphine Sulfate 1 mg Q4HP PRN IV 03/05/25 04:30 03/07/25 13:24 1 MG Vancomycin HCl 0 ml @ 0 mls/hr UD IV 03/05/25 10:45 Piperacillin Sod/ Tazobactam Sod 100 ml @ 25 mls/hr Q8HR IV 03/05/25 14:00 03/09/25 05:50 25 MLS/HR Pantoprazole Sodium 40 mg DAILY IV 03/06/25 10:00 03/08/25 09:11 40 MG Amiodarone HCl 200 mg Q12HR NG 03/07/25 22:00 03/08/25 21:34 200 MG Lactulose 30 ml DAILY NG 03/08/25 10:00 03/08/25 09:11 30 ML Dextrose 1,000 ml @ 100 mls/hr Q10H IV 03/08/25 11:00 03/09/25 06:59 100 MLS/HR Purified Water 250 ml Q4HR NG 03/09/25 10:00 Enteral Nutritional Formula 1,000 ml 30ML/HR NG 03/09/25 09:15 Examination: LUNGS:Normal, CVS:Normal, MSK:Normal laboratory and microbiology Laboratory Tests 03/09/25 08:40 Test 03/09/25 08:40 Range/Units Serum Glucose 127 H 74-106 mg/dL Microbiology Date/Time Source Procedure Growth Status 03/05/25 09:57 Sacrum Gram Stain - Final Complete 03/05/25 09:57 Wound Culture - Final Staphylococcus aureus Enterococcus faecalis Pseudomonas aeruginosa Complete 03/04/25 20:02 Blood Blood Culture - Preliminary NO GROWTH AFTER 72 HOURS OF INCUBATION. Resulted Problem List/Assessment/Plan Problem List/Assessment/Plan Acute kidney injury in the setting of volume depletion SVT Dilated cardiomyopathy EF < 10% Hypernatremia due to dehydration Hypokalemia Recommendation renal function is improving Hyponatremia appropriately on slowly resolving Strict I&Os IVF D5W 70 cc/hour Avoid hypotension wound care Cardiology on the case for rate control Potassium replacement IV We will continue to follow up Plan discussed with: Patient My Orders My Orders Orders - RADHA JO MD Procedure Category Date Status Time D5w 5% (Dextrose 5%) PHA 03/08/25 In Process 11:00 Dietary Evaluation Review Recommendations by RD: Increase Calorie Intake, Protein Supplementation Comments: Pt meets criteria for Severe Protein-Calorie Malnutrition in the setting of chronic illness based on weight loss 6kg/11% in 4 months, moderate fat depletion, and moderate muscle wasting. Nutrition Recommendation 1) TF Jevity @ 60ml/hr x 24hr (goal). Water flush 100ml Q4H if allowed, adjust PRN. TF at goal volume provides 1728 kcal, 80gm protein, 1162ml free water 2) Yash 1 pk BID 3) Vitamin C 500mg BID, zinc sulfate 220mg x 10 days, MVI w/ minerals 1 tab daily 4) Monitor NPO status, TF tolerance, lab values, weight trend, and I/O Expected Outcomes/Goals: To gain/maintain weight Wound to improve Lab values to improve Fu 2-3 days Interpretation of weight loss: >10% in 6 months Body Fat Depletion (Severe): Mod to Severe Depletion Muscle Mass (Severe): Mod to Severe Depletion Protein Calorie Malnutrition: Severe Is there a minimum of two crit: Yes RADHA JO MD Mar 09, 2025 10:10
[2025-03-09] MEDS: FREE WATER NG SCH (11:16)
[2025-03-09] MEDS: D5W 5% 1,000 ML IV SCH (11:18)
[2025-03-09] MEDS: VANCOMYCIN 750MG KIT 100 ML IV ONE (15:17)
--- NOTE | 2025-03-09 19:10 | DVHPN2 ---
[facility] Patient is seen and evaluated along with the nurse at bedside. Patient opens eyes to tactile stimuli but otherwise nonverbal. Changes from previous H/P or p: No Changes Objective Vitals Vital Signs Date Time Temp Pulse Resp B/P (MAP) Pulse Ox O2 Delivery O2 Flow Rate FiO2 03/09/25 17:00 96.5 60 14 129/86 (100) 99 96.5 03/09/25 08:20 Nasal Cannula* 3 32 Intake/Output Intake and Output 03/09/25 07:00 Intake Total 2780 ml Output Total 700 ml Balance 2080 ml Intake Oral 600 ml IV Total 800 ml Tube Feeding 1380 ml Output Urine Total 700 ml # Bowel Movements 1 Medications Current Medications Medications Dose Ordered Sig/Roman Route Start Time Stop Time Status Last Admin Dose Admin Ondansetron HCl 4 mg Q4HP PRN IV 03/04/25 23:45 03/05/25 18:02 4 MG Enoxaparin Sodium 30 mg DAILY SC 03/05/25 10:00 03/09/25 11:18 30 MG Morphine Sulfate 1 mg Q4HP PRN IV 03/05/25 04:30 03/07/25 13:24 1 MG Vancomycin HCl 0 ml @ 0 mls/hr UD IV 03/05/25 10:45 Piperacillin Sod/ Tazobactam Sod 100 ml @ 25 mls/hr Q8HR IV 03/05/25 14:00 03/09/25 15:11 25 MLS/HR Pantoprazole Sodium 40 mg DAILY IV 03/06/25 10:00 03/09/25 11:16 40 MG Amiodarone HCl 200 mg Q12HR NG 03/07/25 22:00 03/09/25 11:17 200 MG Lactulose 30 ml DAILY NG 03/08/25 10:00 03/08/25 09:11 30 ML Purified Water 250 ml Q4HR NG 03/09/25 10:00 03/09/25 18:41 250 ML Enteral Nutritional Formula 1,000 ml 30ML/HR NG 03/09/25 09:15 Dextrose 1,000 ml @ 60 mls/hr [id number] IV 03/09/25 10:15 03/09/25 11:18 60 MLS/HR Laboratory Results Laboratory Tests 03/09/25 08:40 Chemistry Test 03/09/25 08:40 Calcium Level 7.5 mg/dL (8.7-10.4) L Urinalysis Test 03/04/25 20:55 03/08/25 10:45 Urine Amorphous Crystals Few /hpf (None Seen) Urine Hyaline Casts Few /lpf (0 - 2) Urine Color Yellow (Yellow) Urine Clarity Ex.turbid (Clear) Urine pH 5.5 (5.0-9.0) Urine Specific [place] 1.035 (1.001-1.035) Urine Protein 1+ (Negative) H Urine Ketones Negative (Negative) Urine Blood Negative /uL (Negative) Urine Nitrite Negative (Negative) Urine Bilirubin Negative (Negative) Urine Urobilinogen Normal mg/dL (Negative) Urine Leukocyte Esterase 3+ /uL (Negative) Urine RBC 44 /hpf (0 - 4) Urine WBC Clumps Present /hpf (None Seen) Urine Microscopic WBC 63 /HPF (0-5) H Urine Squamous Epithelial Cells Few /hpf (<5) Urine Bacteria None seen /hpf (None Seen) Urine Mucus Few (None Seen) Urine Yeast (Budding) Moderate /hpf (None Seen) Urine Osmolality 829 mOsm/kg Urine Creatinine 86.00 mg/dL (30.0-125.0) Urine Sodium 26 mmol/L (40-220) L Urine Glucose Normal mg/dL (Normal) Microbiology Microbiology Date/Time Source Procedure Growth Status 03/08/25 10:45 Voided Urine Urine Culture - Preliminary Resulted 03/05/25 09:57 Sacrum Gram Stain - Final Complete 03/05/25 09:57 Wound Culture - Final Staphylococcus aureus Enterococcus faecalis Pseudomonas aeruginosa Complete 03/04/25 20:02 Blood Blood Culture - Preliminary NO GROWTH AFTER 72 HOURS OF INCUBATION. 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 Patient is getting wound care. Continue current empiric broad-spectrum antibiotic. Continue tube feeds. Patient appears appropriate candidate for hospice. Apparently hospice was relocated. Plan is to have family meeting on Tuesday to discuss poor prognosis and to consider hospice once again. Discussed with the nurse at bedside DVT regarding care plan. No changes to present management. Plan discussed with: Other Date of Service: Mar 09, 2025 Billing Provider: ADE ARNOLD MD Common Visit Codes: [id number] INP/OBS CARE(MOD) ADE ARNOLD MD Mar 09, 2025 19:10
[2025-03-10] VITALS (9 sets, daily range): BP systolic 126–152; BP diastolic 65–100; PULSE 60–63; RESP 14–18; TEMP 96.7–99; O2SAT 95–100
--- NOTE | 2025-03-10 10:50 | DVHPN2 ---
Progress Note Date Seen: Mar 10, 2025 Medical Necessity Reason Pt with a Central, PICC or Fol: Yes The following are medically ne: Palacios Catheter Subjective Patient reports: No new complaints Other Systems: Patient seen and examined by myself today in follow-up Objective vital signs Vital Sign Date Time Temp Pulse Resp B/P (MAP) Pulse Ox O2 Delivery O2 Flow Rate FiO2 03/10/25 09:00 96.8 60 16 129/86 (100) 97 96.8 03/09/25 20:00 Nasal Cannula* 3 32 Total Intake and Output 03/09/25 03/09/25 03/10/25 15:00 23:00 07:00 Intake Total 520 ml 100 ml Output Total 300 ml 850 ml Balance 220 ml -750 ml medications Current Medications Medications Dose Ordered Sig/Roman Route Start Time Stop Time Status Last Admin Dose Admin Ondansetron HCl 4 mg Q4HP PRN IV 03/04/25 23:45 03/05/25 18:02 4 MG Enoxaparin Sodium 30 mg DAILY SC 03/05/25 10:00 03/09/25 11:18 30 MG Morphine Sulfate 1 mg Q4HP PRN IV 03/05/25 04:30 03/07/25 13:24 1 MG Vancomycin HCl 0 ml @ 0 mls/hr UD IV 03/05/25 10:45 Piperacillin Sod/ Tazobactam Sod 100 ml @ 25 mls/hr Q8HR IV 03/05/25 14:00 03/09/25 22:14 25 MLS/HR Pantoprazole Sodium 40 mg DAILY IV 03/06/25 10:00 03/09/25 11:16 40 MG Amiodarone HCl 200 mg Q12HR NG 03/07/25 22:00 03/09/25 21:59 200 MG Lactulose 30 ml DAILY NG 03/08/25 10:00 03/08/25 09:11 30 ML Purified Water 250 ml Q4HR NG 03/09/25 10:00 03/10/25 06:05 250 ML Enteral Nutritional Formula 1,000 ml 30ML/HR NG 03/09/25 09:15 Dextrose 1,000 ml @ 60 mls/hr [id number] IV 03/09/25 10:15 03/10/25 02:18 60 MLS/HR Examination: LUNGS:Normal, CVS:Normal, MSK:Normal laboratory and microbiology Laboratory Tests 03/10/25 06:45 03/09/25 08:40 Test 03/09/25 08:40 Range/Units Serum Glucose 127 H 74-106 mg/dL Microbiology Date/Time Source Procedure Growth Status 03/08/25 10:45 Voided Urine Urine Culture - Preliminary Resulted 03/05/25 09:57 Sacrum Gram Stain - Final Complete 03/05/25 09:57 Wound Culture - Final Staphylococcus aureus Enterococcus faecalis Pseudomonas aeruginosa Complete 03/04/25 20:02 Blood Blood Culture - Final NO GROWTH AFTER 5 DAYS OF INCUBATION. Complete Problem List/Assessment/Plan Problem List/Assessment/Plan Acute kidney injury in the setting of volume depletion SVT Dilated cardiomyopathy EF < 10% Hypernatremia due to dehydration Hypokalemia Recommendation renal function normalized Hyponatremia appropriately on slowly resolving Strict I&Os IVF D5W 70 cc/hour Avoid hypotension wound care Cardiology on the case for rate control Potassium replacement IV I will sign off this case, please reconsult as needed Thank you for the kind Plan discussed with: Patient Dietary Evaluation Review Recommendations by RD: Increase Calorie Intake, Protein Supplementation Comments: Pt meets criteria for Severe Protein-Calorie Malnutrition in the setting of chronic illness based on weight loss 6kg/11% in 4 months, moderate fat depletion, and moderate muscle wasting. Nutrition Recommendation 1) TF Jevity @ 60ml/hr x 24hr (goal). Water flush 100ml Q4H if allowed, adjust PRN. TF at goal volume provides 1728 kcal, 80gm protein, 1162ml free water 2) Yash 1 pk BID 3) Vitamin C 500mg BID, zinc sulfate 220mg x 10 days, MVI w/ minerals 1 tab daily 4) Monitor NPO status, TF tolerance, lab values, weight trend, and I/O Expected Outcomes/Goals: To gain/maintain weight Wound to improve Lab values to improve Fu 2-3 days Interpretation of weight loss: >10% in 6 months Body Fat Depletion (Severe): Mod to Severe Depletion Muscle Mass (Severe): Mod to Severe Depletion Protein Calorie Malnutrition: Severe Is there a minimum of two crit: Yes RADHA JO MD Mar 10, 2025 10:50
[2025-03-10] MEDS: Jevity 1.2 Cal/Fiber 1 Liter NG SCH (13:38)
[2025-03-10 14:58] LABS: Hematocrit 43.1 % (36.0-46.0); Hemoglobin 13.5 g/dL (12.2-16.2); Mean Corpuscular Hemoglobin 21.5 pg (28.0-32.0); Mean Corpuscular Volume 68.6 fL (80.0-100.0); Nucleated Red Blood Cells % 0.1 %
[2025-03-10] MEDS: VANCOMYCIN 1GM/250ML KIT 250 ML IV SCH (15:00)
--- NOTE | 2025-03-10 17:24 | DVHPN2 ---
[facility] No changes in [facility] clinical condition. Per nurse patient is having a difficult IV access for continuation of IV antibiotics. Changes from previous H/P or p: No Changes Objective Vitals Vital Signs Date Time Temp Pulse Resp B/P (MAP) Pulse Ox O2 Delivery O2 Flow Rate FiO2 03/10/25 12:22 98.9 61 18 147/91 (109) 100 98.9 03/10/25 08:30 Nasal Cannula* 3 32 Intake/Output Intake and Output 03/10/25 07:00 Intake Total 620 ml Output Total 1150 ml Balance -530 ml IV Total 620 ml Output Urine Total 1150 ml # Bowel Movements 3 Exam Opens eyes for tactile stimuli but remained nonverbal. HEENT neck supple no JVD. Heart regular rate and rhythm S1-S2. Lungs fair air movement poor inspiratory effort. No wheezing. Abdomen soft positive bowel sounds nontender. Extremities positive pulses Medications Current Medications Medications Dose Ordered Sig/Roman Route Start Time Stop Time Status Last Admin Dose Admin Ondansetron HCl 4 mg Q4HP PRN IV 03/04/25 23:45 03/05/25 18:02 4 MG Enoxaparin Sodium 30 mg DAILY SC 03/05/25 10:00 03/10/25 11:02 30 MG Morphine Sulfate 1 mg Q4HP PRN IV 03/05/25 04:30 03/07/25 13:24 1 MG Vancomycin HCl 0 ml @ 0 mls/hr UD IV 03/05/25 10:45 Piperacillin Sod/ Tazobactam Sod 100 ml @ 25 mls/hr Q8HR IV 03/05/25 14:00 03/10/25 14:49 25 MLS/HR Pantoprazole Sodium 40 mg DAILY IV 03/06/25 10:00 03/10/25 11:00 40 MG Amiodarone HCl 200 mg Q12HR NG 03/07/25 22:00 03/10/25 11:02 200 MG Lactulose 30 ml DAILY NG 03/08/25 10:00 03/08/25 09:11 30 ML Purified Water 250 ml Q4HR NG 03/09/25 10:00 03/10/25 14:21 250 ML Enteral Nutritional Formula 1,000 ml 30ML/HR NG 03/09/25 09:15 03/10/25 13:38 1,000 ML Dextrose 1,000 ml @ 60 mls/hr [id number] IV 03/09/25 10:15 03/10/25 02:18 60 MLS/HR Vancomycin HCl 250 ml @ 200 mls/hr DAILY@1500 IV 03/10/25 15:00 Laboratory Results Laboratory Tests 03/09/25 08:40 03/10/25 06:45 03/10/25 14:42 Urinalysis Test 03/04/25 20:55 03/08/25 10:45 Urine Amorphous Crystals Few /hpf (None Seen) Urine Hyaline Casts Few /lpf (0 - 2) Urine Color Yellow (Yellow) Urine Clarity Ex.turbid (Clear) Urine pH 5.5 (5.0-9.0) Urine Specific [place] 1.035 (1.001-1.035) Urine Protein 1+ (Negative) H Urine Ketones Negative (Negative) Urine Blood Negative /uL (Negative) Urine Nitrite Negative (Negative) Urine Bilirubin Negative (Negative) Urine Urobilinogen Normal mg/dL (Negative) Urine Leukocyte Esterase 3+ /uL (Negative) Urine RBC 44 /hpf (0 - 4) Urine WBC Clumps Present /hpf (None Seen) Urine Microscopic WBC 63 /HPF (0-5) H Urine Squamous Epithelial Cells Few /hpf (<5) Urine Bacteria None seen /hpf (None Seen) Urine Mucus Few (None Seen) Urine Yeast (Budding) Moderate /hpf (None Seen) Urine Osmolality 829 mOsm/kg Urine Creatinine 86.00 mg/dL (30.0-125.0) Urine Sodium 26 mmol/L (40-220) L Urine Glucose Normal mg/dL (Normal) Microbiology Microbiology Date/Time Source Procedure Growth Status 03/08/25 10:45 Voided Urine Urine Culture - Preliminary Resulted 03/05/25 09:57 Sacrum Gram Stain - Final Complete 03/05/25 09:57 Wound Culture - Final Staphylococcus aureus Enterococcus faecalis Pseudomonas aeruginosa Complete 03/04/25 20:02 Blood Blood Culture - Final NO GROWTH AFTER 5 DAYS OF INCUBATION. 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 Remains clinically stable. Patient is getting wound care. Continue current empiric broad-spectrum antibiotic. Continue tube feeds. Patient appears appropriate candidate for hospice. Apparently hospice was revocated. Plan is to have family meeting on Tuesday to discuss poor prognosis and to consider hospice once again. Discussed with the nurse at bedside DVT regarding care plan. No changes to present management. Plan discussed with: Other My Orders Orders - ADE ARNOLD MD Procedure Category Date Status Time Insert Midline ORDERS 03/10/25 Transmitted 09:09 Date of Service: Mar 10, 2025 Billing Provider: ADE ARNOLD MD Common Visit Codes: [id number] INP/OBS CARE(MOD) ADE ARNOLD MD Mar 10, 2025 17:24
[2025-03-11] VITALS (8 sets, daily range): BP systolic 142–161; BP diastolic 88–96; PULSE 60–67; RESP 15–20; TEMP 97.3–98.6; O2SAT 96–100
--- NOTE | 2025-03-11 11:14 | DVHPN2 ---
Progress Note Date Seen: Mar 11, 2025 Medical Necessity Reason Pt with a Central, PICC or Fol: Yes The following are medically ne: Palacios Catheter Subjective Patient reports: No new complaints Review of Systems: HEENT:Normal, CVS:Normal, RESPIRATORY:Normal, GI:Normal, :Normal, MSK:Normal, NEURO:Normal Objective vital signs Vital Sign Date Time Temp Pulse Resp B/P (MAP) Pulse Ox O2 Delivery O2 Flow Rate FiO2 03/11/25 09:00 98.1 65 16 151/96 (114) 96 98.1 03/11/25 08:00 Nasal Cannula* 3 32 Total Intake and Output 03/10/25 03/10/25 03/11/25 15:00 23:00 07:00 Intake Total 275 ml 500 ml Output Total 900 ml 450 ml Balance -625 ml 50 ml medications Current Medications Medications Dose Ordered Sig/Roman Route Start Time Stop Time Status Last Admin Dose Admin Ondansetron HCl 4 mg Q4HP PRN IV 03/04/25 23:45 03/05/25 18:02 4 MG Enoxaparin Sodium 30 mg DAILY SC 03/05/25 10:00 03/11/25 10:42 30 MG Morphine Sulfate 1 mg Q4HP PRN IV 03/05/25 04:30 03/07/25 13:24 1 MG Vancomycin HCl 0 ml @ 0 mls/hr UD IV 03/05/25 10:45 Piperacillin Sod/ Tazobactam Sod 100 ml @ 25 mls/hr Q8HR IV 03/05/25 14:00 03/10/25 14:49 25 MLS/HR Pantoprazole Sodium 40 mg DAILY IV 03/06/25 10:00 03/10/25 11:00 40 MG Amiodarone HCl 200 mg Q12HR NG 03/07/25 22:00 03/11/25 10:42 200 MG Lactulose 30 ml DAILY NG 03/08/25 10:00 03/11/25 10:43 30 ML Purified Water 250 ml Q4HR NG 03/09/25 10:00 03/11/25 10:17 250 ML Enteral Nutritional Formula 1,000 ml 30ML/HR NG 03/09/25 09:15 03/10/25 13:38 1,000 ML Examination: GENERAL:Normal, HEENT:Normal, NECK:Normal, LUNGS:Normal, LUNGS:Abnormal (on oxygen), CVS:Normal, ABDOMEN:Normal, MSK:Normal, MSK:Abnormal (decub ulcer), SKIN:Normal, NEURO:Normal, :Normal laboratory and microbiology Laboratory Tests 03/10/25 14:42 03/10/25 06:45 03/09/25 08:40 Test 03/09/25 08:40 Range/Units Serum Glucose 127 H 74-106 mg/dL Microbiology Date/Time Source Procedure Growth Status 03/08/25 10:45 Voided Urine Urine Culture - Preliminary Presumptive Caroline albicans Resulted 03/05/25 09:57 Sacrum Gram Stain - Final Complete 03/05/25 09:57 Wound Culture - Final Staphylococcus aureus Enterococcus faecalis Pseudomonas aeruginosa Complete 03/04/25 20:02 Blood Blood Culture - Final NO GROWTH AFTER 5 DAYS OF INCUBATION. Complete Problem List/Assessment/Plan Problem List/Assessment/Plan Neurology Acute on chronic metabolic encephalopathy likely due to hypernatremia/sepsis/dehydration - CT head shows central greater than cortical cerebral atrophy, chronic microvascular changes Respiratory Chest x-ray bilaterally shows hyperinflated lungs, cardiomegaly Cardiovascular Wide complex Ventricular tachycardia s/p conversion End-stage dilated cardiomyopathy Heart failure with reduced ejection fraction Iwyzmpmk-zl-rcefwn LVH Moderate mitral and tricuspid regurgitation Jynhw-qb-rkvzwgzd pericardial effusion, no tamponade - echo done showed LVEF less than 10% - on amiodarone 200mg bid - monitor urine output - AICD interrogation done, report pending Infectious disease Sepsis likely due to sacral wound Grade 4 sacral wound - wound cultures preliminary showing growth of Staph aureus, Enterococcus species - blood cultures pending - on vancomycin and Zosyn Nephrology 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 Code status: Full code- time spent was 21 mins will arrange family meeting Case discussed with Dr. Greg Farley discussed with: Patient My Orders My Orders Orders - GENNY HERCULES MD Procedure Category Date Status Time Complete Blood Count LAB 03/12/25 Verified 06:00 Comprehensive LAB 03/12/25 Verified Metabolic Panel 06:00 Chest Portable XY 03/12/25 Verified 06:00 Dietary Evaluation Review Recommendations by RD: Increase Calorie Intake, Protein Supplementation Comments: Pt meets criteria for Severe Protein-Calorie Malnutrition in the setting of chronic illness based on weight loss 6kg/11% in 4 months, moderate fat depletion, and moderate muscle wasting. Nutrition Recommendation 1) TF Jevity @ 60ml/hr x 24hr (goal). Water flush 100ml Q4H if allowed, adjust PRN. TF at goal volume provides 1728 kcal, 80gm protein, 1162ml free water 2) Yash 1 pk BID 3) Vitamin C 500mg BID, zinc sulfate 220mg x 10 days, MVI w/ minerals 1 tab daily 4) Monitor NPO status, TF tolerance, lab values, weight trend, and I/O Expected Outcomes/Goals: To gain/maintain weight Wound to improve Lab values to improve Fu 2-3 days Interpretation of weight loss: >10% in 6 months Body Fat Depletion (Severe): Mod to Severe Depletion Muscle Mass (Severe): Mod to Severe Depletion Protein Calorie Malnutrition: Severe Is there a minimum of two crit: Yes Date of Service: Mar 11, 2025 Billing Provider: GENNY HERCULES MD Common Visit Codes: [id number] INP/OBS CARE(HIGH) Secondary Visit Codes: [id number] CARE PLAN 30 MINUTES GENNY HERCULES MD Mar 11, 2025 11:14
[2025-03-11] MEDS ORDERED: VANCOMYCIN 1GM/250ML KIT 250 ML IV ONE (15:00)
[2025-03-11 15:09] LABS: Hematocrit 42.8 % (36.0-46.0); Hemoglobin 13.5 g/dL (12.2-16.2); Mean Corpuscular Hemoglobin 21.3 pg (28.0-32.0); Mean Corpuscular Volume 67.5 fL (80.0-100.0); Nucleated Red Blood Cells % 0.0 %
[2025-03-11] MEDS: VANCOMYCIN 1GM/250ML KIT 250 ML IV ONE (20:09)
[2025-03-12] VITALS (8 sets, daily range): BP systolic 125–151; BP diastolic 65–98; PULSE 64–72; RESP 16–17; TEMP 97.6–98.6; O2SAT 98–100
--- NOTE | 2025-03-12 07:57 | DVH ---
INDICATION: resp failure TECHNIQUE: Single frontal view of the chest was obtained COMPARISON: XY CHEST PORTABLE on DOS: 03/06/25, XY CHEST XRAY 1 VIEW on DOS: 03/05/25, XY CHEST PORTABL E on DOS: 03/04/25, XY CHEST PORTABLE on DOS: 11/06/24, XY CHEST PORTABLE on DOS: 11/03/24, XY CHEST POR TABLE on DOS: 03/06/25 FINDINGS: Lines and Tubes: Enteric catheter courses below the level of the diaphragm and terminates just dist al to the level of the gastroesophageal junction. Left anterior chest wall cardiac pacing device note d. Lungs: Clear Pleura: No effusion. No pneumothorax. Cardiomediastinal contours: Cardiomegaly. Bones: Unremarkable IMPRESSION: 1. No acute disease. 2. Cardiomegaly. 3. Enteric catheter tip just distal to the level of the gastroesophageal junction.
--- NOTE | 2025-03-12 11:06 | DVHPN2 ---
Progress Note Date Seen: Mar 12, 2025 Medical Necessity Reason Pt with a Central, PICC or Fol: Yes The following are medically ne: Dick Catheter Reason for dick catheter: Bladder Retention/Obstruc Subjective Patient reports: No new complaints Review of Systems: HEENT:Normal, CVS:Normal, RESPIRATORY:Normal, GI:Normal, :Normal, MSK:Normal, NEURO:Normal Objective vital signs Vital Sign Date Time Temp Pulse Resp B/P (MAP) Pulse Ox O2 Delivery O2 Flow Rate FiO2 03/12/25 09:00 97.8 67 16 151/98 (115) 98 97.8 03/11/25 20:00 Nasal Cannula* 3 32 Total Intake and Output 03/11/25 03/11/25 03/12/25 15:00 23:00 07:00 Intake Total 500 ml 350 ml Output Total 300 ml 100 ml Balance 200 ml 250 ml medications Current Medications Medications Dose Ordered Sig/Roman Route Start Time Stop Time Status Last Admin Dose Admin Ondansetron HCl 4 mg Q4HP PRN IV 03/04/25 23:45 03/05/25 18:02 4 MG Enoxaparin Sodium 30 mg DAILY SC 03/05/25 10:00 03/12/25 10:13 30 MG Morphine Sulfate 1 mg Q4HP PRN IV 03/05/25 04:30 03/07/25 13:24 1 MG Vancomycin HCl 0 ml @ 0 mls/hr UD IV 03/05/25 10:45 Piperacillin Sod/ Tazobactam Sod 100 ml @ 25 mls/hr Q8HR IV 03/05/25 14:00 03/12/25 05:43 25 MLS/HR Pantoprazole Sodium 40 mg DAILY IV 03/06/25 10:00 03/12/25 10:12 40 MG Amiodarone HCl 200 mg Q12HR NG 03/07/25 22:00 03/12/25 10:12 200 MG Lactulose 30 ml DAILY NG 03/08/25 10:00 03/12/25 10:12 30 ML Purified Water 250 ml Q4HR NG 03/09/25 10:00 03/12/25 10:13 250 ML Enteral Nutritional Formula 1,000 ml 30ML/HR NG 03/09/25 09:15 03/10/25 13:38 1,000 ML Examination: GENERAL:Normal, HEENT:Normal, NECK:Normal, LUNGS:Normal, CVS:Normal, ABDOMEN:Normal, MSK:Normal, MSK:Abnormal (decub ulcer), SKIN:Normal, NEURO:Normal, :Normal laboratory and microbiology Laboratory Tests 03/11/25 14:37 03/09/25 08:40 Test 03/09/25 08:40 Range/Units Serum Glucose 127 H 74-106 mg/dL Microbiology Date/Time Source Procedure Growth Status 03/08/25 10:45 Voided Urine Urine Culture - Preliminary Presumptive Caroline albicans Resulted 03/05/25 09:57 Sacrum Gram Stain - Final Complete 03/05/25 09:57 Wound Culture - Final Staphylococcus aureus Enterococcus faecalis Pseudomonas aeruginosa Complete 03/04/25 20:02 Blood Blood Culture - Final NO GROWTH AFTER 5 DAYS OF INCUBATION. Complete Problem List/Assessment/Plan Problem List/Assessment/Plan Neurology Acute on chronic metabolic encephalopathy likely due to hypernatremia/sepsis/dehydration - CT head shows central greater than cortical cerebral atrophy, chronic microvascular changes Respiratory Chest x-ray bilaterally shows hyperinflated lungs, cardiomegaly Cardiovascular Wide complex Ventricular tachycardia s/p conversion End-stage dilated cardiomyopathy Heart failure with reduced ejection fraction Sqhjxrtc-ni-oepyvd LVH Moderate mitral and tricuspid regurgitation Gzxts-we-edhnware pericardial effusion, no tamponade - echo done showed LVEF less than 10% - on amiodarone 200mg bid - monitor urine output - AICD interrogation done, report pending Infectious disease Sepsis likely due to sacral wound Grade 4 sacral wound - wound cultures preliminary showing growth of Staph aureus, Enterococcus species - blood cultures pending - on vancomycin and Zosyn Nephrology 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 Code status: Full code- time spent was 21 mins LONG DISCUSSION WITH FAMILY EXPLAINED POOR PROGNOSIS AND OPTIONS OF TREATMENT- WISH PEG PLACEMENT Plan discussed with: Daughter, Son My Orders My Orders Orders - GENNY HERCULES MD Procedure Category Date Status Time Complete Blood Count LAB 03/12/25 Logged 06:00 Comprehensive LAB 03/12/25 Logged Metabolic Panel 06:00 Chest Portable XY 03/12/25 Resulted 06:00 Free Water PHA 03/12/25 Verified 12:00 * Gi D[facility] [employer] CONS 03/12/25 Verified 11:02 Furosemide Injection PHA 03/12/25 Verified (Lasix Injection) 11:15 Lisinopril Tablet PHA 03/12/25 Verified (Zestril Tablet) 11:15 Lisinopril Tablet PHA 03/13/25 Verified (Zestril Tablet) 10:00 Basic Metabolic Panel LAB 03/13/25 Verified 06:00 Complete Blood Count LAB 03/13/25 Verified 06:00 Dietary Evaluation Review Recommendations by RD: Increase Calorie Intake, Protein Supplementation Comments: Pt meets criteria for Severe Protein-Calorie Malnutrition in the setting of chronic illness based on weight loss 6kg/11% in 4 months, moderate fat depletion, and moderate muscle wasting. Nutrition Recommendation 1) TF Jevity @ 60ml/hr x 24hr (goal). Water flush 100ml Q4H if allowed, adjust PRN. TF at goal volume provides 1728 kcal, 80gm protein, 1162ml free water 2) Yash 1 pk BID 3) Vitamin C 500mg BID, zinc sulfate 220mg x 10 days, MVI w/ minerals 1 tab daily 4) Monitor NPO status, TF tolerance, lab values, weight trend, and I/O Expected Outcomes/Goals: To gain/maintain weight Wound to improve Lab values to improve Fu 2-3 days Interpretation of weight loss: >10% in 6 months Body Fat Depletion (Severe): Mod to Severe Depletion Muscle Mass (Severe): Mod to Severe Depletion Protein Calorie Malnutrition: Severe Is there a minimum of two crit: Yes Date of Service: Mar 12, 2025 Billing Provider: GENNY HERCULES MD Common Visit Codes: [id number] INP/OBS CARE(HIGH) Secondary Visit Codes: [id number] CARE PLAN 30 MINUTES GENNY HERCULES MD Mar 12, 2025 11:06
[2025-03-12] MEDS: LISINOPRIL 5 MG TAB PO ONE (11:15)
[2025-03-12] MEDS: FREE WATER NG SCH (12:11)
[2025-03-12 14:03] LABS: Alanine Aminotransferase 18 U/L (7-40); Albumin 3.2 g/dL (3.2-4.8); Alkaline Phosphatase 83 U/L (46-116); Anion Gap 10 (5-15); BUN/Creatinine Ratio 14.8 (10.0-20.0); Blood Urea Nitrogen 9 mg/dL (9-23); Carbon Dioxide 23 mmol/L (20-31); Potassium 3.7 mmol/L (3.5-5.1); Sodium 145 mmol/L (136-145); Total Protein 5.9 g/dL (5.7-8.2)
--- NOTE | 2025-03-12 14:06 | DVHINCON2 ---
GI Consult Consult Note GI consult note Date of Consultation: 03/12/2025 Chief Complaint: Peg placement Referring Physician: Dr. Garza H&P: 84-year-old female admitted with altered mental status. Patient is hospice revoked. Patient has dementia. History from Dr. Garza, chart, and telephone conversation with Brenna Gallagher at [phone]. Patient was getting progressively weak and this prompted the family to bring her into the hospital. Also patient was having difficulty swallowing. Patient on NG tube feedings which has currently been held due to aspiration risk Past Medical History: Dementia, High Lipids, HTN Past Surgical History: Bi-V ICD implantation (September 28, 2017) Social History: NO smoking, drinking ETOH and use of illegal drugs. Lives at home recent hospice care Family History: Unknown Review of Systems: As above Physical exam: General: NAD, patient is awake Chest: lung borja clear to auscultation Heart: RRR, no murmur Abdomen: non-distended, no tenderness to palpation, +BS Labs: 03/09/25 08:40 Test 03/09/25 08:40 Range/Units Serum Glucose 127 H 74-106 mg/dL Microbiology Date/Time Source Procedure Growth Status 03/08/25 10:45 Voided Urine Urine Culture - Preliminary Presumptive Caroline albicans Resulted 03/05/25 09:57 Sacrum Gram Stain - Final Complete 03/05/25 09:57 Wound Culture - Final Staphylococcus aureus Enterococcus faecalis Pseudomonas aeruginosa Complete 03/04/25 20:02 Blood Blood Culture - Final NO GROWTH AFTER 5 DAYS OF INCUBATION. Complete Imaging: Chest x-ray IMPRESSION: 1. No acute disease. 2. Cardiomegaly. 3. Enteric catheter tip just distal to the level of the gastroesophageal junction. Assessment: Dysphagia Acute on chronic metabolic encephalopathy Sepsis End-stage dilated cardiomyopathy Heart failure with ejection fraction less than 10% AICD Plan: Discussed with Dr. López Request for cardiac clearance for possible EGD with PEG placement Anesthesiology consult possible procedure Lengthy discussion with Brenna by telephone conversation regarding the procedure, and sedation, and risks benefits and alternatives. Family is agreeable and we will wait to see if patient will be cleared for any procedures Discussed plan with Dr. Garza Thank you for this consult Date of Service: Mar 12, 2025 Billing Provider: INOCENTE TONY Common Visit Codes: CONSULT ONLY Consultation Codes: [id number] CONSULT <60MIN INOCENTE TONY Mar 12, 2025 14:06
[2025-03-12 14:07] LABS: Bilirubin, Total 0.3 mg/dL (0.2-1.0); Calcium 8.3 mg/dL (8.7-10.4); Chloride 112 mmol/L (98-107); Glucose 107 mg/dL (74-106)
[2025-03-12] MEDS: LISINOPRIL 5 MG TAB NG ONE (15:30)
[2025-03-12] MEDS: FUROSEMIDE 20 MG/2 ML VIAL IV ONE (15:30)
[2025-03-12] MEDS ORDERED: VANCOMYCIN 500mg/100mL 100 ML IV ONE (16:00)
--- NOTE | 2025-03-12 16:05 | DVHPN2 ---
[facility]ILL[facility]ARY [facility] 03/12/25 1605: Consult Progress Note Date Seen: Mar 12, 2025 Subjective Other Systems: Exam deferred, updated note for cardiac risk stratification. Objective vital signs Vital Sign Date Time Temp Pulse Resp B/P (MAP) Pulse Ox O2 Delivery O2 Flow Rate FiO2 03/12/25 15:30 125/84 03/12/25 13:00 97.8 71 16 100 97.8 03/12/25 08:00 Nasal Cannula* 3 32 Total Intake and Output 03/11/25 03/11/25 03/12/25 14:59 22:59 06:59 Intake Total 500 ml 350 ml Output Total 300 ml 100 ml Balance 200 ml 250 ml medications Current Medications Medications Dose Ordered Sig/Roman Route Start Time Stop Time Status Last Admin Dose Admin Ondansetron HCl 4 mg Q4HP PRN IV 03/04/25 23:45 03/05/25 18:02 4 MG Enoxaparin Sodium 30 mg DAILY SC 03/05/25 10:00 03/12/25 10:13 30 MG Morphine Sulfate 1 mg Q4HP PRN IV 03/05/25 04:30 03/07/25 13:24 1 MG Vancomycin HCl 0 ml @ 0 mls/hr UD IV 03/05/25 10:45 Piperacillin Sod/ Tazobactam Sod 100 ml @ 25 mls/hr Q8HR IV 03/05/25 14:00 03/12/25 15:30 25 MLS/HR Pantoprazole Sodium 40 mg DAILY IV 03/06/25 10:00 03/12/25 10:12 40 MG Amiodarone HCl 200 mg Q12HR NG 03/07/25 22:00 03/12/25 10:12 200 MG Lactulose 30 ml DAILY NG 03/08/25 10:00 03/12/25 10:12 30 ML Enteral Nutritional Formula 1,000 ml 30ML/HR NG 03/09/25 09:15 03/10/25 13:38 1,000 ML Purified Water 200 ml Q6HR NG 03/12/25 12:00 03/12/25 12:11 200 ML Lisinopril 10 mg DAILY PO 03/13/25 10:00 Nystatin 1 applic BID TOP 03/12/25 22:00 UNV laboratory and microbiology Laboratory Tests 03/12/25 13:35 Test 03/12/25 13:35 Range/Units Serum Glucose 107 H 74-106 mg/dL Problem List/Assessment/Plan Problem List/Assessment/Plan Preprocedural cardiovascular examination End-stage dilated cardiomyopathy, NYHA Class IV Presence of Bi-Ventricular ICD ([employer]) 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 Rowell) Transthoracic echocardiogram revealed LVEF <10%. Bi-Ventricular ICD interrogation completed revealing multiple sustained V-tach events x 13 since 03/03/2025 with delivered shock therapy at 41J including multiple shocks during admission today. Agree with antiarrhythmic therapy, amiodarone. Consider beta- hetal initiation. Replete electrolytes as necessary, K>4 and Mg>2. Suggest discussing goals of care with family, if decision is to continue to reestablish hospice care consider deactivating ICD device. Very poor prognosis. Cardiology will continue care on as needed basis. Kindly call with any questions or concerns. Thank you for allowing us to participate in this patient's care. Cardiac risk stratification: Revised cardiac risk index (Brian criteria): 5.0% risk of , [place] or cardiac arrest. Per Cardiology standpoint, the patient is at a moderate to high-risk for moderate-risk surgery. This medical document was created using an electronic medical record system with voice recognition software and computerized dictation system. Although this document has been carefully reviewed, there might still be some phonetic and typographical errors. Occasional wrong-word or ``sound-alike substitutions may have occurred due to the inherent limitations of voice recognition software. These areas are purely typographical due to imperfections of the software programs and do not reflect any compromise in the patient's medical care. Please read the chart carefully and recognize, using context, where these substitutions have occurred. Plan discussed with: Other Dietary Evaluation Review Recommendations by RD: Increase Calorie Intake, Protein Supplementation Comments: Pt meets criteria for Severe Protein-Calorie Malnutrition in the setting of chronic illness based on weight loss 6kg/11% in 4 months, moderate fat depletion, and moderate muscle wasting. Nutrition Recommendation 1) TF Jevity @ 60ml/hr x 24hr (goal). Water flush 100ml Q4H if allowed, adjust PRN. TF at goal volume provides 1728 kcal, 80gm protein, 1162ml free water 2) Yash 1 pk BID 3) Vitamin C 500mg BID, zinc sulfate 220mg x 10 days, MVI w/ minerals 1 tab daily 4) Monitor NPO status, TF tolerance, lab values, weight trend, and I/O Expected Outcomes/Goals: To gain/maintain weight Wound to improve Lab values to improve Fu 2-3 days Interpretation of weight loss: >10% in 6 months Body Fat Depletion (Severe): Mod to Severe Depletion Muscle Mass (Severe): Mod to Severe Depletion Protein Calorie Malnutrition: Severe Is there a minimum of two crit: Yes Date of Service: Mar 12, 2025 Billing Provider: MICKY SNYDER Cardiology Common Codes: [id number] INP/OBS CARE(Mod) ADEN ROWELL MD 03/13/25 1314: Consult Progress Note Problem List/Assessment/Plan Problem List/Assessment/Plan high risk pt , going to hospice, end of life care, needs PEG Tube, very poor prgonosis MICKY SNYDER Mar 12, 2025 16:05 ADEN ROWELL MD Mar 13, 2025 13:14
[2025-03-12 19:11] LABS: Hematocrit 41.0 % (36.0-46.0); Hemoglobin 13.3 g/dL (12.2-16.2); Mean Corpuscular Hemoglobin 21.3 pg (28.0-32.0); Mean Corpuscular Volume 66.0 fL (80.0-100.0)
[2025-03-12 19:46] LABS: Total Cells Counted 100.0 (100)
[2025-03-12] MEDS: VANCOMYCIN 500mg/100mL 100 ML IV ONE (20:12)
[2025-03-12] MEDS: NYSTATIN TOPICAL POWDER 15GM TOP SCH (21:47)
[2025-03-13] VITALS (8 sets, daily range): BP systolic 103–146; BP diastolic 60–97; PULSE 62–79; RESP 16–19; TEMP 97.6–98.7; O2SAT 94–99
[2025-03-13] MEDS: LISINOPRIL 5 MG TAB PO SCH (10:00)
[2025-03-13 11:12] LABS: Hematocrit 40.9 % (36.0-46.0); Hemoglobin 12.8 g/dL (12.2-16.2); Mean Corpuscular Hemoglobin 21.4 pg (28.0-32.0); Mean Corpuscular Volume 68.3 fL (80.0-100.0); Nucleated Red Blood Cells % 0.2 %
[2025-03-13 11:26] LABS: Potassium 3.6 mmol/L (3.5-5.1)
[2025-03-13 11:27] LABS: Anion Gap 12 (5-15); Carbon Dioxide 22 mmol/L (20-31)
[2025-03-13 11:32] LABS: BUN/Creatinine Ratio 11.9 (10.0-20.0)
[2025-03-13 11:38] LABS: Blood Urea Nitrogen 8 mg/dL (9-23); Calcium 8.4 mg/dL (8.7-10.4); Chloride 112 mmol/L (98-107); Glucose 106 mg/dL (74-106); Sodium 146 mmol/L (136-145)
[2025-03-13] MEDS: D5W/SOD CHL 0.45% 1,000 ML IV SCH (12:45)
--- NOTE | 2025-03-13 12:50 | DVHPN2 ---
Progress Note Date Seen: Mar 13, 2025 Medical Necessity Reason Pt with a Central, PICC or Fol: Yes The following are medically ne: Dick Catheter Reason for dick catheter: Bladder Retention/Obstruc Subjective Patient reports: No new complaints Review of Systems: HEENT:Normal, CVS:Normal, RESPIRATORY:Normal, GI:Normal, :Normal, MSK:Normal, NEURO:Normal Objective vital signs Vital Sign Date Time Temp Pulse Resp B/P (MAP) Pulse Ox O2 Delivery O2 Flow Rate FiO2 03/13/25 08:58 97.8 74 16 132/85 (101) 99 97.8 03/13/25 07:40 Nasal Cannula* 3 32 Total Intake and Output 03/12/25 03/12/25 03/13/25 15:00 23:00 07:00 Intake Total 200 ml 350 ml Output Total 625 ml 1302 ml Balance -425 ml -952 ml medications Current Medications Medications Dose Ordered Sig/Roman Route Start Time Stop Time Status Last Admin Dose Admin Ondansetron HCl 4 mg Q4HP PRN IV 03/04/25 23:45 03/05/25 18:02 4 MG Enoxaparin Sodium 30 mg DAILY SC 03/05/25 10:00 03/13/25 09:40 30 MG Morphine Sulfate 1 mg Q4HP PRN IV 03/05/25 04:30 03/07/25 13:24 1 MG Piperacillin Sod/ Tazobactam Sod 100 ml @ 25 mls/hr Q8HR IV 03/05/25 14:00 03/13/25 05:55 25 MLS/HR Pantoprazole Sodium 40 mg DAILY IV 03/06/25 10:00 03/13/25 09:40 40 MG Amiodarone HCl 200 mg Q12HR NG 03/07/25 22:00 03/12/25 21:46 200 MG Lactulose 30 ml DAILY NG 03/08/25 10:00 03/12/25 10:12 30 ML Lisinopril 10 mg DAILY PO 03/13/25 10:00 Nystatin 1 applic BID TOP 03/12/25 22:00 Dextrose/Sodium Chloride 1,000 ml @ 50 mls/hr Q20H IV 03/13/25 12:45 UNV Examination: GENERAL:Normal, HEENT:Normal, NECK:Normal, LUNGS:Normal, CVS:Normal, ABDOMEN:Normal, MSK:Normal, MSK:Abnormal (decub ulcer), SKIN:Normal, NEURO:Normal, :Normal laboratory and microbiology Laboratory Tests 03/13/25 10:28 Test 03/13/25 10:28 Range/Units Serum Glucose 106 74-106 mg/dL Microbiology Date/Time Source Procedure Growth Status 03/08/25 10:45 Voided Urine Urine Culture - Final Presumptive Caroline albicans Complete 03/05/25 09:57 Sacrum Gram Stain - Final Complete 03/05/25 09:57 Wound Culture - Final Staphylococcus aureus Enterococcus faecalis Pseudomonas aeruginosa Complete 03/04/25 20:02 Blood Blood Culture - Final NO GROWTH AFTER 5 DAYS OF INCUBATION. Complete Problem List/Assessment/Plan Problem List/Assessment/Plan Neurology Acute on chronic metabolic encephalopathy likely due to hypernatremia/sepsis/dehydration - CT head shows central greater than cortical cerebral atrophy, chronic microvascular changes Respiratory Chest x-ray bilaterally shows hyperinflated lungs, cardiomegaly Cardiovascular Wide complex Ventricular tachycardia s/p conversion End-stage dilated cardiomyopathy Heart failure with reduced ejection fraction [id number] LVH Moderate mitral and tricuspid regurgitation [id number] pericardial effusion, no tamponade - echo done showed LVEF less than 10% - on amiodarone 200mg bid - monitor urine output - AICD interrogation done, report pending Infectious disease Sepsis likely due to sacral wound Grade 4 sacral wound - wound cultures preliminary showing growth of Staph aureus, Enterococcus species - blood cultures pending - on vancomycin and Zosyn Nephrology HERIBERTO on CKD likely due to VMN Hypernatremia, improving Hypokalemia - free water via GT - potassium replaced PUD prophylaxis: Protonix DVT prophylaxis: Enoxaparin Feeding via NG tube- removed, swallow eval Goals of care discussed with the patient's [id number]. Code status: Full code- time spent was 21 mins LONG DISCUSSION WITH FAMILY EXPLAINED POOR PROGNOSIS AND OPTIONS OF TREATMENT- WISH PEG PLACEMENT- frederick López- high risk for procedure Plan discussed with: Patient, Son My Orders My Orders Orders - GENNY HERCULES MD Procedure Category Date Status Time Nystatin Powder PHA 03/12/25 In Process (Mycostatin Powder) 22:00 * Swallow Request ST 03/13/25 Transmitted 12:43 D5w/Sod Chl 0.45% PHA 03/13/25 Logged (D5w 1/2ns) 12:45 * Wireless Engineer CONS 03/13/25 Verified Consult Dietary Evaluation Review Recommendations by RD: Increase Calorie Intake, Protein Supplementation Comments: Pt meets criteria for Severe Protein-Calorie Malnutrition in the setting of chronic illness based on weight loss 6kg/11% in 4 months, moderate fat depletion, and moderate muscle wasting. Nutrition Recommendation 1) TF Jevity @ 60ml/hr x 24hr (goal). Water flush 100ml Q4H if allowed, adjust PRN. TF at goal volume provides 1728 kcal, 80gm protein, 1162ml free water 2) Yash 1 pk BID 3) Vitamin C 500mg BID, zinc sulfate 220mg x 10 days, MVI w/ minerals 1 tab daily 4) Monitor NPO status, TF tolerance, lab values, weight trend, and I/O Expected Outcomes/Goals: To gain/maintain weight Wound to improve Lab values to improve Fu 2-3 days Interpretation of weight loss: >10% in 6 months Body Fat Depletion (Severe): Mod to Severe Depletion Muscle Mass (Severe): Mod to Severe Depletion Protein Calorie Malnutrition: Severe Is there a minimum of two crit: Yes Date of Service: Mar 13, 2025 Billing Provider: GENNY HERCULES MD Common Visit Codes: [id number] INP/OBS CARE(HIGH) GENNY HERCULES MD Mar 13, 2025 12:50
--- NOTE | 2025-03-13 13:24 | DVHPN2 ---
Progress Note - Dictate Date Seen: Mar 13, 2025 Medical Necessity Reason Pt with a Central, PICC or Fol: Yes The following are medically ne: Dick Catheter Reason for dick catheter: Bladder Retention/Obstruc Subjective No new complaints Patient resting comfortably vital signs Vital Sign Date Time Temp Pulse Resp B/P (MAP) Pulse Ox O2 Delivery O2 Flow Rate FiO2 03/13/25 08:58 97.8 74 16 132/85 (101) 99 97.8 03/13/25 07:40 Nasal Cannula* 3 32 Total Intake and Output 03/12/25 03/12/25 03/13/25 15:00 23:00 07:00 Intake Total 200 ml 350 ml Output Total 625 ml 1302 ml Balance -425 ml -952 ml medications Current Medications Medications Dose Ordered Sig/Roman Route Start Time Stop Time Status Last Admin Dose Admin Ondansetron HCl 4 mg Q4HP PRN IV 03/04/25 23:45 03/05/25 18:02 4 MG Enoxaparin Sodium 30 mg DAILY SC 03/05/25 10:00 03/13/25 09:40 30 MG Morphine Sulfate 1 mg Q4HP PRN IV 03/05/25 04:30 03/07/25 13:24 1 MG Piperacillin Sod/ Tazobactam Sod 100 ml @ 25 mls/hr Q8HR IV 03/05/25 14:00 03/13/25 05:55 25 MLS/HR Pantoprazole Sodium 40 mg DAILY IV 03/06/25 10:00 03/13/25 09:40 40 MG Amiodarone HCl 200 mg Q12HR NG 03/07/25 22:00 03/12/25 21:46 200 MG Lactulose 30 ml DAILY NG 03/08/25 10:00 03/12/25 10:12 30 ML Lisinopril 10 mg DAILY PO 03/13/25 10:00 Nystatin 1 applic BID TOP 03/12/25 22:00 Dextrose/Sodium Chloride 1,000 ml @ 50 mls/hr Q20H IV 03/13/25 12:45 UNV objective General: NAD, patient is awake Chest: lung borja clear to auscultation Heart: RRR, no murmur Abdomen: non-distended, no tenderness to palpation, +BS laboratory and microbiology Laboratory Tests 03/13/25 10:28 Test 03/13/25 10:28 Range/Units Serum Glucose 106 74-106 mg/dL Problems(with codes): (1) Metabolic encephalopathy (2) Renal failure (3) Hypernatremia (4) Dehydration (5) Decubitus ulcer of back, stage 4 (6) UTI (urinary tract infection) (7) Sepsis (8) Congestive heart failure Prognosis Plan Case was reviewed with anesthesia doctor Patient is not deemed to be safe for any sedation for PEG tube placement For ejection fraction reads at 4% and she has had history of wide complex ventricular tachycardia Patient can be started on IV TPN or we can insert an NG tube and start her on tube feedings If the patient can tolerate orally we can supplement with ensure one can p.o. 4 times a day Dietary Evaluation Review Recommendations by RD: Increase Calorie Intake, Protein Supplementation Comments: Pt meets criteria for Severe Protein-Calorie Malnutrition in the setting of chronic illness based on weight loss 6kg/11% in 4 months, moderate fat depletion, and moderate muscle wasting. Nutrition Recommendation 1) TF Jevity @ 60ml/hr x 24hr (goal). Water flush 100ml Q4H if allowed, adjust PRN. TF at goal volume provides 1728 kcal, 80gm protein, 1162ml free water 2) Yash 1 pk BID 3) Vitamin C 500mg BID, zinc sulfate 220mg x 10 days, MVI w/ minerals 1 tab daily 4) Monitor NPO status, TF tolerance, lab values, weight trend, and I/O Expected Outcomes/Goals: To gain/maintain weight Wound to improve Lab values to improve Fu 2-3 days Interpretation of weight loss: >10% in 6 months Body Fat Depletion (Severe): Mod to Severe Depletion Muscle Mass (Severe): Mod to Severe Depletion Protein Calorie Malnutrition: Severe Is there a minimum of two crit: Yes Plan discussed with: Other (Dr Galan and Dr López) NASREEN PEREZ MD Mar 13, 2025 13:24
[2025-03-13] MEDS ORDERED: VANCOMYCIN 500mg/100mL 100 ML IV ONE (16:00)
[2025-03-14] VITALS (8 sets, daily range): BP systolic 139–152; BP diastolic 74–97; PULSE 68–80; RESP 16–18; TEMP 97.7–98.7; O2SAT 98–100
[2025-03-14] MEDS: ENOXAPARIN SOD 40 MG/0.4 ML SYRINGE SC SCH (10:18)
--- NOTE | 2025-03-14 16:17 | DVHDS2 ---
Discharge Summary Date of Admission Mar 04, 2025 at 23:43 Date of Discharge: Mar 14, 2025 Labs/Diagnostic Data: Laboratory Results Test 03/14/25 09:09 03/13/25 10:28 03/12/25 18:51 03/12/25 13:35 Creatinine 0.60 mg/dL (0.550-1.02) Glomerular Filtration Rate Calc 88 mL/min (>90) Random Vancomycin Level 12.3 ug/mL (5-10) White Blood Count 6.7 10^3/uL (4.4-10.8) Red Blood Count 5.98 10^6/uL (4.0-5.20) Hemoglobin 12.8 g/dL (12.2-16.2) Hematocrit 40.9 % (36.0-46.0) Mean Corpuscular Volume 68.3 fL (80.0-100.0) Mean Corpuscular Hemoglobin 21.4 pg (28.0-32.0) Mean Corpuscular Hemoglobin Concent 31.3 g/dL (32.0-36.0) Red Cell Distribution Width 16.5 % (11.8-14.3) Platelet Count 214 10^3/uL (140-450) Mean Platelet Volume 9.2 fL (6.9-10.8) Neutrophils (%) (Auto) 75.8 % (37.0-80.0) Lymphocytes (%) (Auto) 16.6 % (10.0-50.0) Monocytes (%) (Auto) 6.7 % (0.0-12.0) Eosinophils (%) (Auto) 0.7 % (0.0-7.0) Basophils (%) (Auto) 0.2 % (0.0-2.0) Neutrophils # (Auto) 5.1 10 ^3/uL (1.6-8.6) Lymphocytes # (Auto) 1.1 10 ^3/uL (0.4-5.4) Monocytes # (Auto) 0.4 10 ^3/uL (0-1.3) Eosinophils # (Auto) 0 10 ^3/uL (0-0.8) Basophils # (Auto) 0 10 ^3/uL (0-0.2) Nucleated Red Blood Cells 0.2 % Sodium Level 146 mmol/L (136-145) Potassium Level 3.6 mmol/L (3.5-5.1) Chloride Level 112 mmol/L (98-107) Carbon Dioxide Level 22 mmol/L (20-31) Anion Gap 12 (5-15) Blood Urea Nitrogen 8 mg/dL (9-23) BUN/Creatinine Ratio 11.9 (10.0-20.0) Serum Glucose 106 mg/dL (74-106) Calcium Level 8.4 mg/dL (8.7-10.4) Differential Total Cells Counted 100.0 (100) Neutrophils % (Manual) 72 (37.0-80.0) Band Neutrophils % (Manual) 0 Lymphocytes % (Manual) 19 (10.0-50.0) Monocytes % (Manual) 9 (0-12) Eosinophils % (Manual) 0 (0-7) Basophils % (Manual) 0 (0.0-2.0) Metamyelocytes % (manual) 0 Myelocytes % (Manual) 0 Promyelocytes % (Manual) 0 Blast Cells % (Manual) 0 Reactive Lymphocytes 0 Platelet Estimate Adequate Microcytosis Marked Total Bilirubin 0.3 mg/dL (0.2-1.0) Aspartate Amino Transferase (AST) 23 U/L (13-40) Alanine Aminotransferase (ALT) 18 U/L (7-40) Alkaline Phosphatase 83 U/L (46-116) Total Protein 5.9 g/dL (5.7-8.2) Albumin 3.2 g/dL (3.2-4.8) Test 03/08/25 10:45 03/08/25 05:20 03/06/25 04:25 03/06/25 00:14 Urine Color Yellow (Yellow) Urine Clarity Ex.turbid (Clear) Urine pH 5.5 (5.0-9.0) Urine Specific [place] 1.035 (1.001-1.035) Urine Protein 1+ (Negative) Urine Ketones Negative (Negative) Urine Blood Negative /uL (Negative) Urine Nitrite Negative (Negative) Urine Bilirubin Negative (Negative) Urine Urobilinogen Normal mg/dL (Negative) Urine Leukocyte Esterase 3+ /uL (Negative) Urine RBC 44 /hpf (0 - 4) Urine WBC Clumps Present /hpf (None Seen) Urine Microscopic WBC 63 /HPF (0-5) Urine Squamous Epithelial Cells Few /hpf (<5) Urine Bacteria None seen /hpf (None Seen) Urine Mucus Few (None Seen) Urine Yeast (Budding) Moderate /hpf (None Seen) Urine Osmolality 829 mOsm/kg Urine Creatinine 86.00 mg/dL (30.0-125.0) Urine Sodium 26 mmol/L (40-220) Urine Glucose Normal mg/dL (Normal) Magnesium Level 2.8 mg/dL (1.6-2.6) Vitamin B12 Level > 4000 pg/mL (211-911) Thyroid Stimulating Hormone (TSH) 2.07 uIU/mL (0.55-4.78) Ammonia 42 umol/L (11-32) Test 03/05/25 12:57 03/05/25 12:53 03/04/25 20:55 Influenza Type A Antigen Negative (Negative) Influenza Type B Antigen Negative (Negative) SARS-CoV-2 Antigen (Rapid) Negative (NEGATIVE) Prothrombin Time 12.8 sec (9.3-11.8) Prothrombin Time INR 1.23 (0.9-1.15) Activated Partial Thromboplast Time 24.4 SEC (24.5-34.5) Lactic Acid Level 2.0 mmol/L (0.4-2.0) Urine Amorphous Crystals Few /hpf (None Seen) Urine Hyaline Casts Few /lpf (0 - 2) Urine Opiates Screen Neg (NEGATIVE) Urine Fentanyl Screen Neg (NEGATIVE) Urine Barbiturates Screen Neg (NEGATIVE) Urine Phencyclidine Screen Neg (NEGATIVE) Urine Amphetamines Screen Neg (NEGATIVE) Urine Benzodiazepines Screen Neg (NEGATIVE) Urine Cocaine Screen Neg (NEGATIVE) Urine Cannabinoids Screen Neg (NEGATIVE) Other Laboratory Tests 03/14/25 09:09 03/13/25 10:28 Brief Hx & Hospital Course: see dictated note Condition at Discharge: Guarded Final Diagnosis/Problems List encephalopathy Discharge Disposition: Acute Care Facility Discharge Instruct/Medications Diet: See Comment Diet comment: pureed Activity: No Restrictions, As Tolerated Follow Up/Referral: fu with [place] Medications: per sep Scheduled Docusate Sodium (Colace), 1 CAP PO BID, (Reported) Senna (Senokot), 1 TAB PO BID, (Reported) Miscellaneous Medications Memantine Hydrochloride (Memantine HCl), 10 MG PO, (Reported) Discharge Statement: "Patient was advised to return to the ER or call 911 if any headaches, dizziness, shortness of breath, chest pain, abdominal pain, bleeding, fevers, or worsening of medical condition. Patient was counseled about treatment plan, medications, possible side effects, patientverbalized understanding. All questions were answered to the best of my ability. This discharge took greater then 30 minutes in planning, reviewing documentation, counseling the patient, and discussing with other team members." ASSESSMENT ASSESSMENT Assessment encephalopathy Date of Service: Mar 14, 2025 Billing Provider: GENNY HERCULES MD Common Visit Codes: [id number] DISCH DAY >30min GENNY HERCULES MD Mar 14, 2025 16:17
--- NOTE | 2025-03-14 16:45 | DVHDS ---
DATE OF DISCHARGE: 03/14/2025 TRANSFER SUMMARY HISTORY OF PRESENT ILLNESS: The patient is an 84-year-old lady who is admitted with history of altered level of consciousness and decreased oral intake and has history of congestive heart failure, dementia, decubitus ulcer and previous defibrillator. HOSPITAL COURSE: The patient was noted to be hypernatremic with a sodium of 173. The patient was also found to have a stage 4 decubitus ulcer. Her white count was within normal limits. Her wound cultures grew Staph aureus, Enterococcus faecalis, and Pseudomonas aeruginosa. The patient was hydrated with fluids as well as given antibiotics. I had an extensive discussion with the patient's family who wished for her to be a full code and she will now be transferred to [facility] for further treatment. Her head CAT scan showed no acute abnormalities. Echocardiogram done, showed ejection fraction of less than 10% with end-stage dilated left ventricle. FINAL DIAGNOSES: * Encephalopathy, likely secondary to sepsis with hypernatremia. * End-stage dilated cardiomyopathy. * Chronic systolic heart failure. * History of AICD. * Severe hypernatremia. * Sepsis with stage 4 sacral decubitus ulcer. * Acute renal failure, questionable vasomotor nephropathy. * Dementia. * Moderate protein malnutrition. * Wide complex ventricular tachycardia status post cardioversion. Time spent in discharge planning and review of plan with the patient, nursing, and paperwork was 39 minutes. MD NATTY Warren/SCOTT TID: [id number] RECEIPT: [id number]
--- NOTE | 2025-03-14 23:43 | DVHPN2 ---
Progress Note - Dictate Date Seen: Mar 14, 2025 Medical Necessity Reason Pt with a Central, PICC or Fol: Yes The following are medically ne: Dick Catheter Reason for dick catheter: Bladder Retention/Obstruc Subjective No new complaints Patient resting comfortably vital signs Vital Sign Date Time Temp Pulse Resp B/P (MAP) Pulse Ox O2 Delivery O2 Flow Rate FiO2 03/14/25 21:00 97.7 80 16 143/74 (97) 98 97.7 03/14/25 20:00 Nasal Cannula* 3 32 Total Intake and Output 03/13/25 03/13/25 03/14/25 15:00 23:00 07:00 Intake Total 0 ml 0 ml Output Total 450 ml 400 ml Balance -450 ml -400 ml medications Current Medications Medications Dose Ordered Sig/Roman Route Start Time Stop Time Status Last Admin Dose Admin Ondansetron HCl 4 mg Q4HP PRN IV 03/04/25 23:45 03/05/25 18:02 4 MG Morphine Sulfate 1 mg Q4HP PRN IV 03/05/25 04:30 03/07/25 13:24 1 MG Piperacillin Sod/ Tazobactam Sod 100 ml @ 25 mls/hr Q8HR IV 03/05/25 14:00 03/14/25 22:21 25 MLS/HR Pantoprazole Sodium 40 mg DAILY IV 03/06/25 10:00 03/14/25 10:16 40 MG Amiodarone HCl 200 mg Q12HR NG 03/07/25 22:00 03/14/25 22:21 200 MG Lactulose 30 ml DAILY NG 03/08/25 10:00 03/14/25 10:16 30 ML Lisinopril 10 mg DAILY PO 03/13/25 10:00 03/14/25 10:17 10 MG Nystatin 1 applic BID TOP 03/12/25 22:00 03/14/25 22:21 1 APPLIC Dextrose/Sodium Chloride 1,000 ml @ 50 mls/hr Q20H IV 03/13/25 12:45 03/14/25 10:16 50 MLS/HR Enoxaparin Sodium 40 mg DAILY SC 03/14/25 10:00 03/14/25 10:18 40 MG objective General: NAD, patient is awake Chest: lung borja clear to auscultation Heart: RRR, no murmur Abdomen: non-distended, no tenderness to palpation, +BS laboratory and microbiology Laboratory Tests 03/14/25 09:09 03/13/25 10:28 Test 03/13/25 10:28 Range/Units Serum Glucose 106 74-106 mg/dL Problems(with codes): (1) Congestive heart failure (2) UTI (urinary tract infection) (3) Sepsis (4) Metabolic encephalopathy (5) Renal failure (6) Hypernatremia (7) Dehydration Prognosis Assessment plan Wound culture showed multiple organisms including Staphylococcus aureus and Enterococcus faecalis Continue IV antibiotics, IV fluid hydration, diet as tolerated Family is requesting a possible PEG tube placement however patient is at very high-risk because of very low ejection fraction of 4% Consider IR consult for possible radiologically placed PEG tube Patient will be transferred to [place] for ongoing further management Dietary Evaluation Review Recommendations by RD: Increase Calorie Intake, Protein Supplementation Comments: Pt meets criteria for Severe Protein-Calorie Malnutrition in the setting of chronic illness based on weight loss 6kg/11% in 4 months, moderate fat depletion, and moderate muscle wasting. Nutrition Recommendation 1) TF Jevity @ 60ml/hr x 24hr (goal). Water flush 100ml Q4H if allowed, adjust PRN. TF at goal volume provides 1728 kcal, 80gm protein, 1162ml free water 2) Yash 1 pk BID 3) Vitamin C 500mg BID, zinc sulfate 220mg x 10 days, MVI w/ minerals 1 tab daily 4) Monitor NPO status, TF tolerance, lab values, weight trend, and I/O Expected Outcomes/Goals: To gain/maintain weight Wound to improve Lab values to improve Fu 2-3 days Interpretation of weight loss: >10% in 6 months Body Fat Depletion (Severe): Mod to Severe Depletion Muscle Mass (Severe): Mod to Severe Depletion Protein Calorie Malnutrition: Severe Is there a minimum of two crit: Yes Plan discussed with: Patient NASREEN PEREZ MD Mar 14, 2025 23:43
[2025-03-15 01:00] VITALS: BP 126/74; PULSE 77; RESP 16; TEMP 97.8; O2SAT 97
[2025-03-15 05:00] VITALS: BP 130/72; PULSE 71; RESP 17; TEMP 98; O2SAT 99
--- NOTE | 2025-03-15 05:37 | DVH ---
CHEST RADIOGRAPH Indication: chf Technique: Single frontal view of the chest was obtained COMPARISON: XY CHEST PORTABLE on DOS: 03/12/25, XY CHEST PORTABLE on DOS: 03/06/25, XY CHEST XRAY 1 VIE W on DOS: 03/05/25, XY CHEST PORTABLE on DOS: 03/04/25, XY CHEST PORTABLE on DOS: 11/06/24 FINDINGS: Lines and Tubes: Left chest AICD Lungs: Clear Pleura: No effusion. No pneumothorax. Cardiomediastinal contours: Cardiomegaly Bones: Unremarkable IMPRESSION: Interval extubation. No other significant interval change.
[2025-03-15 08:00] VITALS: PULSE 66
[2025-03-15 09:00] VITALS: BP 139/74; PULSE 69; RESP 15; TEMP 97.6; O2SAT 100
[2025-03-15 13:00] VITALS: BP 129/74; PULSE 71; RESP 15; TEMP 97.5; O2SAT 100
[2025-03-15 14:03] LABS: Sodium 145 mmol/L (136-145)
[2025-03-15 14:04] LABS: Anion Gap 9 (5-15); Carbon Dioxide 27 mmol/L (20-31)
[2025-03-15 14:10] LABS: BUN/Creatinine Ratio 19.7 (10.0-20.0); Blood Urea Nitrogen 14 mg/dL (9-23)
[2025-03-15 14:17] LABS: Calcium 8.3 mg/dL (8.7-10.4); Chloride 109 mmol/L (98-107); Glucose 108 mg/dL (74-106); Potassium 3.2 mmol/L (3.5-5.1)
[2025-03-15 15:16] LABS: Hematocrit 38.4 % (36.0-46.0); Hemoglobin 12.1 g/dL (12.2-16.2); Mean Corpuscular Hemoglobin 21.6 pg (28.0-32.0); Mean Corpuscular Volume 68.6 fL (80.0-100.0); Nucleated Red Blood Cells % 0.2 %
[2025-03-15 17:00] VITALS: BP 146/98; PULSE 66; RESP 15; TEMP 97.4; O2SAT 99
[2025-03-15] MEDS: POTASSIUM CHLORIDE 20 MEQ, LIDOCAINE 1% (LOCAL ANESTH.) 2 ML in SODIUM CHL 0.9% 100 ML IV ONE (17:56)
--- NOTE | 2025-03-15 18:51 | DVHPN2 ---
Assessment/Plan Assessment/Plan Progress note 84 F with HFrEF s/p AICD, sacral ulcer, dementia admitted for ALOC. Patient is for transfer to [place] Physical exam AOx1, alert, pleasant PERLLA MMM s1 s2 RRR systolic murmur coarse breath sound Abdomen soft nontender no le edema Labs EKG imaging reviewed Assessment and plan metabolic/toxic encephalopathy sepsis stage 4 decub ulcer HFreF s/p AICD chronic systolic HF severe hypernatremia HERIBERTO questionable VMN moderate protein malnutrition dementia wide comlex VT s/p cardioversion resume home meds encourage oral hydration c/w zosyn diet puree dvt ppx lovenox full code Plan discussed with: Other My Orders Orders - LEONEL FOSTER MD Procedure Category Date Status Time Transfer Orders XFER 03/15/25 Transmitted 14:17 Date of Service: Mar 15, 2025 Billing Provider: LEONEL FOSTER MD Common Visit Codes: [id number] INP/OBS CARE(HIGH) LEONEL FOSTER MD Mar 15, 2025 18:51
== END 2025-03-15 23:30 | disposition short-term general hospital (02) | DRG 871 ==
LOC: ER 19:19 → EDBD 19:19 → OVERFLOW 23:43 → TELE-WESTW 23:54 → WEST WING 03-15 14:21
PROVIDERS: ADMIT Student in an Organized Health Care Education/Training Program; ATTEND Student in an Organized Health Care Education/Training Program
PROC: 4B02XTZ Measurement of Cardiac Defibrillator, External Approach (ICD-10-PCS; principal; 2025-03-05)
PROC: 5A2204Z Restoration of Cardiac Rhythm, Single (ICD-10-PCS; 2025-03-05)
DX: A41.9 Sepsis, unspecified organism (principal); E43 Unspecified severe protein-calorie malnutrition; L89.144 Pressure ulcer of left lower back, stage 4; L89.154 Pressure ulcer of sacral region, stage 4; N17.0 Acute kidney failure with tubular necrosis; G93.41 Metabolic encephalopathy; E87.0 Hyperosmolality and hypernatremia; I47.10 Supraventricular tachycardia, unspecified; I42.0 Dilated cardiomyopathy; I50.22 Chronic systolic (congestive) heart failure; R64 Cachexia; I31.39 Other pericardial effusion (noninflammatory); I13.0 Hypertensive heart and chronic kidney disease with heart failure and stage 1 through stage 4 chronic kidney disease, or unspecified chronic kidney disease; Z20.822 Contact with and (suspected) exposure to COVID-19; E87.6 Hypokalemia; E86.0 Dehydration; R62.7 Adult failure to thrive; N18.30 Chronic kidney disease, stage 3 unspecified; E78.5 Hyperlipidemia, unspecified; G30.9 Alzheimer's disease, unspecified; F02.80 Dementia in other diseases classified elsewhere, unspecified severity, without behavioral disturbance, psychotic disturbance, mood disturbance, and anxiety; I08.1 Rheumatic disorders of both mitral and tricuspid valves; R13.10 Dysphagia, unspecified; Z68.26 Body mass index [BMI] 26.0-26.9, adult; Z74.01 Bed confinement status; Z95.810 Presence of automatic (implantable) cardiac defibrillator; Z51.5 Encounter for palliative care
CPT/HCPCS: 36415; 70450; 71045; 80048; 80053; 80202; 80307; 81001; 82140; 82565; 82570; 82607; 83605; 83735; 83935; 84132; 84295; 84300; 84443; 85007; 85025; 85027; 85610; 85730; 87040; 87077; 87086; 87088; 87186; 87205; 87426; 87804; 92610; 92960; 93005; 93306; 96365; G0378; J2003; J2405; J2470; J2543; J3480